=== PATIENT | female | born 1935 | race Caucasian/White ===

== ENCOUNTER 2019-06-20 09:47 | Inpatient (IN) ==
[2019-06-20] MEDS ORDERED: Aspirin 81 MG TAB.CHEW PO ONE (09:56)
[2019-06-20] MEDS ORDERED: Ondansetron 4 MG/2 ML VIAL IVP ONE ×2 (10:04→10:55)
[2019-06-20] MEDS ORDERED: Ondansetron 4 MG/2 ML VIAL ONE (10:05)
[2019-06-20 10:08] LABS: Basophils # 0.1 K/mcL (0.0-0.2); Basophils % 0.7 %; Eosinophils # 0.2 K/mcL (0.0-0.6); Eosinophils % 1.4 %; Hematocrit 47.3 % (35.3-44.9); Hemoglobin 16.2 g/dL (11.5-15.4); Immature Granulocytes % 0.5 % (0-4); Lymphocytes # 1.5 K/mcL (0.6-4.6); Lymphocytes % 10.2 %; Mean Corpuscular HGB Conc 34.2 g/dL (31.6-35.5); Mean Corpuscular Hemoglobin 32.1 pg (28.0-33.3); Mean Corpuscular Volume 93.7 fL (83.0-100.0); Mean Platelet Volume 10.5 fL (9.4-12.4); Monocytes # 1.1 K/mcL (0.0-1.3); Monocytes % 7.5 %; Neutrophils # 11.8 K/mcL (1.6-8.9); Platelet Count 294 K/mcL (140-400); Red Blood Count 5.05 M/mcL (3.82-4.97); Red Cell Distribution Width 12.7 % (11.5-14.5); Segmented Neutrophils % 79.7 %; White Blood Count 14.9 K/mcL (4.3-11.1)
[2019-06-20] MEDS: Nitroglycerin 0.4 MG TAB.SUBL SL PRN ×3 (10:10→11:09)
[2019-06-20 10:31] LABS: BUN/Creatinine Ratio 28 (6-26); Blood Urea Nitrogen 27 mg/dL (8-23); Calcium 10.4 mg/dL (8.6-10.3); Carbon Dioxide 22 mEq/L (23-29); Chloride 102 mEq/L (98-107); Glucose 217 mg/dL (70-105); Osmolality,Calculated 298 (280-300); Potassium 3.8 mEq/L (3.5-5.1); Sodium 138 mEq/L (136-145); eGFR For African Americans > 60 (> 60); eGFR For Non-African Americans 54 (> 60)
[2019-06-20 10:33] LABS: Troponin I < 0.03 ng/mL (< 0.04)
[2019-06-20 10:35] LABS: INR 0.9; Prothrombin Time 10.7 Seconds (9.4-12.1)
[2019-06-20 10:38] LABS: Activated Partial Thrombo Time 27.2 Seconds (26.0-36.0)
[2019-06-20] MEDS ORDERED: Isovue-370 500 ML BOTTLE IVP ONE (10:48)
--- NOTE | 2019-06-20 10:48 | Emergency Department Note ---
Disposition Clinical Impression: Vomiting Qualifiers: Vomiting type: unspecified Vomiting Intractability: non-intractable Nausea presence: with nausea Qualified Code(s): R11.2 - Nausea with vomiting, unspecified Disposition: Admitted As Inpatient Condition: Fair Time of Disposition: 13:34 Abdominal Pain HPI - General Chief Complaint: ED Abdominal Pain Stated Complaint: fall, rib pain Time Seen by Provider: 06/20/19 09:53 Source: patient Mode of arrival: ambulatory Limitations: no limitations Nursing Notes Reviewed: Yes Vital Signs Reviewed: Yes - History of Present Illness HPI Narrative: 83-year-old female brought in by EMS for evaluation of n/v and diaphoresis. Pt reports symptoms started acutely last night. Pt vomited prior to arrival but denied bloody or black emesis. last bm yesterday but none today. ECG showed st elevation in V1, V2 without reciprocal depressions. No chest pain or shortness of breath. Pt denies fever, chills, palpitations, syncope. Pain Scale: 9 - Related Data Home Medications Medication Instructions Recorded Confirmed Aspirin 81 mg PO QPM 08/04/15 06/20/19 Losartan/Hydrochlorothiazide 1 each PO QPM 08/04/15 06/20/19 [Hyzaar 100-12.5 Tablet] Loratadine [Claritin] 10 mg PO DAILY 08/23/18 06/20/19 Tolterodine Tartrate [Detrol] 2 mg PO BID 09/25/18 06/20/19 Cholecalciferol (D-3) [Vitamin D] 2,000 units PO QAM 06/20/19 06/20/19 Metoprolol Succinate [Toprol Xl] 25 mg PO QAM 06/20/19 06/20/19 Multivit-Min/Iron/Folic/Lutein 1 tab PO QPM 06/20/19 06/20/19 [Centrum Silver Women Tablet] Omeprazole 20 mg PO QAM 06/20/19 06/20/19 PARoxetine HCl [Paroxetine HCl] 20 mg PO QAM 06/20/19 06/20/19 Allergies Allergy/AdvReac Type Severity Reaction Status Date / Time Iodinated Contrast Media AdvReac Hives Verified 06/20/19 21:06 Penicillins [PCN] AdvReac Hives Verified 06/20/19 21:06 Znteody-Wci-Rde Reductase AdvReac Muscle Pain Verified 06/20/19 21:06 Inhibitor [Statins] All systems ED: reviewed and negative except as stated. Review of Systems: As Per HPI Abdominal Pain PMH - Past Medical History Medical history: Reports: cancer, CVA, hypertension, renal disease, TIA, other Female Surgical History: Reports: thyroidectomy, other Psychiatric history: Reports: no psych history - Social History Smoking status: Former smoker Alcohol use: Reports: none Drug use: Reports: none Physical Exam - General Limitations: no limitations General appearance: alert - Head Head exam: atraumatic, normocephalic - Chest Chest inspection: Present: normal inspection, symmetric chest wall rise - Respiratory Respiratory exam: Present: normal lung sounds bilaterally. Absent: respiratory distress, wheezes - Cardiovascular Cardiovascular exam: Present: regular rate, normal rhythm - Abdominal Exam Abdominal exam: Present: soft, tenderness (generalized). Absent: distention, guarding, rebound - Expanded Lower Extremity Exam Hip/Pelvis exam: Present: normal inspection Upper leg exam: Present: normal inspection - Back Exam Back exam: Present: normal inspection - Neurological Exam Neurological exam: Present: alert, oriented X3, CN II-XII intact - Psychiatric Psychiatric exam: Present: normal affect, normal mood - Skin Skin exam: Present: warm, diaphoresis (initial but improved during eval) Course Vital Signs Temperature 97.5 F L 06/20/19 09:51 Pulse Rate 75 06/20/19 09:51 Respiratory Rate 22 06/20/19 09:51 Blood Pressure 148/74 06/20/19 09:51 O2 Sat by Pulse Oximetry 92 06/20/19 09:51 Temperature 98.7 F 06/20/19 22:36 Pulse Rate 93 06/20/19 19:45 Respiratory Rate 17 06/20/19 19:45 Blood Pressure 112/74 06/20/19 22:36 O2 Sat by Pulse Oximetry 90 06/20/19 19:45 Oxygen Delivery Oxygen Delivery Room Air Abdominal Pain - MDM Narrative Medical decision making narrative: Unlikely STEMI without reciprocal depressions. CT abd/pelvis showed possible early SBO and general surgery, Dr. Lane, was consulted regarding case and presentation. Symptoms most likely related to findings on CT abd/pelvis. Pt became hypoxic while waiting for CT. hypoxia improved with supplemental O2. Pt was not in respiratory distress at this time. D dimer was elevated and CTA chest ordered for evaluation of PE. contrast listed as allergy but pt reports she has had contrast with scan in recent past. Pt given solumedrol and benadryl prior to CT and had no complications during or immediately after contrast given. CT did not show evidence of PE. Initial trop negative. Cardiology, Dr. Kaufman consulted regarding pt case who agreed not a STEMI. Pt will be admitted to hospitalist for further evaluation with general surgery and cardiology consult. - Medical Records Medical records reviewed: Yes I reviewed the patient's medical records. - Lab Data Lab results reviewed: Yes I reviewed the patient's lab results. Result diagrams: 06/20/19 09:58 06/20/19 15:59 Lab Results 06/20/19 06/20/19 06/20/19 Range/Units 09:58 09:58 09:58 WBC 14.9 H (4.3-11.1) K/mcL RBC 5.05 H (3.82-4.97) M/mcL Hgb 16.2 H (11.5-15.4) g/dL Hct 47.3 H (35.3-44.9) % MCV 93.7 (83.0-100.0) fL MCH 32.1 (28.0-33.3) pg MCHC 34.2 (31.6-35.5) g/dL RDW 12.7 (11.5-14.5) % Plt Count 294 (140-400) K/mcL MPV 10.5 (9.4-12.4) fL Immature Gran % 0.5 (0-4) % Seg Neutrophils % 79.7 % Lymphocytes % 10.2 % Monocytes % 7.5 % Eosinophils % 1.4 % Basophils % 0.7 % Neutrophils # 11.8 H (1.6-8.9) K/mcL Lymphocytes # 1.5 (0.6-4.6) K/mcL Monocytes # 1.1 (0.0-1.3) K/mcL Eosinophils # 0.2 (0.0-0.6) K/mcL Basophils # 0.1 (0.0-0.2) K/mcL PT 10.7 (9.4-12.1) Seconds INR 0.9 APTT 27.2 (26.0-36.0) Seconds D-Dimer 1475 H (0-500) ng/mLFEU Sodium 138 (136-145) mEq/L Potassium 3.8 (3.5-5.1) mEq/L Chloride 102 (98-107) mEq/L Carbon Dioxide 22 L (23-29) mEq/L BUN 27 H (8-23) mg/dL Creatinine 0.98 (0.60-1.20) mg/dL Est GFR ( Amer) > 60 (> 60) Est GFR (Non-Af Amer) 54 L (> 60) BUN/Creatinine Ratio 28 H (6-26) Glucose 217 H (70-105) mg/dL Calculated Osmolality 298 (280-300) Calcium 10.4 H (8.6-10.3) mg/dL Troponin I < 0.03 (< 0.04) ng/mL Specimen Rejected 06/20/19 Range/Units 14:38 WBC (4.3-11.1) K/mcL RBC (3.82-4.97) M/mcL Hgb (11.5-15.4) g/dL Hct (35.3-44.9) % MCV (83.0-100.0) fL MCH (28.0-33.3) pg MCHC (31.6-35.5) g/dL RDW (11.5-14.5) % Plt Count (140-400) K/mcL MPV (9.4-12.4) fL Immature Gran % (0-4) % Seg Neutrophils % % Lymphocytes % % Monocytes % % Eosinophils % % Basophils % % Neutrophils # (1.6-8.9) K/mcL Lymphocytes # (0.6-4.6) K/mcL Monocytes # (0.0-1.3) K/mcL Eosinophils # (0.0-0.6) K/mcL Basophils # (0.0-0.2) K/mcL PT (9.4-12.1) Seconds INR APTT (26.0-36.0) Seconds D-Dimer (0-500) ng/mLFEU Sodium (136-145) mEq/L Potassium (3.5-5.1) mEq/L Chloride (98-107) mEq/L Carbon Dioxide (23-29) mEq/L BUN (8-23) mg/dL Creatinine (0.60-1.20) mg/dL Est GFR ( Amer) (> 60) Est GFR (Non-Af Amer) (> 60) BUN/Creatinine Ratio (6-26) Glucose (70-105) mg/dL Calculated Osmolality (280-300) Calcium (8.6-10.3) mg/dL Troponin I (< 0.04) ng/mL Specimen Rejected Hemolyzed - Radiology Data Radiology results reviewed: Yes I reviewed the patient's radiology results. - EKG Data EKG attestation: Yes I reviewed and interpreted this EKG. EKG results narrative: ECG #1 NSR with rate <100 ST elevation in V1, V2 with LBBB morphology. No reciprocal depressions. ECG #2 NSR with rate of 75 unchanged from previous except for +PVC
[2019-06-20] MEDS ORDERED: methylPREDNISolone 125 MG/2 ML VIAL IVP ONE (10:55)
[2019-06-20] MEDS ORDERED: 0.9 % Sodium Chloride 1,000 ML IVC ONE (13:45)
[2019-06-20] MEDS ORDERED: Naloxone 0.4 MG/ML INJ IVP PRN (15:34)
--- NOTE | 2019-06-20 15:48 | Internal Med History&Physical ---
Date of Encounter: 06/20/19 Time of Encounter: 15:00 Internal Medicine - H&P: HPI Chief complaint: Nausea and vomiting Admitted From: Emergency Dept Plans for Post Hospital Care: Home History of present illness: Ms. Marrero is a 83 year old female with a past medical history significant for hypertension, presented to the emergency department because of acute onset of crampy abdominal pain and nausea and vomiting since last night. Patient describes her abdominal pain is generalized, nonradiating, sharp, aggravated w ith the food, no relieving factors. Associated with nausea and vomiting, started in the morning today, containing food particles, no blood noted. Patient mentioned that throughout the night she was having nausea and burping. Denies any fevers chills or rigors. Denies any complaints like this in the past. Denies any history of ulcerative colitis or Crohn disease. Does mention history of hernia repair in the past. Patient mentioned that her last meal was yesterday evening. She did have a bowel movement yesterday morning, containing solid and liquid components without any blood. She was passing flatus yesterday but she is not sure if she has passed any flatus today. Currently she is f eeling very nauseated. In the emergency department patient was hemodynamically stable. Lab work showed leukocytosis with WBC count of 14.9, hemoglobin of 16.2, elevated d-dimer. Patient EKG was obtained which showed questionable ST elevation in V1, V2, V3. Patient denies any chest pain and shortness of breath. EKG was repeated again which showed the same changes. Troponins are negative. In the context of her findings, it was unlikely that the patient is having any ST elevation myocardial infarction. Patient also had a few PVCs on the court recording monitor. There were also findings of low oxygen saturation and monitor around 88%. D- dimer was elevated. CTA was obtained which was negative for pulmonary embolism. CT also did not show any other evidence of pneumonia or findings explaining her oxygen saturations. In the ED, surgery was consulted. Recommended conservative management. Also recommended CT scan of the abdomen with oral contrast was ordered by the ED physician. Patient is admitted for further management. Past Med Surg Social Fam HX - Past Medical History Medical history: cancer, CVA, hypertension, renal disease, TIA, other Additional medical history: breast cancer Psychiatric history: no psych history - Past Surgical History Surgical History: herniorrhaphy, other Additional surgical history: kidney stone removed L kidney, hernia repair, tubal ligation left lumpectomy, d&c, carpal tunnel, lithotripsy, bilateral breast bx, parthyroidectomy, tyroid nodule and parathyroid, left breast cancer. - Social History Smoking Status: Former smoker Smokeless Tobacco Status: No Alcohol use: none Drug use: none - Family History Father Hx Family Cardiac Disorders: Yes - Additional Family History Additional family history: All brothers ahve CAD. SIster has breast CA and atrial fib Internal Medicine - H&P: Meds Aspirin 81 mg PO DAILY 08/04/15 [History] Cholecalciferol (Vitamin D3) [Vitamin D] 2,000 unit PO DAILY 08/04/15 [History] Losartan/Hydrochlorothiazide [Hyzaar 100-12.5 Tablet] 1 each PO DAILY 08/04/15 [History] Multivitamin [Flintstones] 1 each PO DAILY 08/04/15 [History] Omeprazole [PriLOSEC] 20 mg PO DAILY 08/04/15 [History] Paroxetine [Paxil] 10 mg PO DAILY 08/04/15 [History] Metoprolol [Lopressor] 12.5 mg PO DAILY 08/24/17 [History] Loratadine [Claritin] 10 mg PO DAILY 08/23/18 [History] Tolterodine Tartrate [Detrol] 2 mg PO BID 09/25/18 [History] Guaifenesin [Mucinex] 600 mg PO BID #20 tab.er.12h 01/24/19 [Rx] Allergy/AdvReac Type Severity Reaction Status Date / Time Iodinated Contrast Media AdvReac Hives Verified 01/24/19 10:36 Penicillins [PCN] AdvReac Hives Verified 01/24/19 10:36 Oludthx-Mja-Ywp Reductase AdvReac Muscle Pain Verified 01/24/19 10:36 Inhibitor [Statins] All Systems PM: A 10-system review of systems was performed and is negative for pertinent findings except as documented above in the HPI. Review of systems: General: Negative for fever, chills, rigors. HEENT: Negative for neck swelling, discharge from nose, discharge from ears. EYES: Negative for any discharge from the eyes. Respiratory: Negative for shortness of breath, orthopnea, exertional dyspnea Cardiovascular: Negative for chest pain, shortness of breath, orthopnea, PND. Gastrintestical: See HPI Genitourinary: Hx of urinary urgency and incontinence Hematological: Negative for blood loss, negative for active cancer. Hx of breast cancr, in remisison Neurological: Negative for headache, dizziness, blurry vision, loss os power and sensations. Endocrinology: Negative for constipation, polyuria, polydipsia. Integumentary: Negative for rash, wounds, ulcers. Psychiatric: Negative for anxiety or depression. - Constitutional Vitals: Temp Pulse Resp BP Pulse Ox 97.5 F L 92 20 148/98 100 06/20/19 09:51 06/20/19 13:30 06/20/19 12:00 06/20/19 13:30 06/20/19 13:30 Exam: General: Alert and oriented, mild physical distress, able to follow commands. HEENT: No thyromegaly, no lymphadenopathy, no discharge. Eyes: No discharge. Normal conjuctiva, no icterus Respiratory: Normal vesicular breathing, no added sounds, breathing equal in both sides. CVS: Normal heart sounds, no murmurs, regular rhthm, no edema Extremities: No peripheral edema, peripheral pulses intact. Lymph nodes: No lymphadenopathy Gastrointestinal: Abdomen soft, ditended, mildly tender in all quadrants. Bowel sounds appreciated Genitourinary: No paravertebral tenderness. Skin: No rash, ulcers or wound. Neurological: Alert and oriented. No focal deficits. Cranial nerves II-XII intact. Internal Med - H&P Results - Labs CBC & Chem 7: 06/20/19 09:58 06/20/19 09:58 Labs: Short CBC 06/20/19 Range/Units 09:58 WBC 14.9 H (4.3-11.1) K/mcL Hgb 16.2 H (11.5-15.4) g/dL Hct 47.3 H (35.3-44.9) % Plt Count 294 (140-400) K/mcL Neutrophils # 11.8 H (1.6-8.9) K/mcL BMP 06/20/19 09:58 Sodium 138 Potassium 3.8 Chloride 102 Carbon Dioxide 22 L BUN 27 H Creatinine 0.98 Glucose 217 H Calcium 10.4 H Cardiac Enzymes 06/20/19 Range/Units 09:58 Troponin I < 0.03 (< 0.04) ng/mL - Impressions ITS Impressions Chest X-Ray 06/20/19 09:54 IMPRESSION: No acute abnormality. Moderate-sized hiatal hernia. D/ / Humphrey Morales MD / Humphrey Morales MD Interpreting Provider: Humphrey Morales MD Abdomen/Pelvis CT 06/20/19 09:56 IMPRESSION: 1. Mildly dilated loops of small bowel predominantly within the mid to lower abdomen with collapse of the distal ileum. Although a discrete transition point is not identified, findings are highly suspicious for early/developing high-grade small bowel obstruction given mesenteric edema and trace ascites. 2. Large hiatal hernia. 3. Few 3-4 mm nodules within the right middle lobe and lingula, nonspecific and may be infectious or inflammatory in etiology. These can be followed up per Fleischner Society guidelines. RECOMMENDATIONS: Guidelines for follow-up and management of pulmonary nodules found on abdomen CT: <6 mm - No follow up recommend on the basis of the estimated low risk of malignancy. 6-8-mm - recommend follow-up chest CT after an appropriate interval (3-12 months depending on clinical risk). >8mm - immediate chest CT for further evaluation. Radiology 2017 http://pubs.rsna.org/doi/full/10.1148/[email or web address] D/ / 06/20/2019 11:19:18 [facility] Faye MD / [facility] Inter[facility] Provider: Maty Fyae MD Chest CTA 06/20/19 12:18 IMPRESSION: 1. No CTA evidence for acute pulmonary embolus. Otherwise, stable CT scan chest. D/ / Mirza Roman MD / Mirza Roman MD Interpreting Provider: Mirza Roman MD - Assessment and Plan (1) Small bowel obstruction Current Visit: Yes Status: Acute Assessment and plan: Presented with abdominal pain, nausea and vomiting. CT scan of the abdomen without contrast showed mildly dilated loops of small bowel predominantly within the mid to lower abdomen with collapse of the distal ileum. Discrete transition point is not identified. Findings highly suspicious for early high-grade small bowel obstruction given mesenteric edema and trace ascites. Large hiatal hernia. Also showed 3-4 mm nodules within the right middle lobe and lingula which could be inflammatory or infectious. Has a history of hernia repair. Contributing factor?? Surgery was consulted in the emergency department. Recommended conservative management. Will keep the patient nothing by mouth. Monitor electrolytes. IV fluids. NG tube placement. Repeat labs ordered to recheck the electrolytes Considering the patient had multiple episodes of vomiting since morning. (2) Nausea and vomiting Current Visit: Yes Status: Acute Assessment and plan: Zofran ordered for nausea and vomiting. Qualifiers: Vomiting type: unspecified Vomiting Intractability: intractable Qualified Code(s): R11.2 - Nausea with vomiting, unspecified (3) Hypertension Current Visit: Yes Status: Acute Assessment and plan: Currently blood pressure in the 150s. Hold off oral medications. IV hydralazine as needed for hypertension. Qualifiers: Hypertension type: essential hypertension Qualified Code(s): I10 - Essential (primary) hypertension (4) DVT prophylaxis Current Visit: Yes Status: Acute Assessment and plan: Subcutaneous heparin. (5) Abnormal EKG Current Visit: Yes Status: Acute Assessment and plan: Initial EKG showed ST elevation in V1, V2, V3. Elevationst were very mild. No other reciprocal changes in any other leads. EKG was repeated the same changes. No previous cardiac hx Patient also had a few PVCs on telemetry at that time patient was having nausea and vomiting and she was in distress. First troponin was negative. Repeat the troponin. Telemetry. (6) Hypoxia Current Visit: Yes Status: Acute Assessment and plan: Patient was noted to be hypoxic with saturations in high 80s. D-dimer was collected which was elevated. CT was done which was negative for pulmonary embolism. Hypoxia could be related to distress and abdominal distention. Abdominal decompression with NG tube. - Time Spent With Patient Total time spent is greater than 50% in coordination of care (as documented) at patient's floor/unit and/or counseling patient:
--- NOTE | 2019-06-20 16:42 | AcuteCare Surgery Consult Note ---
Date of Encounter: 06/20/19 Time of Encounter: 16:40 Assessment and Plan (1) Small bowel obstruction Current Visit: Yes Status: Acute 83F with concern for small bowel obstruction; having bowel function so may be resolving; awaiting results from repeat CT NPO iVF if vomits, then NG tube replace electrolytes activity as tolerated judicious use of narcotics; AM KUB serial exams will continue to follow, no acute surgery History of Present Illness Consult date: 06/20/19 Reason for consult: abdominal pain History of present illness: 83F PMh significant for breast cancer, CVA/TIA, HTN, prior ventral and umbilical hernia repair (unknown if mesh used) who presents with a one day history of crampy abdominal pain. The pain is localized to the mid abdomen, non radiating, no alleviating or exacerbating factors and no identifiable preciptating event. The pain rates 8/10, but controllable. The pain is associated with nausea and vomiting, non bloody, but bilious in nature. due to the nature of her symptoms she presented to the ED for further evaluation. A CT scan was obtained which was concerning for a possible small bowel obstruction, no identifiable transition point. Of note the patient has had flatus today, just prior to my evaluation. Past Med Surg Social Fam HX - Past Medical History Medical history: cancer, CVA, hypertension, renal disease, TIA, other Additional medical history: breast cancer Psychiatric history: no psych history - Past Surgical History Surgical History: herniorrhaphy, other Additional surgical history: kidney stone removed L kidney, hernia repair, tubal ligation left lumpectomy, d&c, carpal tunnel, lithotripsy, bilateral breast bx, parthyroidectomy, tyroid nodule and parathyroid, left breast cancer. - Social History Smoking Status: Former smoker Smokeless Tobacco Status: No Alcohol use: none Drug use: none - Family History Father Hx Family Cardiac Disorders: Yes Medications and Allergies Aspirin 81 mg PO DAILY 08/04/15 [History] Cholecalciferol (Vitamin D3) [Vitamin D] 2,000 unit PO DAILY 08/04/15 [History] Losartan/Hydrochlorothiazide [Hyzaar 100-12.5 Tablet] 1 each PO DAILY 08/04/15 [History] Multivitamin [Flintstones] 1 each PO DAILY 08/04/15 [History] Omeprazole [PriLOSEC] 20 mg PO DAILY 08/04/15 [History] Paroxetine [Paxil] 10 mg PO DAILY 08/04/15 [History] Metoprolol [Lopressor] 12.5 mg PO DAILY 08/24/17 [History] Loratadine [Claritin] 10 mg PO DAILY 08/23/18 [History] Tolterodine Tartrate [Detrol] 2 mg PO BID 09/25/18 [History] Guaifenesin [Mucinex] 600 mg PO BID #20 tab.er.12h 01/24/19 [Rx] Allergy/AdvReac Type Severity Reaction Status Date / Time Iodinated Contrast Media AdvReac Hives Verified 01/24/19 10:36 Penicillins [PCN] AdvReac Hives Verified 01/24/19 10:36 Lmkzofd-Ixx-Wst Reductase AdvReac Muscle Pain Verified 01/24/19 10:36 Inhibitor [Statins] Review of Systems All systems PM: 12 point ROS negative besides HPI findings General Surgery Exam Initial Vital Signs Temp Pulse Resp BP Pulse Ox 97.5 F L 75 22 148/74 92 06/20/19 09:51 06/20/19 09:51 06/20/19 09:51 06/20/19 09:51 06/20/19 09:51 - General physical appearance no distress - Eyes PERRL, normal ocular movement - ENT normocephalic - Neck trachea midline, no lymphadectomy - Respiratory normal expansion, normal respiratory effort - Cardiovascular Cardiovascular exam: Present: RRR - Abdomen Abdomen general surgery: Present: soft, distended, tender (non peritoneal, along mid abdomen; ), surgical scars - Integumentary Integumentary general surgery: Present: warm and dry - Neurologic Present: CN 2-12 grossly intact - Musculoskeletal Present: normal gait, normal posture - Psychiatric Psychiatric general surgery: Present: A&Ox3 Exam Initial Vital Signs Temp Pulse Resp BP Pulse Ox 97.5 F L 75 22 148/74 92 06/20/19 09:51 06/20/19 09:51 06/20/19 09:51 06/20/19 09:51 06/20/19 09:51 Results - Labs 06/20/19 09:58 06/20/19 09:58 Abnormal lab results WBC 14.9 K/mcL (4.3-11.1) H 06/20/19 09:58 RBC 5.05 M/mcL (3.82-4.97) H 06/20/19 09:58 Hgb 16.2 g/dL (11.5-15.4) H 06/20/19 09:58 Hct 47.3 % (35.3-44.9) H 06/20/19 09:58 Neutrophils # 11.8 K/mcL (1.6-8.9) H 06/20/19 09:58 D-Dimer 1475 ng/mLFEU (0-500) H 06/20/19 09:58 Carbon Dioxide 22 mEq/L (23-29) L 06/20/19 09:58 BUN 27 mg/dL (8-23) H 06/20/19 09:58 Est GFR (Non-Af Amer) 54 (> 60) L 06/20/19 09:58 BUN/Creatinine Ratio 28 (6-26) H 06/20/19 09:58 Glucose 217 mg/dL (70-105) H 06/20/19 09:58 Calcium 10.4 mg/dL (8.6-10.3) H 06/20/19 09:58 Diabetes panel 06/20/19 Range/Units 09:58 Sodium 138 (136-145) mEq/L Potassium 3.8 (3.5-5.1) mEq/L Chloride 102 (98-107) mEq/L Carbon Dioxide 22 L (23-29) mEq/L BUN 27 H (8-23) mg/dL Creatinine 0.98 (0.60-1.20) mg/dL Glucose 217 H (70-105) mg/dL Calcium 10.4 H (8.6-10.3) mg/dL Calcium panel 06/20/19 Range/Units 09:58 Calcium 10.4 H (8.6-10.3) mg/dL Pituitary panel 06/20/19 Range/Units 09:58 Sodium 138 (136-145) mEq/L Potassium 3.8 (3.5-5.1) mEq/L Chloride 102 (98-107) mEq/L Carbon Dioxide 22 L (23-29) mEq/L BUN 27 H (8-23) mg/dL Creatinine 0.98 (0.60-1.20) mg/dL Glucose 217 H (70-105) mg/dL Calcium 10.4 H (8.6-10.3) mg/dL Adrenal panel 06/20/19 Range/Units 09:58 Sodium 138 (136-145) mEq/L Potassium 3.8 (3.5-5.1) mEq/L Chloride 102 (98-107) mEq/L Carbon Dioxide 22 L (23-29) mEq/L BUN 27 H (8-23) mg/dL Creatinine 0.98 (0.60-1.20) mg/dL Glucose 217 H (70-105) mg/dL Calcium 10.4 H (8.6-10.3) mg/dL All other labs normal. - Imaging CT scan - abdomen: report reviewed, image reviewed CT scan - pelvis: report reviewed, image reviewed Consult Discharge Plan - Plan Referrals: Juan Randall DO [Primary Care Provider] -
[2019-06-20 17:13] LABS: BUN/Creatinine Ratio 27 (6-26); Blood Urea Nitrogen 26 mg/dL (8-23); Calcium 10.8 mg/dL (8.6-10.3); Carbon Dioxide 20 mEq/L (23-29); Chloride 101 mEq/L (98-107); Glucose 168 mg/dL (70-105); Magnesium 1.8 mg/dL (1.6-2.6); Osmolality,Calculated 293 (280-300); Potassium 3.9 mEq/L (3.5-5.1); Sodium 137 mEq/L (136-145); Troponin I < 0.03 ng/mL (< 0.04); eGFR For African Americans > 60 (> 60); eGFR For Non-African Americans 56 (> 60)
[2019-06-20] MEDS: *HR* Heparin 5,000 UNIT/ML VIAL SQ SCH (18:40)
[2019-06-20] MEDS: Pantoprazole 40 MG VIAL IVP SCH (18:40)
[2019-06-20] MEDS: Ondansetron 4 MG/2 ML VIAL IVP PRN (18:51)
[2019-06-21] MEDS: Ringers Solution, Lactated 1,000 ML IVC SCH ×3 (01:37→11:51)
[2019-06-21 05:15] LABS: Basophils % 0.2 %; Hematocrit 46.1 % (35.3-44.9); Hemoglobin 15.3 g/dL (11.5-15.4); Immature Granulocytes % 0.5 % (0-4); Lymphocytes # 0.7 K/mcL (0.6-4.6); Lymphocytes % 4.3 %; Mean Corpuscular HGB Conc 33.2 g/dL (31.6-35.5); Mean Corpuscular Hemoglobin 32.6 pg (28.0-33.3); Mean Corpuscular Volume 98.3 fL (83.0-100.0); Mean Platelet Volume 10.8 fL (9.4-12.4); Monocytes # 1.3 K/mcL (0.0-1.3); Monocytes % 7.6 %; Neutrophils # 14.8 K/mcL (1.6-8.9); Platelet Count 274 K/mcL (140-400); Red Blood Count 4.69 M/mcL (3.82-4.97); Segmented Neutrophils % 87.4 %; White Blood Count 16.9 K/mcL (4.3-11.1)
[2019-06-21 05:34] LABS: BUN/Creatinine Ratio 25 (6-26); Blood Urea Nitrogen 21 mg/dL (8-23); Calcium 9.5 mg/dL (8.6-10.3); Carbon Dioxide 24 mEq/L (23-29); Chloride 104 mEq/L (98-107); Glucose 140 mg/dL (70-105); Magnesium 1.9 mg/dL (1.6-2.6); Osmolality,Calculated 291 (280-300); Phosphorous 3.5 mg/dL (2.7-4.5); Potassium 3.8 mEq/L (3.5-5.1); Sodium 138 mEq/L (136-145); eGFR For African Americans > 60 (> 60); eGFR For Non-African Americans > 60 (> 60)
[2019-06-21] MEDS: *HR* Heparin 5,000 UNIT/ML VIAL SQ SCH ×2 (06:03→17:46)
[2019-06-21] MEDS: Pantoprazole 40 MG VIAL IVP SCH ×2 (06:03→17:46)
[2019-06-21] MEDS: Ondansetron 4 MG/2 ML VIAL IVP PRN (07:05)
--- NOTE | 2019-06-21 10:16 | AcuteCareSurgery Progress Note ---
Date of Encounter: 06/21/19 Time of Encounter: 08:30 - Assessment and Plan (1) Small bowel obstruction Current Visit: Yes Status: Acute Nausea persists. Will plan to place NGT for GI decmpression. NPO/IVF. Start IV abx d/t increasing leukocytosis. SBFT tomorrow. (2) Hypertension Current Visit: Yes Status: Chronic Qualifiers: Hypertension type: essential hypertension Qualified Code(s): I10 - Essential (primary) hypertension Subjective Patient reports: no new complaints, feels better, still having pain, pain is less, no flatus, no bowel movement, nausea Objective Vital Signs - Last 8 Hours Temp Pulse Resp BP Pulse Ox 06/21/19 09:12 93 06/21/19 07:34 98.6 F 89 16 144/81 93 06/21/19 03:42 98.7 F 104 15 129/65 91 Intake and Output 06/20/19 06/21/19 06/21/19 23:59 07:59 15:59 Intake Total 102 / 102 Output Total 0 / 0 250 / 250 Balance 102 / 102 -250 / -250 Intake: IV Fluids 102 / 102 Magnesium Sulfate 1 GM In 0.9 % 102 / 102 Sodium Chloride 100 ML @ 100 mls/hr IVPB ONCE ONE Rx#: [id number] Oral 0 / 0 Output: Urine 0 / 0 250 / 250 Other: # Voids 1 1 Weight 167.7 kg 126.189 kg Blood Glucose* 115 Patient Weight 06/21/19 23:59 Weight 126.189 kg - General physical appearance no distress, moderate pain - Eyes PERRL, normal ocular movement - ENT no congestion, dry mucosa - Neck Neck exam: trachea midline, no venous distension - Respiratory normal respiratory effort, clear to auscultation - Cardiovascular Cardiovascular exam: Present: RRR. Absent: JVD - Abdomen Abdomen: Present: bowel sounds present (hypoactive), soft, distended, tender Abdominal Tenderness: diffusely - Genitourinary normal external genitalia - Integumentary no rash - Neurologic CN 2-12 grossly intact, normal coordination - Musculoskeletal normal posture - Psychiatric oriented to time, oriented to person, oriented to place - Labs 06/21/19 04:47 06/21/19 04:47 Diabetes panel 06/20/19 06/20/19 06/21/19 Range/Units 09:58 15:59 04:47 Sodium 138 137 138 (136-145) mEq/L Potassium 3.8 3.9 3.8 (3.5-5.1) mEq/L Chloride 102 101 104 (98-107) mEq/L Carbon Dioxide 22 L 20 L 24 (23-29) mEq/L BUN 27 H 26 H 21 (8-23) mg/dL Creatinine 0.98 0.96 0.84 (0.60-1.20) mg/dL Glucose 217 H 168 H 140 H (70-105) mg/dL Calcium 10.4 H 10.8 H 9.5 (8.6-10.3) mg/dL Calcium panel 06/20/19 06/20/19 06/21/19 Range/Units 09:58 15:59 04:47 Calcium 10.4 H 10.8 H 9.5 (8.6-10.3) mg/dL Phosphorus 3.5 (2.7-4.5) mg/dL Pituitary panel 06/20/19 06/20/19 06/21/19 Range/Units 09:58 15:59 04:47 Sodium 138 137 138 (136-145) mEq/L Potassium 3.8 3.9 3.8 (3.5-5.1) mEq/L Chloride 102 101 104 (98-107) mEq/L Carbon Dioxide 22 L 20 L 24 (23-29) mEq/L BUN 27 H 26 H 21 (8-23) mg/dL Creatinine 0.98 0.96 0.84 (0.60-1.20) mg/dL Glucose 217 H 168 H 140 H (70-105) mg/dL Calcium 10.4 H 10.8 H 9.5 (8.6-10.3) mg/dL Adrenal panel 06/20/19 06/20/19 06/21/19 Range/Units 09:58 15:59 04:47 Sodium 138 137 138 (136-145) mEq/L Potassium 3.8 3.9 3.8 (3.5-5.1) mEq/L Chloride 102 101 104 (98-107) mEq/L Carbon Dioxide 22 L 20 L 24 (23-29) mEq/L BUN 27 H 26 H 21 (8-23) mg/dL Creatinine 0.98 0.96 0.84 (0.60-1.20) mg/dL Glucose 217 H 168 H 140 H (70-105) mg/dL Calcium 10.4 H 10.8 H 9.5 (8.6-10.3) mg/dL Consult Discharge Plan - Plan Referrals: Juan Randall DO [Primary Care Provider] -
--- NOTE | 2019-06-21 10:28 | Cardiology Consult Note ---
Date of Encounter: 06/21/19 Time of Encounter: 09:00 Assessment and Plan (1) Abnormal EKG Current Visit: Yes Status: Ruled-out EKG reviewed with Dr. Kaufman and compared to EKG in 2015. No ischemic changes noted. Troponins negative x2. Denies chest pain. 12hr tele reviewed: NSR with occasional PVCs. Will check an Echocardiogram, if normal- will sign off. (2) Hypertension Current Visit: Yes Status: Chronic Continue home antihypertensives (Toprol XL, Hyzaar). Management per primary team. Qualifiers: Hypertension type: essential hypertension Qualified Code(s): I10 - Essential (primary) hypertension Discussion w patient/family: The assessment and plan as outlined above was discussed with the patient and/or family members who expressed understanding and agreement. All questions were answered. Thank you for involving us in the care of your patient. Please call with any questions. Will discuss the above assessment and plan with Dr. Kaufman and make changes as necessary. History of Present Illness Consult date: 06/20/19 Consult reason: EKG changes History of present illness: Ms. Marrero is a 83 year old female with a PMH significant for HTN, presented to the ED d/t of acute onset of cramping abdominal pain w/ N/V. Pt describes her abdominal pain as generalized, nonradiating, sharp, aggravated with the food, no relieving factors. Associated with N/V, started in the morning today, containing food particles, no blood noted. Patient mentioned that throughout the night she was having nausea and burping. Patient denies chest pain and history of CAD. Past Med Surg Social Fam HX - Past Medical History Medical history: cancer, CVA, hypertension, renal disease, TIA, other Additional medical history: breast cancer Psychiatric history: no psych history - Past Surgical History Surgical History: herniorrhaphy, other Additional surgical history: kidney stone removed L kidney, hernia repair, tubal ligation left lumpectomy, d&c, carpal tunnel, lithotripsy, bilateral breast bx, parthyroidectomy, tyroid nodule and parathyroid, left breast cancer. - Social History Smoking Status: Former smoker Smokeless Tobacco Status: No Alcohol use: none Drug use: none - Family History Father Hx Family Cardiac Disorders: Yes Medications and Allergies Aspirin 81 mg PO QPM 08/04/15 [History] Losartan/Hydrochlorothiazide [Hyzaar 100-12.5 Tablet] 1 each PO QPM 08/04/15 [History] Loratadine [Claritin] 10 mg PO DAILY 08/23/18 [History] Tolterodine Tartrate [Detrol] 2 mg PO BID 09/25/18 [History] Cholecalciferol (D-3) [Vitamin D] 2,000 units PO QAM 06/20/19 [History] Metoprolol Succinate [Toprol Xl] 25 mg PO QAM 06/20/19 [History] Multivit-Min/Iron/Folic/Lutein [Centrum Silver Women Tablet] 1 tab PO QPM [History] Omeprazole 20 mg PO QAM 06/20/19 [History] PARoxetine HCl [Paroxetine HCl] 20 mg PO QAM 06/20/19 [History] Allergy/AdvReac Type Severity Reaction Status Date / Time Iodinated Contrast Media AdvReac Hives Verified 06/20/19 21:06 Penicillins [PCN] AdvReac Hives Verified 06/20/19 21:06 Givvwix-Jxe-Tqw Reductase AdvReac Muscle Pain Verified 06/20/19 21:06 Inhibitor [Statins] All Systems Review: The remainder of the systems were reviewed and are negative - Cardiovascular Cardiovascular: as per HPI, no chest pain at rest, no chest pain with exertion Physical Examination Vital Signs, Last 4 Hours Temp Pulse Resp BP Pulse Ox 06/21/19 09:12 93 06/21/19 07:34 98.6 F 89 16 144/81 93 General: Conversant, No Apparent Distress HEENT: Atraumatic, Normocephaly, Mucus Membranes Moist Neck: No JVD, Normal carotid pulses Cardiac: Reg Rate and Rhythm, Normal S1 and S2, No Murmur Lungs: Normal Breath Sounds, No Wheeze, Rales, Rhonchi Neuro: Alert and responsive, No focal deficits noted Extremities: No Clubbing, No Cyanosis, No Edema, Normal Pulses Results 06/21/19 04:47 06/21/19 04:47 Lab Results 06/20/19 06/20/19 06/20/19 09:58 09:58 15:59 WBC Hgb Hct Plt Count INR 0.9 APTT 27.2 D-Dimer 1475 H Sodium 138 137 Potassium 3.8 3.9 Chloride 102 101 Carbon Dioxide 22 L 20 L BUN 27 H 26 H Creatinine 0.98 0.96 Glucose 217 H 168 H Calcium 10.4 H 10.8 H Magnesium 1.8 Troponin I < 0.03 < 0.03 06/21/19 06/21/19 04:47 04:47 WBC 16.9 H Hgb 15.3 Hct 46.1 H Plt Count 274 INR APTT D-Dimer Sodium 138 Potassium 3.8 Chloride 104 Carbon Dioxide 24 BUN 21 Creatinine 0.84 Glucose 140 H Calcium 9.5 Magnesium 1.9 Troponin I - Imaging and Cardiology Other Results: 12hr tele reviewed: average HR 100, sinus with occassional PVCs. - EKG Interpretation EKG results cardiology: personally reviewed, normal ECG, sinus rhythm, no diagnostic ischemia Consult Discharge Plan - Plan Referrals: Juan Randall DO [Primary Care Provider] -
--- NOTE | 2019-06-21 11:40 | Electrocardiograph Report ---
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
[2019-06-21] MEDS: levoFLOXacin 750 MG/150 ML 750 MG/150 ML BAG IVPB SCH (11:50)
--- NOTE | 2019-06-21 12:35 | Internal Med Progress Note ---
Hospitalist Progress Note - Encounter Date of Encounter: 06/21/19 Time of Encounter: 08:35 - Subjective Interval History: The patient was seen at bedside. Mentions that she had improvement last night in terms of nausea and vomiting and abdominal pain but since morning she has been feeling worse. Combining of nausea without any vomiting. Complaining of worsening abdominal pain. Denies any fever, chills, rigors. Leukocytosis worsened. Denies any chest pain or shortness of breath. Has not moved her bowels since admission. She was passing the flatus last night, no flatus since morning. Got the x-ray KUB in the morning. - Exam Vitals: Temp Pulse Resp BP Pulse Ox 98.6 F 92 16 159/89 94 06/21/19 11:45 06/21/19 11:45 06/21/19 11:45 06/21/19 11:45 06/21/19 11:45 Exam: General: Alert and oriented, mild physical distress, able to follow commands. Respiratory: Normal vesicular breathing, no added sounds, breathing equal in both sides. CVS: Normal heart sounds, no murmurs, regular rhthm, no edema Extremities: No peripheral edema, peripheral pulses intact. Lymph nodes: No lymphadenopathy Gastrointestinal: Abdomen soft, ditended althought distention looks better than yesterday, mildly tender in all quadrants decreased as compared to yesterday. Bowel sounds very scant. Genitourinary: No paravertebral tenderness. Skin: No rash, ulcers or wound. Neurological: Alert and oriented. No focal deficits. Cranial nerves II-XII intact. - Assessment and Plan (1) Small bowel obstruction Current Visit: Yes Status: Acute Assessment and Plan: Presented with abdominal pain, nausea and vomiting. CT scan of the abdomen without contrast showed mildly dilated loops of small bowel predominantly within the mid to lower abdomen with collapse of the distal ileum. Discrete transition point is not identified. Findings highly suspicious for early high-grade small bowel obstruction given mesenteric edema and trace ascites. Large hiatal hernia. Also showed 3-4 mm nodules within the right middle lobe and lingula which could be inflammatory or infectious. CT scan of the abdomen with oral contrast reported the same findings. Has a history of hernia repair. Contributing factor?? X-ray KUB in the morning showed persistent dilated loops of small bowel in keeping with history of small bowel obstruction Surgery on board, conservative management for now. Will keep the patient nothing by mouth. Monitor electrolytes. IV fluids. NG tube placement as per surgery. Patient has been started on antibiotics because of worsening leukocytosis. (2) Nausea and vomiting Current Visit: Yes Status: Acute Assessment and Plan: Zofran ordered for nausea and vomiting. (3) Hypertension Current Visit: Yes Status: Chronic Assessment and Plan: Currently blood pressure in the 150s. Hold off oral medications. IV hydralazine as needed for hypertension. (4) DVT prophylaxis Current Visit: Yes Status: Acute Assessment and Plan: Subcutaneous heparin. (5) Abnormal EKG Current Visit: Yes Status: Ruled-out Assessment and Plan: Initial EKG showed ST elevation in V1, V2, V3. Elevationst were very mild. No other reciprocal changes in any other leads. EKG was repeated the same changes. No previous cardiac hx Patient also had a few PVCs on telemetry at that time patient was having nausea and vomiting and she was in distress. Troponin repeated twice is negative. Cardiology was consulted. No active intervention at this point. Echo pending. Telemetry. (6) Hypoxia Current Visit: Yes Status: Acute Assessment and Plan: Patient was noted to be hypoxic with saturations in high 80s in the emergency department D-dimer was collected which was elevated. CT was done which was negative for pulmonary embolism. Hypoxia could be related to distress and abdominal distention. Abdominal decompression with NG tube. (7) Leucocytosis Current Visit: Yes Status: Acute Assessment and Plan: Etiology could be related to small bowel obstruction. Possibility of infection cannot be ruled out. Patient had been started on antibiotic by the surgery Continue to monitor. - Time Spent with Patient Total time spent is greater than 50% in coordination of care (as documented) at patient's floor/unit and/or counseling patient: Internal Medicine: Result - Labs CBC & Chem 7: 06/21/19 04:47 06/21/19 04:47 Labs: Short CBC 06/21/19 Range/Units 04:47 WBC 16.9 H (4.3-11.1) K/mcL Hgb 15.3 (11.5-15.4) g/dL Hct 46.1 H (35.3-44.9) % Plt Count 274 (140-400) K/mcL Neutrophils # 14.8 H (1.6-8.9) K/mcL BMP 06/20/19 06/21/19 15:59 04:47 Sodium 137 138 Potassium 3.9 3.8 Chloride 101 104 Carbon Dioxide 20 L 24 BUN 26 H 21 Creatinine 0.96 0.84 Glucose 168 H 140 H Calcium 10.8 H 9.5 Cardiac Enzymes 06/20/19 Range/Units 15:59 Troponin I < 0.03 (< 0.04) ng/mL - ABG Interpretation ABG results: PT/INR, D-dimer PT 10.7 Seconds (9.4-12.1) 06/20/19 09:58 D-Dimer 1475 ng/mLFEU (0-500) H 06/20/19 09:58 - Impressions Impressions Chest CTA 06/20/19 12:18 IMPRESSION: 1. No CTA evidence for acute pulmonary embolus. Otherwise, stable CT scan chest. D/ / Mirza Roman MD / Mirza Roman MD Interpreting Provider: Mirza Roman MD Abdomen/Pelvis CT 06/20/19 15:30 IMPRESSION: 1. Stable findings consistent with a mid to distal small bowel obstruction. Mildly distended fluid filled small bowel loops with transition distally. Mild infiltration of the mesenteric fat. No free air or significant interloop fluid collections. Trace pelvic ascites. 2. Otherwise stable CT of the abdomen and pelvis. D/ / 06/20/2019 16:13:20 Corey Khanna MD / Татьяна Clayton Interpreting Provider: Corey Khanna MD KUB X-Ray 06/21/19 07:00 IMPRESSION: Persistent dilated loops of small bowel in keeping with history of small bowel obstruction. D/ / Maty Faye MD / Maty Faye MD Interpreting Provider: Maty Faye MD Consult Discharge Plan - Plan Referrals: Juan Randall DO [Primary Care Provider] - ____ (2) Nausea and vomiting Qualifiers: Vomiting type: unspecified Vomiting Intractability: intractable Qualified Code(s): R11.2 - Nausea with vomiting, unspecified (3) Hypertension Qualifiers: Hypertension type: essential hypertension Qualified Code(s): I10 - Essential (primary) hypertension (7) Leucocytosis Qualifiers: Leukocytosis type: unspecified Qualified Code(s): D72.829 - Elevated white blood cell count, unspecified
[2019-06-21] MEDS: MetroNIDAZOLE 500 MG/100 ML 500 MG/100 ML BAG IVPB SCH ×3 (13:17→23:56)
[2019-06-21] MEDS: D5% in 0.9% NACL w KCl 20 MEQ/1,000 ML MLS IVC SCH (14:18)
[2019-06-21] MEDS ORDERED: Perflutren Lipid Microsphere 1.3 ML in 0.9 % Sodium Chloride 8.7 ML IVP ONE (16:37)
--- NOTE | 2019-06-21 17:35 | Acute Care Surgery Event Note ---
Date of Encounter: 06/21/19 Time of Encounter: 17:25 Pt complained recurrent CP. A STAT EKG was obtained. She is found to have a STEMI. Prior to cardiac cath, a discussion is had with the hospitalist in regard to pt's partial SBO. She is found to have dilated bowel with hypoactive BS this morning. A decision to place NGT is made d/t persistent nausea. It is understood that her cardiac emergency will most likely require cardiac stents and DAPT. Recommend immediate cardiac care as indicated. ACS will continue current observation and treatment of partial SBO.
[2019-06-21] MEDS ORDERED: Furosemide 40 MG/4 ML VIAL IVP ONE (17:48)
[2019-06-21] MEDS ORDERED: Iopamidol 125 ML INFUS..BTL ONE ×3 (17:54→19:11)
[2019-06-21] MEDS ORDERED: Heparin 1,000 UNITS/500 mL 500 ML ONE (17:54)
[2019-06-21] MEDS ORDERED: Nitroglycerin 1,000 MCG/10 ML VIAL IV ONE (17:54)
[2019-06-21] MEDS ORDERED: 0.9 % Sodium Chloride 1,000 ML ONE ×2 (17:54→18:29)
[2019-06-21] MEDS ORDERED: *HR* Heparin 10,000 UNIT/10 ML VIAL ONE (17:54)
--- NOTE | 2019-06-21 18:08 | Event Note ---
Date of Encounter: 06/21/19 Time of Encounter: 18:00 - Cardiology Event Note 83 YOF with hx of HTN presented to the ER with symptoms of abdominal pain, nausea and vomiting the night prior to presentation. Elevated WBC and a left shift found to have partial SBO on CT of the abdomen. EKG was found to show prominence of right precordials with minimal changes in high lateral leads. Troponins on arrival and 6 hours later negative. Patient was seen by cardiology today complained of periumbilical discomfort but no chest pain. This was partially relevied by NG tube according to documentaion and family. Patient around 3:30 complained of back pain and worsening SOB hence an EKG was obtained and a troponin. EKG shows more prominent ST elevations in V1-V3 and a troponin was found to be 30. Cathlab was activated but patient now continues to deny chest pain and has continued periumbilical pain. Surgery has cleared patient for dual antiplatelet therapy in anticipation of LHC as SBO non surgical. ECHO was obtained reveals apical HK. R/B/A of LHC d/w patient and family and they agree to proceed.
--- NOTE | 2019-06-21 18:26 | Event Note ---
Date of Encounter: 06/21/19 Time of Encounter: 17:00 Alerted by the nurse that the pt devloped back apin and is feeling worse. EKG was obtianed and troponins levels sent. EKG was concerning for ST elevations in V1, V2 ,V3 more pronounced as compared to yesterday. Troponin came out 30.41. Cardiolgoy was consulted stat and d/w Dr. Martin from [facility]. No surgical interventins are planned and it is ok from surgery point of view to proceed woth the cardiac cath. 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 Was given rectal aspirin and oral plavix 300 mg. Dispositin following the cath depends upon the intervetion. 2N vs ICU. D/w Dr. Arambula from ICU.
[2019-06-21] MEDS ORDERED: methylPREDNISolone 125 MG/2 ML VIAL ONE (18:29)
[2019-06-21] MEDS ORDERED: Tirofiban 12.5 MG/250ML 12.5 MG/250 ML BAG ONE (18:47)
--- NOTE | 2019-06-21 19:55 | Invasive Diagnostic Lab Proc ---
Name: Kellee Marrero Date of Study: 06/21/2019 Date: 1935 Ht: 66.9in Medical Record#: [id number] Age: 83 Wt: 277.78lb Gender: Female BSA: 2.32 Order #: [id number] BMI: 43.6 Physicians Procedure Physician: William Kaufman MD Referring MD: Referring MD: Staff Name Position Time In Myla Victor RT (R) Monitor 06:25 PM Nahomy De Santiagofer RT (R) Scrub 06:25 PM Maryuri Reynoso RN Toddler Caregiver 06:25 PM Bladimir Victorian RT (R) Scrub 06:49 PM Indications Indication Non-Stemi Procedures Performed Procedure CORONARY ARTERY ANGIO S&I PRQ CARD SKIP STENT W/ANGIO 1 VSL Pre-Procedure Checklist Informed consent is complete signed and on chart. H&P is on chart. ID band is on and ID verified with patient. Patient NPO for procedure The procedure was described for the patient and questions were answered. Blood Pressure: 168/81 ECG is on chart. Plan of Care Patient will tolerate the procedure without complications. Adequate level of comfort will be maintained. Hemodynamics will remain stable Patient will recover from procedure without complications. Respiratory function will be maintained. Cardiac rhythm will remain stable. Patient temperature will be maintained. Patient and/or family have verbalized understanding of the procedure. Patient Education Chief Complaint/Reason for Test: Cardiac Cath Developmental Category: Geriatric (65+ years) Developmentally Appropriate for Age: Yes Learning Barriers: None Education Needs: Procedure Education Method: Verbal Information Taught: Cardiac Cath Educational Evaluation: Able to repeat information Intravenous Access Time IV Size Location DC'd Fluid/Drip Rate Units RN 06:22 PM 18g 1 1/4" Patent On Arrival Lt Wrist 0.9NaCl Maryuri Reynoso RN 06:25 PM 20g 1 1/4" Patent On Arrival Rt Antecubital Maryuri Reynoso RN Allergies Iodinated Contrast Media - IV Dye Tmzibjy-Abt-Zkk Reductase Inhibitor Iodinated Contrast Media - Oral and Penicillins Levofloxacin Penicillin SULFA (sulfonamide) Contrast Media, Iodine Related PCN Iodinated Contrast- Oral and IV Dye Iodinated Contrast Media Vital Signs Time BP (mmHg) HR (bpm) O2 Sat. RR (bpm) LOC 06:35 PM / % 5 = Fully awake and oriented or at pre-proc level 06:35 PM / % 4 = Oriented but drowsy 06:50 PM / % 4 = Oriented but drowsy 07:05 PM / % 4 = Oriented but drowsy 06:36 PM 195 / 129 100 100 % 18 06:40 PM 186 / 115 96 100 % 15 06:45 PM 186 / 110 98 98 % 15 06:50 PM 185 / 110 102 99 % 16 06:52 PM 180 / 111 101 99 % 15 06:55 PM 183 / 106 94 98 % 15 07:00 PM 184 / 110 91 100 % 16 07:05 PM 186 / 103 92 98 % 18 07:10 PM 187 / 107 90 98 % 16 07:15 PM 187 / 108 89 100 % 16 07:20 PM 192 / 112 83 100 % 16 07:25 PM 193 / 101 91 100 % 16 07:30 PM 166 / 106 90 99 % Procedural Medications Time Medication Dose Units Method Given By 06:35 PM Oxygen 2 L/min Oxy Mask Maryuri Reynoso RN 06:36 PM Benadryl 50 mg Intravenous Maryuri Reynoso RN 06:36 PM Solumedrol 125 mg Intravenous Maryuri Reynoso RN 06:40 PM Lidocaine 2% 15 ml Subcutaneous William Kaufman MD 06:44 PM Heparin 5000 units Intravenous Maryuri Reynoso RN 06:49 PM Aggrastat Bolus: 62 ml Intravenous Maryuri Reynoso RN 06:49 PM Aggrastat 12.5mg/250ml 22.5 ml Intravenous Maryuri Reynoso RN 07:25 PM Nitroglycerin 400 mcg Intraarterial William Kaufman MD ASA Classification: CLASS II- Mild systemic disease (i.e. well-controlled diabetes, hypertension, asthma, cigarette smoking) Kimmie Score Preprocedure Postprocedure Activity 2- Moves 4 extremities sustained head lift Activity 2- Moves 4 extremities sustained head lift Circulation 2- SBP +/= 20 points of pre-anesthetic level Circulation 2- SBP +/= 20 points of pre-anesthetic level Consciousness 2- Awake and alert oriented x 3 Consciousness 2- Awake and alert oriented x 3 O2 Saturation 2- Able to maintain O2 satruation of 92% on room air O2 Saturation 2- Able to maintain O2 satruation of 92% on room air Respiratory 2- Able to deep breathe and cough well Respiratory 2- Able to deep breathe and cough well Total Score 10 Total Score 10 Contrast Agent: Isovue Diagnostic Contrast: 225 ml Total Contrast: 225 ml Fluoro Dose: 130 mGy Activated Clotting Time Time Seconds to Clot 06:43 PM 144 Procedure Log Time Note Enter By 06:25 PM Myla Victor RT (R) Position: Monitor Time in: 18:25 twilson 06:25 PM Candy De Santiago RT (R) Position: Scrub Time in: 18:25 twilson 06:25 PM Maryuri Reynoso RN Position: Toddler Caregiver Time in: 18:25 twilson 06:25 PM Patient charges- Angio tray pack, Navilyst 3mm J, Pulse Oximetry and ACIST tubing and transducer twilson 06:34 PM CathStat 06:34 PM Vitals capture started with the following parameters, Patient=Adult, Interval=5 min, Initial Eenogmfz=349 mmHg, Deflation Rate=3 mmHg, Cuff placed on Right Arm 06:34 PM Recorded ECG: IP=984 Condition=Condition 1 06:34 PM Pt arrived to bobcat driver/labor 2 at 18:34 twilson 06:34 PM Physician arrived 18:34 twilson :34 PM Meet and greet completed twilson :34 PM Sign in performed according to hospital policy. Informed consent was obtained. twilson 06:35 PM Time: 18:35 Oxygen on at 2 L/min per Oxy Mask by Maryuri Reynoso RN twilson 06:35 PM Patient with no chest pain at this time. twilson 06:35 PM Time: 18:35 Patient comfortable and pain free: Yes twilson :35 PM Time: 18:35LOC: 5 = Fully awake and oriented or at pre-proc level twilson :35 PM ASA Class CLASS II- Mild systemic disease (i.e. well-controlled diabetes, hypertension, asthma, cigarette smoking) twilson 06:35 PM Procedure start 18:35 twilson 06:36 PM Hair removed from procedure site in procedure lab using clippers. Bilateral groin prepped with Chloraprep by Candy De Santiago RT (R), then patient was draped. Skin intact. twilson :36 PM KX=568 bpm, XAAI=485/129 mmhg, RtD6=773.0 %, Resp=18 B/min 06:36 PM Time out was performed according to hospital policy. Conscious sedation and anesthesia was achieved (see medication log with in this report above) twilson 06:36 PM Time: 18:36 Benadryl 50 mg Intravenous Given by Maryuri Reynoso RN twilson 06:37 PM Time: 18:36 Solumedrol 125 mg Intravenous Given by Maryuri Reynoso RN twilson 06:37 PM Drawing ACT. twilson 06:38 PM Pressure channel 1 zeroed. 06:39 PM NIBP STAT measurement started. 06:40 PM Time: 18:40 15 ml Lidocaine 2% to right groin Subcutaneous Given by William Kaufman MD twilson 06:40 PM Micro-Introducer Kit utilized for sheath placement twilson 06:40 PM HR=96 bpm, WQFW=157/115 mmhg, XzH2=939.0 %, Resp=15 B/min 06:40 PM Access obtained by percutaneous puncture. 6Fr 10cm Terumo Lacarne sheath placed in right Femoral artery. [id number] twilson 06:40 PM 5Fr FL 4 catheter inserted over the wire DNC twilson 06:41 PM Wire removed twilson 06:41 PM Recorded Pressure: Ao, HR=98, Condition=Condition 1 (Aorta) Ao 169/97/128 06:42 PM ACT running. twilson 06:42 PM LCA angiography performed in multiple views. twilson 06:42 PM Recorded Pressure: Ao, HR=78, Condition=Condition 1 (Aorta) Ao 145/84/110 06:43 PM Wire reinserted. twilson 06:43 PM Catheter removed twilson 06:43 PM 5Fr FR 4 catheter inserted over the wire DNC twilson 06:43 PM At 18:43 the ACT was 144 seconds. twilson 06:44 PM Time: 18:44 Heparin 5000 units Intravenous Given by Maryuri Reynoso RN twilson 06:45 PM Recorded Pressure: Ao, TS=475, Condition=Condition 1 (Aorta) Ao 143/94/117 06:45 PM Wire removed twilson 06:45 PM RCA angiography performed in multiple views. twilson 06:45 PM Recorded Pressure: Ao, HR=98, Condition=Condition 1 (Aorta) Ao 137/90/112 06:45 PM HR=98 bpm, SCIW=633/110 mmhg, SpO2=98.0 %, Resp=15 B/min 06:46 PM Wire reinserted. twilson 06:46 PM Catheter removed twilson 06:47 PM Inflation device was opened. twilson 06:47 PM 6Fr XB LAD 3.5 Cordis guide catheter was used to cannulate the PCI vessel successfully. reused? No twilson 06:48 PM Wire removed twilson 06:48 PM Recorded Pressure: Ao, ZA=699, Condition=Condition 1 (Aorta) Ao 160/92/121 06:48 PM PCI Status Urgent twilson 06:49 PM Cordell Victor RT (R) Position: Scrub Time in: 18:49 to relieve Candy De Santiago RT (R) twilson 06:49 PM Time: 18:49 Aggrastat Bolus: 62 ml Intravenous Given by Maryuri Reynoso RN Deleon pump twilson 06:49 PM Time: 18:49 Aggrastat 12.5mg/250ml 22.5 ml Intravenous Given by Maryuri Reynoso RN Deleon pump twilson 06:50 PM PCI lesion in Proximal LAD. Pre Stenosis: 99 Pre ALISSON Flow: 1: Slow Penetration without Perfusion twilson 06:50 PM Time: 18:35 Patient comfortable and pain free: Yes twilson 06:50 PM Time: 18:35LOC: 4 = Oriented but drowsy twilson 06:50 PM NR=892 bpm, BTYM=770/110 mmhg, SpO2=99.0 %, Resp=16 B/min 06:50 PM Coronary Dominance: right twilson 06:50 PM Proximal Left Anterior Descending Coronary Artery with 99% stenosis. If graft is supplying this territory, 0 % stenosis. twilson 06:51 PM .014 [employer] [place] 190cm guide wire across target lesion- successful. reused? No twilson 06:51 PM NIBP STAT measurement started. 06:52 PM II=693 bpm, VYNB=100/111 mmhg, SpO2=99.0 %, Resp=15 B/min 06:52 PM Bed management called. Patient will go to ICU 5. twilson 06:53 PM Guide wire removed intact. twilson 06:53 PM .014 Player Services Representative 50 190cm guide wire across target lesion- successful. reused? No twilson 06:55 PM HR=94 bpm, QKIU=521/106 mmhg, SpO2=98.0 %, Resp=15 B/min 06:58 PM 2.0 mm x 20 mm Emerge Monorail balloon across target lesion- successful. reused? No twilson 07:00 PM HR=91 bpm, UVOT=384/110 mmhg, IwJ6=343.0 %, Resp=16 B/min 07:01 PM Recorded Pressure: Ao, HR=95, Condition=Condition 1 (Aorta) Ao 148/93/119 07:01 PM Balloon catheter removed intact. twilson 07:02 PM 1.5 mm x 15 mm Emerge Monorail Push balloon across target lesion- successful. reused? No twilson 07:03 PM Balloon catheter removed intact. twilson 07:03 PM 1.2 mm x 12 mm Retail Product Demo Specialist Monorail balloon across target lesion- successful. reused? No twilson 07:05 PM Time: 18:50LOC: 4 = Oriented but drowsy twilson 07:05 PM Time: 18:50 Patient comfortable and pain free: Yes twilson 07:05 PM HR=92 bpm, RTCS=123/103 mmhg, SpO2=98.0 %, Resp=18 B/min 07:06 PM Balloon inflated @ 6 karla for 9 seconds twilson 07:06 PM Recorded Pressure: Ao, HR=90, Condition=Condition 1 (Aorta) Ao 148/91/118 07:06 PM Balloon inflated @ 8 karla for 9 seconds twilson 07:06 PM Balloon inflated @ 6 karla for 11 seconds twilson 07:07 PM Balloon inflated @ 6 karla for 6 seconds twilson 07:07 PM Recorded Pressure: Ao, HR=90, Condition=Condition 1 (Aorta) Ao 154/83/113 07:07 PM Balloon catheter removed intact. twilson 07:07 PM 1.5 mm x 15 mm Emerge Monorail Push balloon across target lesion- successful. reused? yes twilson 07:08 PM Balloon inflated @ 6 karla for 6 seconds twilson 07:09 PM Balloon inflated @ 6 karla for 6 seconds twilson 07:10 PM Balloon catheter removed intact. twilson 07:10 PM HR=90 bpm, MIXH=566/107 mmhg, SpO2=98.0 %, Resp=16 B/min 07:11 PM 2.0 mm x 20 mm Emerge Monorail balloon across target lesion- successful. reused? yes twilson 07:12 PM Balloon inflated @ 6 karla for 15 seconds twilson 07:13 PM Balloon catheter removed intact. twilson 07:14 PM Recorded Pressure: Ao, HR=88, Condition=Condition 1 (Aorta) Ao 159/85/116 07:15 PM 2.25 mm x 20 mm Emerge Monorail balloon across target lesion- successful. reused? No twilson 07:15 PM HR=89 bpm, APCF=740/108 mmhg, RsS9=678.0 %, Resp=16 B/min 07:17 PM Balloon inflated @ 8 karla for 13 seconds twilson 07:17 PM Balloon catheter removed intact. twilson 07:19 PM 2.75mm x 24mm Synergy drug-eluting stent across target lesion- successful Lot #[id number] tw 07:20 PM Time: 19:05 Patient comfortable and pain free: Yes tw:20 PM Time: 19:05LOC: 4 = Oriented but drowsy twilson 07:20 PM Stent deployed @ 9 karla for 12 seconds twilson 07:20 PM HR=83 bpm, EZPO=335/112 mmhg, XqA7=152.0 %, Resp=16 B/min 07:21 PM Stent balloon reinflated @ 13 karla for 10 seconds twilson 07:22 PM Stent delivery system removed intact. twilson 07:22 PM Recorded Pressure: Ao, HR=85, Condition=Condition 1 (Aorta) Ao 169/80/116 07:22 PM Guide wire removed intact. twilson 07:22 PM Wire reinserted. twilson 07:22 PM Guide catheter removed intact. twilson 07:23 PM 5Fr Pigtail catheter inserted over the wire DNC twilson 07:24 PM Unable to cross valve. twilson 07:24 PM Catheter removed twilson 07:24 PM Bolus angiogram of right Femoral complete: 2 ml/sec for a total of 4 mls twilson 07:25 PM HR=91 bpm, DATO=082/101 mmhg, BqJ5=760.0 %, Resp=16 B/min 07:25 PM Time: 19:25 Nitroglycerin 400 mcg Intraarterial Given by William Kaufman MD twilson 07: PM Procedure completed at 19:26 06/21/2019 twilson 07: PM Did you address ALISSON flow and Dominance? YesCoronary Dominance: right twilson : PM Isovue 370 - 125ml,3 Bottle(s) used. twilson 07: PM Recorded ECG: HR=87 Condition=Condition 1 07:27 PM Arterial sheath pulled, Angio-seal closure device used and was Successful S/N. twilson : PM Estimated Blood Loss: less than 20cc twilson 07: PM Post ECG NSR twilson 07: PM Post Blood Pressure 193/101 tw 07: PM 19:27 Post Pulses Bilateral DP & PT 1+ tw: PM 19:27 Post Pulses Bilateral radial 2+ tw: PM Information taught Cardiac Cath and Angioseal tw: PM Education needs Procedure, Plan of Care, and Responsibilities of Patient in Care tw: PM Learning barriers :None : PM Education Methods Verbal : PM Education evaluation Able to repeat information : PM Site status No bleeding/ No Hematoma - Rt Groin as reported by Cordell Victor RT (R) at 19:29 tw:29 PM Opsite applied tw: PM Patient with 1500 cc urine in maguire. tw 07:30 PM Plavix given on 3A before patient arrived. twilson 07:30 PM Family placed in consult room. tw 07:30 PM HR=90 bpm, VYWK=752/106 mmhg, SpO2=99.0 % 07:32 PM Sign out completed: Radiation Dose 1182.02 mGy, 130 Gy/cm2 Fluoro Time: 15.7 Isovue 370 - 200ml contrast 225 ml given by William Kaufman MD. Complications: None. 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 Sedation minutes 56. Cardiac Rehab Consult needed: Yes. Confirmed administered medications: Yes tw 07:35 PM Report given to Yeyo MARCELINO Pt taken to ICU Room #5. 19:33 twilson 07:37 PM Emptied 1800cc urine out of maguire. twilson 07:40 PM Lesion found in Mid RCA. Pre Stenosis: 55 Pre ALISSON Flow: twilson 07:40 PM Lesion found in Mid LAD. Pre Stenosis: 70 Pre LAISSON Flow: twilson 07:40 PM Lesion found in Distal Circumflex. Pre Stenosis: 70 Pre ALISSON Flow: twilson 07:41 PM Lesion found in 1st Marginal. Pre Stenosis: 50 Pre ALISSON Flow: twilson 07:41 PM Lesion found in Right PDA. Pre Stenosis: 65 Pre ALISSON Flow: twilson 07:41 PM Right Coronary, Right Posterior Descending Arteries with Right Posterolateral and Acute Marginal branches with 65 % stenosis. If graft is supplying this area, 0 % stenosis twilson 07:41 PM Circumflex, Obtuse Marginal, Left Posterior Descending, and Left Posterolateral Coronary Arteries with 70 % stenosis. If graft is supplying this area, 0 % stenosis twilson 07:41 PM Mid/Distal Left Anterior Descending Coronary Artery and diagonal branches with 70% stenosis. If graft is supplying this area, 0 % stenosis twilson 07:41 PM Delay to floor No twilson 07:41 PM Patient out of room: 19:41 twilson Complications Complication None Hemodynamics Pressures Site Systolic/A Wave Diastolic/V Wave Mean AO 169 97 128 AO 145 84 110 AO 143 94 117 AO 137 90 112 AO 160 92 121 AO 148 93 119 AO 148 91 118 AO 154 83 113 AO 159 85 116 AO 169 80 116 Post Procedure Information Blood Pressure: 193/101 mmHg Rhythm: NSR Post procedural instructions were given Closure Device Time Device Success/Fail 06/21/2019 7:32:00 PM Mechanical Compression Successful Site Checks Time Location Status Staff Sheath In? Note 07:29 PM Rt Groin No bleeding/ No Hematoma Cordell Victor RT (R) Pulses Time Site Pre-Procedure Post-Procedure Note 06/21/2019 6:22:00 PM Bilateral DP & PT 1+ 06/21/2019 6:23:00 PM Bilateral radial 2+ 7:27:00 PM Bilateral DP & PT 1+ 7:27:00 PM Bilateral radial 2+ Updated by Myla Victor RT (R) on 06/21/2019 7:47:03 PM electronically signed on 06/21/2019 7:47:57 PM with status of Final
[2019-06-21] MEDS ORDERED: Tirofiban 12.5 MG/250ML 12.5 MG/250 ML BAG IVC SCH (20:00)
[2019-06-22 04:03] LABS: Basophils % 0.1 %; Hematocrit 46.6 % (35.3-44.9); Hemoglobin 15.4 g/dL (11.5-15.4); Immature Granulocytes % 0.5 % (0-4); Lymphocytes # 0.5 K/mcL (0.6-4.6); Lymphocytes % 5.1 %; Mean Corpuscular Hemoglobin 32.3 pg (28.0-33.3); Mean Corpuscular Volume 97.7 fL (83.0-100.0); Mean Platelet Volume 10.6 fL (9.4-12.4); Monocytes # 0.5 K/mcL (0.0-1.3); Monocytes % 4.6 %; Neutrophils # 8.8 K/mcL (1.6-8.9); Platelet Count 273 K/mcL (140-400); Red Blood Count 4.77 M/mcL (3.82-4.97); Red Cell Distribution Width 13.1 % (11.5-14.5); Segmented Neutrophils % 89.7 %; White Blood Count 9.8 K/mcL (4.3-11.1)
[2019-06-22 04:26] LABS: BUN/Creatinine Ratio 23 (6-26); Blood Urea Nitrogen 19 mg/dL (8-23); Calcium 8.7 mg/dL (8.6-10.3); Carbon Dioxide 23 mEq/L (23-29); Chloride 104 mEq/L (98-107); Glucose 157 mg/dL (70-105); Magnesium 1.8 mg/dL (1.6-2.6); Osmolality,Calculated 294 (280-300); Potassium 3.5 mEq/L (3.5-5.1); Sodium 139 mEq/L (136-145); eGFR For African Americans > 60 (> 60); eGFR For Non-African Americans > 60 (> 60)
[2019-06-22] MEDS: Pantoprazole 40 MG VIAL IVP SCH (05:39)
[2019-06-22] MEDS: *HR* Heparin 5,000 UNIT/ML VIAL SQ SCH ×2 (05:39→17:32)
[2019-06-22] MEDS: MetroNIDAZOLE 500 MG/100 ML 500 MG/100 ML BAG IVPB SCH (05:39)
[2019-06-22] MEDS: D5% in 0.9% NACL w KCl 20 MEQ/1,000 ML MLS IVC SCH ×2 (06:55→14:16)
--- NOTE | 2019-06-22 07:56 | AcuteCareSurgery Progress Note ---
Date of Encounter: 06/22/19 Time of Encounter: 07:50 - Assessment and Plan (1) Small bowel obstruction Current Visit: Yes Status: Acute Partial small bowel obstruction appears to have clinically resolved. Discontinue nasogastric tube. Start volume restricted clear liquids. Start aspirin and Plavix. Subjective Narrative: The patient is seen and evaluated on morning rounds with the acute care surgery team. Nasogastric tube drainage is minimal. I reviewed the CT scan as well as the abdominal film from yesterday. The patient does not appear to have a high- grade bowel obstruction. Since the nasogastric tube drainage is very low and she has normal bowel sounds I would recommend removing the nasogastric tube. Start volume restricted clear liquids. She may start her aspirin and Plavix Objective Vital Signs - Last 8 Hours Temp Pulse Resp BP Pulse Ox 06/22/19 07:33 99 17 170/96 94 06/22/19 06:00 98 16 142/88 92 06/22/19 05:00 100 18 154/89 97 06/22/19 04:00 100 20 151/86 91 06/22/19 03:00 98.2 F 100 18 150/92 95 06/22/19 02:00 96 20 137/80 93 06/22/19 01:00 97 20 146/84 92 06/22/19 00:00 99.0 F 95 18 141/84 93 Intake and Output 06/21/19 06/21/19 06/22/19 15:59 23:59 07:59 Intake Total 1100 / 1200 100 / 1200 1450 / 1450 Output Total 600 / 1550 950 / 950 Balance 1100 / -350 -500 / -350 500 / 500 Intake: IV Fluids 1100 / 1200 100 / 1200 1450 / 1450 KCl 20mEq in D5-0.9 NaCl 20 meq 1000 / 1000 In 1,000 ml @ 100 mls/hr IVC . Q10H [facility] Rx#:[id number] Lactated Ringers 1,000 ML @ 100 1000 / 1000 mls/hr IVC .Q10H [facility] Rx#: [id number] Aggrastat 12.5 MG/250 ML 12.5 250 / 250 mg In 250 ml @ 0.15 MCG/KG/MIN 22.714 mls/hr IVC .Q11H1M [facility] Rx#:[id number] Flagyl Premix 500 MG/100 ML 500 100 / 200 100 / 200 200 / 200 mg In 100 ml @ 100 mls/hr IVPB Q6HR [facility] Rx#:[id number] Output: Gastric Tube Lavage Amount 0 / 0 Right Nare 0 / 0 Catheter 600 / 1300 950 / 950 Gastric Drainage 0 / 0 Other: Meal npo Percent of Meal Consumed 0% Blood Glucose* 148 124 191 - General physical appearance well developed, well nourished, no pain - Respiratory normal expansion, normal respiratory effort, clear to auscultation - Cardiovascular Cardiovascular exam: Present: RRR, no murmurs/rubs/gallops - Abdomen Abdomen: Present: bowel sounds present, soft, non tender - Neurologic normal coordination, normal sensation - Psychiatric oriented to time, oriented to person, oriented to place, speech is normal, memory intact - Labs 06/22/19 03:37 06/22/19 03:37 Diabetes panel 06/22/19 Range/Units 03:37 Sodium 139 (136-145) mEq/L Potassium 3.5 (3.5-5.1) mEq/L Chloride 104 (98-107) mEq/L Carbon Dioxide 23 (23-29) mEq/L BUN 19 (8-23) mg/dL Creatinine 0.81 (0.60-1.20) mg/dL Glucose 157 H (70-105) mg/dL Calcium 8.7 (8.6-10.3) mg/dL Calcium panel 06/22/19 Range/Units 03:37 Calcium 8.7 (8.6-10.3) mg/dL Pituitary panel 06/22/19 Range/Units 03:37 Sodium 139 (136-145) mEq/L Potassium 3.5 (3.5-5.1) mEq/L Chloride 104 (98-107) mEq/L Carbon Dioxide 23 (23-29) mEq/L BUN 19 (8-23) mg/dL Creatinine 0.81 (0.60-1.20) mg/dL Glucose 157 H (70-105) mg/dL Calcium 8.7 (8.6-10.3) mg/dL Adrenal panel 06/22/19 Range/Units 03:37 Sodium 139 (136-145) mEq/L Potassium 3.5 (3.5-5.1) mEq/L Chloride 104 (98-107) mEq/L Carbon Dioxide 23 (23-29) mEq/L BUN 19 (8-23) mg/dL Creatinine 0.81 (0.60-1.20) mg/dL Glucose 157 H (70-105) mg/dL Calcium 8.7 (8.6-10.3) mg/dL Consult Discharge Plan - Plan Referrals: Juan Randall DO [Primary Care Provider] -
--- NOTE | 2019-06-22 08:44 | Electrocardiograph Report ---
[address] [place] [address] Test Date: 2019-06-22 Pat Name: Kellee Marrero Department: 109 Room: [facility] Gender: F Facilities Management Executive: : 1935 Requested By: William Kaufman Order Number: [id number] Reading MD: Edward Jones Measurements Intervals [place] Rate: 97 P: 55 MD: 155 QRS: -3 QRSD: 88 T: 75 QT: 337 QTc: 392 Interpretive Statements SINUS RHYTHM WITH FREQUENT VENTRICULAR PREMATURE COMPLEXES IN A BIGEMINAL PATTERN LEFT ATRIAL ENLARGEMENT ANTEROSEPTAL MYOCARDIAL INFARCTION, OF INDETERMINATE AGE Electronically Signed On 06-22-2019 8:42:34 EDT by Edward Jones
[2019-06-22] MEDS ORDERED: Aspirin 81 MG TAB.CHEW PO SCH ×2 (09:00→18:00)
[2019-06-22] MEDS ORDERED: Metoprolol XL (24 HR) Succ 25 MG TAB.ER.24H PO SCH (09:00)
[2019-06-22] MEDS: levoFLOXacin 750 MG/150 ML 750 MG/150 ML BAG IVPB SCH (09:02)
--- NOTE | 2019-06-22 09:12 | Internal Med Progress Note ---
Hospitalist Progress Note - Encounter Date of Encounter: 06/22/19 Time of Encounter: 08:00 - Subjective Interval History: Patient came to the ICU last night after left heart catherization for STEMI. She had PCI and stent to her LAD and was transferred to the ICU last night. Since then, she has done well has had no further chest pain or shortness of shaheen ath. Regarding her abdomen, she has no abdominal pain, nausea, or vomiting. She has not passed flatus yet and/or had a bowel movement. Dr. Santos came to the bedside as I was finishing my assessment and exam. We discussed the case together, and he is going to pull the NG tube. He will allow us to give her her cardiac meds by mouth as necessary. Patient will be transitioned out of ICU to telemetry floor for ongoing care and management. - Exam Vitals: Temp Pulse Resp BP Pulse Ox 97.8 F 101 20 132/69 98 06/22/19 07:50 06/22/19 08:22 06/22/19 08:22 06/22/19 08:22 06/22/19 08:22 Exam: General: NAD, CP free HEENT: NG in olace; dry mucosa, neck supple Chest: CTA B, NO WRR. RRR, no MTR. Abdomen: soft, minimally distended, + hypoactive BS Ext: No calf pain; full ROM, equal pulses Neuro: A&Ox3, no focal deficits. Skin: warm and dry - Assessment and Plan (1) STEMI (ST elevation myocardial infarction) Current Visit: Yes Status: Acute Assessment and Plan: 1. S/P PCI/stent last night; patient doing well with no further symptoms. 2. ASA/Plavix and cardiac meds as appropriate. 3. Cardiology following. 4. Transfer out of ICU to cardiac unit. (2) Small bowel obstruction Current Visit: Yes Status: Acute Assessment and Plan: 1. Discussed with Dr. Santos this morning. 2. NG tube to be pulled per Dr. Santos, judicious liquid diet per Dr. Santos. 3. Surgery following. (3) Hypertension Current Visit: Yes Status: Chronic Assessment and Plan: 1. Resume home meds as appropriate. 2. Hydralazine for breakthrough HTN. DVT Prophylaxis: Heparin SQ - Time Spent with Patient Total time spent is greater than 50% in coordination of care (as documented) at patient's floor/unit and/or counseling patient: 25 - 35 minutes Plan of Care Discussed with: other (patient, MDR team, Dr. Santos) Internal Medicine: Result - Labs CBC & Chem 7: 06/22/19 03:37 06/22/19 03:37 Labs: Short CBC 06/22/19 Range/Units 03:37 WBC 9.8 (4.3-11.1) K/mcL Hgb 15.4 (11.5-15.4) g/dL Hct 46.6 H (35.3-44.9) % Plt Count 273 (140-400) K/mcL Neutrophils # 8.8 (1.6-8.9) K/mcL BMP 06/22/19 03:37 Sodium 139 Potassium 3.5 Chloride 104 Carbon Dioxide 23 BUN 19 Creatinine 0.81 Glucose 157 H Calcium 8.7 Cardiac Enzymes 06/21/19 06/21/19 Range/Units 16:00 17:12 Troponin I 30.41 H* 32.90 H* (< 0.04) ng/mL - ABG Interpretation ABG results: PT/INR, D-dimer PT 10.7 Seconds (9.4-12.1) 06/20/19 09:58 D-Dimer 1475 ng/mLFEU (0-500) H 06/20/19 09:58 - Impressions Impressions Abdomen/Pelvis CT 06/20/19 15:30 IMPRESSION: 1. Stable findings consistent with a mid to distal small bowel obstruction. Mildly distended fluid filled small bowel loops with transition distally. Mild infiltration of the mesenteric fat. No free air or significant interloop fluid collections. Trace pelvic ascites. 2. Otherwise stable CT of the abdomen and pelvis. D/ / 06/20/2019 16:13:20 Corey Khanna MD / Татьяна Clayton Interpreting Provider: Corey Khanna MD Consult Discharge Plan - Plan Referrals: Juan Randall DO [Primary Care Provider] - (1) STEMI (ST elevation myocardial infarction) Qualifiers: Involved coronary artery: LAD coronary artery Qualified Code(s): I21.02 - ST elevation (STEMI) myocardial infarction involving left anterior descending coronary artery (3) Hypertension Qualifiers: Hypertension type: essential hypertension Qualified Code(s): I10 - Essential (primary) hypertension
--- NOTE | 2019-06-22 11:22 | Cardiology Progress Note ---
<Annalee Duran - Last Filed: 06/22/19 12:02> Date of Encounter: 06/22/19 Time of Encounter: 09:15 Assessment and Plan (1) NSTEMI (non-ST elevated myocardial infarction) Current Visit: Yes Status: Acute Tropinins negative x2 yesterday without CP or significant EKG changes. Yesterday evening patient reportedly became increasingly SOB, repeat EKG with ST elevations and troponin 30.41. Patient admits today to feelings of left arm/neck/throat discomfort for several years. LHC 06/21/19 preliminary report: successful PCTA/SKIP to prox LAD. Final report pending. Right femoral access site clean, dry and intact- bandage removed. Echo 06/21/19: EF 40-45%, final report pending. Will plan for limited echo tomorrow. Will need 1 year uninterrupted DAPT (ASA & Plavix). Continue BB. Cardiac rehab ordered. Pt states intolerance to statins in the past- will call home pharmacy to obtain more information. (2) Hypertension Current Visit: Yes Status: Chronic Blood pressure above goal today. Restarted home Toprol XL and added Lisinopril 2.5mg. Will titrate as needed for blood pressure. Qualifiers: Hypertension type: essential hypertension Qualified Code(s): I10 - Essential (primary) hypertension Discussion w patient/family: The assessment and plan as outlined above was discussed with the patient and/or family members who expressed understanding and agreement. All questions were answered. Thank you for involving us in the care of your patient. Please call with any questions. Will discuss the above assessment and plan with Dr. Kaufman and make changes as necessary. Subjective Principal diagnosis: NSTEMI Interval history: Doing well this morning, no complaints, denies CP. Objective Vital Signs, Last 4 Hours Temp Pulse Resp BP Pulse Ox 06/22/19 10:36 88 15 105/61 97 06/22/19 09:24 105 20 127/79 95 06/22/19 08:22 101 20 132/69 98 06/22/19 07:50 97.8 F 06/22/19 07:33 99 17 170/96 94 Musculoskeletal: Other (Right femoral access bandage removed, site is clean, dry and intact.) Results 06/22/19 03:37 06/22/19 03:37 Lab Results 06/21/19 06/21/19 06/22/19 16:00 17:12 03:37 WBC 9.8 Hgb 15.4 Hct 46.6 H Plt Count 273 Sodium Potassium Chloride Carbon Dioxide BUN Creatinine Glucose Calcium Magnesium Troponin I 30.41 H* 32.90 H* 06/22/19 03:37 WBC Hgb Hct Plt Count Sodium 139 Potassium 3.5 Chloride 104 Carbon Dioxide 23 BUN 19 Creatinine 0.81 Glucose 157 H Calcium 8.7 Magnesium 1.8 Troponin I Consult Discharge Plan - Plan Referrals: Juan Randall DO [Primary Care Provider] - <William Kaufman - Last Filed: 06/22/19 14:57> Date of Encounter: 06/22/19 Assessment and Plan (1) NSTEMI (non-ST elevated myocardial infarction) Current Visit: Yes Status: Acute Tropinins negative x2 yesterday without CP or significant EKG changes. Yesterday evening patient reportedly became increasingly SOB, repeat EKG with ST elevations and troponin 30.41. Patient admits today to feelings of left arm/neck/throat discomfort for several years. LHC 06/21/19 preliminary report: successful PCTA/SKIP to prox LAD. Final report pending. Right femoral access site clean, dry and intact- bandage removed. Echo 06/21/19: EF 40-45%, final report pending. Will plan for limited echo tomorrow. Will need 1 year uninterrupted DAPT (ASA & Plavix). Continue BB. Cardiac rehab ordered. Pt states intolerance to statins in the past- will call home pharmacy to obtain more information. I have personally performed a face to face evaluation on this patient. I have reviewed and agree with the care plan. History and Exam by me shows: Significant proven symptoms post-PCI of proximal LAD and significant improvement in shortness of breath after diuresing 2 L within first hour after Lasix administration. Continue dual antiplatelet therapy consider limited echocardiogram 48 hours to evaluate ejection fraction. Patient does have severe disease in the circumflex territory and mid LAD however patient continues to be asymptomatic continue medical management. Discussion w patient/family: The assessment and plan as outlined above was discussed with the patient and/or family members who expressed understanding and agreement. All questions were answered. Thank you for involving us in the care of your patient. Please call with any questions. Objective Vital Signs, Last 4 Hours Temp Pulse Resp BP Pulse Ox 06/22/19 11:53 83 16 133/82 95 06/22/19 11:50 98.4 F Results 06/22/19 03:37 06/22/19 03:37 Lab Results 06/21/19 06/21/19 06/22/19 16:00 17:12 03:37 WBC 9.8 Hgb 15.4 Hct 46.6 H Plt Count 273 Sodium Potassium Chloride Carbon Dioxide BUN Creatinine Glucose Calcium Magnesium Troponin I 30.41 H* 32.90 H* 06/22/19 03:37 WBC Hgb Hct Plt Count Sodium 139 Potassium 3.5 Chloride 104 Carbon Dioxide 23 BUN 19 Creatinine 0.81 Glucose 157 H Calcium 8.7 Magnesium 1.8 Troponin I
[2019-06-22] MEDS ORDERED: D5% in 0.9% NACL w KCl 20 MEQ/1,000 ML MLS IVC SCH (11:23)
--- NOTE | 2019-06-22 11:37 | Electrocardiograph Report ---
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
--- NOTE | 2019-06-22 11:38 | Electrocardiograph Report ---
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
--- NOTE | 2019-06-22 11:39 | Electrocardiograph Report ---
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
[2019-06-22] MEDS ORDERED: Nitroglycerin 0.4 MG TAB.SUBL SL PRN (13:42)
[2019-06-22] MEDS ORDERED: Naloxone 0.4 MG/ML INJ IVP PRN (13:42)
[2019-06-22] MEDS ORDERED: Ondansetron 4 MG/2 ML VIAL IVP PRN (13:42)
--- NOTE | 2019-06-22 14:34 | Event Note ---
Date of Encounter: 06/22/19 Time of Encounter: 14:32 - Cardiology Event Note Per patient's home pharmacy, patient has been on Simvastatin & Lovastatin in the past. Will start Pravastatin and see how patient tolerates.
[2019-06-22] MEDS ORDERED: Acetaminophen IV 500 MG/50 ML INFUS..BTL IVPB ONE (22:57)
[2019-06-23] MEDS ORDERED: Ondansetron 4 MG/2 ML VIAL IVP PRN (03:23)
[2019-06-23] MEDS: D5% in 0.9% NACL w KCl 20 MEQ/1,000 ML MLS IVC SCH ×2 (03:34→10:56)
[2019-06-23 04:20] LABS: Basophils % 0.2 %; Hematocrit 47.7 % (35.3-44.9); Hemoglobin 15.3 g/dL (11.5-15.4); Immature Granulocytes % 0.4 % (0-4); Lymphocytes # 0.8 K/mcL (0.6-4.6); Lymphocytes % 6.8 %; Mean Corpuscular HGB Conc 32.1 g/dL (31.6-35.5); Mean Corpuscular Hemoglobin 31.5 pg (28.0-33.3); Mean Corpuscular Volume 98.4 fL (83.0-100.0); Mean Platelet Volume 10.7 fL (9.4-12.4); Monocytes # 1.2 K/mcL (0.0-1.3); Monocytes % 10.6 %; Neutrophils # 9.2 K/mcL (1.6-8.9); Platelet Count 257 K/mcL (140-400); Red Blood Count 4.85 M/mcL (3.82-4.97); Red Cell Distribution Width 13.2 % (11.5-14.5); White Blood Count 11.2 K/mcL (4.3-11.1)
[2019-06-23 04:39] LABS: BUN/Creatinine Ratio 25 (6-26); Blood Urea Nitrogen 20 mg/dL (8-23); Calcium 8.9 mg/dL (8.6-10.3); Carbon Dioxide 23 mEq/L (23-29); Chloride 109 mEq/L (98-107); Glucose 162 mg/dL (70-105); Magnesium 1.9 mg/dL (1.6-2.6); Osmolality,Calculated 298 (280-300); Potassium 3.7 mEq/L (3.5-5.1); Sodium 141 mEq/L (136-145); eGFR For African Americans > 60 (> 60); eGFR For Non-African Americans > 60 (> 60)
[2019-06-23] MEDS: *HR* Heparin 5,000 UNIT/ML VIAL SQ SCH ×2 (05:54→17:27)
[2019-06-23] MEDS: Aspirin 81 MG TAB.CHEW PO SCH (07:37)
--- NOTE | 2019-06-23 08:17 | AcuteCareSurgery Progress Note ---
Date of Encounter: 06/23/19 Time of Encounter: 08:00 - Assessment and Plan (1) Small bowel obstruction Current Visit: Yes Status: Acute Partial small bowel obstruction appears to have clinically resolved. Discontinue nasogastric tube. Start volume restricted clear liquids. Start aspirin and Plavix. 06/23/2019. The patient is seen and evaluated on morning rounds with the acute care surgery team. The nasogastric tube was removed yesterday. She is not reported any flatus or bowel movement, however, she does have nausea and is being treated every 6 hours. She is also developed shortness of breath. I am concerned that this is cardiac in origin based on her recent elevated troponin levels. Certainly with previous findings on KUB a partial small bowel obstructions to be ruled out. We will plan nothing by mouth and Gastrografin small bowel follow-through Subjective Narrative: The patient is seen and evaluated on morning rounds with the acute care surgery team. She was placed on clear liquids yesterday. She states that she has no flatus or bowel movement. She is having nausea that is treated every 6 hours. She is complaining of shortness of breath. Certainly the differential diagnosis includes new onset heart failure or cardiac causes for nausea and shortness of breath. At this point I think that she would benefit from Gastrografin small bowel follow-through. Further treatment will be based on these results. Objective Vital Signs - Last 8 Hours Temp Pulse Resp BP Pulse Ox 06/23/19 07:42 96 06/23/19 07:08 98.3 F 85 20 177/79 95 06/23/19 04:45 98 F 84 17 148/76 93 Intake and Output 06/22/19 06/23/19 06/23/19 23:59 07:59 15:59 Intake Total 2021 1000 / 1000 Output Total 475 / 475 Balance 50 / 622 525 / 525 Intake: IV Fluids 2021 1000 / 1000 KCl 20mEq in D5-0.9 NaCl 20 meq 1000 / 1000 In 1,000 ml @ 75 mls/hr IVC . [id number] [facility] [place] Rx#:[id number] Ofirmev 1,000 mg/100 ml 500 mg 50 / 50 In 50 ml @ 200 mls/hr IVPB ONCE ONE Rx#:[id number] Output: Catheter 475 / 475 Urethral (Celestin) 475 / 475 Other: Weight 129 kg Patient Weight 06/23/19 23:59 Weight 129 kg - General physical appearance moderate pain, chronically ill, obese - Respiratory crackles: bilateral - Cardiovascular Cardiovascular exam: Present: RRR, no murmurs/rubs/gallops - Abdomen Abdomen: Present: bowel sounds present, distended, tender (Very mild central abdominal tenderness with no evidence of guarding or rebound) - Neurologic normal coordination, normal sensation - Psychiatric oriented to time, oriented to person, oriented to place, speech is normal, memory intact - Labs 06/23/19 04:05 06/23/19 04:05 Diabetes panel 06/23/19 Range/Units 04:05 Sodium 141 (136-145) mEq/L Potassium 3.7 (3.5-5.1) mEq/L Chloride 109 H (98-107) mEq/L Carbon Dioxide 23 (23-29) mEq/L BUN 20 (8-23) mg/dL Creatinine 0.79 (0.60-1.20) mg/dL Glucose 162 H (70-105) mg/dL Calcium 8.9 (8.6-10.3) mg/dL Calcium panel 06/23/19 Range/Units 04:05 Calcium 8.9 (8.6-10.3) mg/dL Pituitary panel 06/23/19 Range/Units 04:05 Sodium 141 (136-145) mEq/L Potassium 3.7 (3.5-5.1) mEq/L Chloride 109 H (98-107) mEq/L Carbon Dioxide 23 (23-29) mEq/L BUN 20 (8-23) mg/dL Creatinine 0.79 (0.60-1.20) mg/dL Glucose 162 H (70-105) mg/dL Calcium 8.9 (8.6-10.3) mg/dL Adrenal panel 06/23/19 Range/Units 04:05 Sodium 141 (136-145) mEq/L Potassium 3.7 (3.5-5.1) mEq/L Chloride 109 H (98-107) mEq/L Carbon Dioxide 23 (23-29) mEq/L BUN 20 (8-23) mg/dL Creatinine 0.79 (0.60-1.20) mg/dL Glucose 162 H (70-105) mg/dL Calcium 8.9 (8.6-10.3) mg/dL Consult Discharge Plan - Plan Referrals: Juan Randall DO [Primary Care Provider] -
[2019-06-23] MEDS ORDERED: Metoprolol XL (24 HR) Succ 25 MG TAB.ER.24H PO SCH ×2 (09:00)
[2019-06-23] MEDS ORDERED: Perflutren Lipid Microsphere 1.3 ML in 0.9 % Sodium Chloride 8.7 ML IVP ONE (10:09)
[2019-06-23] MEDS ORDERED: Perflutren Lipid Microsphere 2 ML VIAL ONE (10:13)
[2019-06-23] MEDS ORDERED: Furosemide 20 MG/2 ML VIAL IVP ONE (10:36)
[2019-06-23] MEDS ORDERED: Dexamethasone 4 MG/ML VIAL IVP ONE (10:48)
[2019-06-23] MEDS: Ondansetron 4 MG/2 ML VIAL IVP PRN ×2 (11:38→17:54)
--- NOTE | 2019-06-23 12:56 | Cardiology Progress Note ---
<Cordell Bianchi Bart - Last Filed: 06/23/19 13:15> Date of Encounter: 06/23/19 Time of Encounter: 13:00 Assessment and Plan (1) NSTEMI (non-ST elevated myocardial infarction) Current Visit: Yes Status: Acute Previous reports reviewed: Prior to [facility] tropinins negative x2 without significant EKG changes. Became increasingly SOB, repeat EKG with ST elevations and troponin 30.41. [facility] 06/21/19 preliminary report: successful PCTA/SKIP to prox LAD. Final report pending. Initial echo: Impressions: LVEF 40-45%. Normal LV chamber size. Basal sigmoid septum. Segmental left ventricular systolic dysfunction. Mild left ventricular diastolic dysfunction. There is no LV thrombus. Normal right ventricular structure and function. Moderately calcified aortic valve leaflets. Mild aortic stenosis by Doppler. Mean gradient 9 mmHg. Mild tricuspid regurgitation. Moderate pulmonary hypertension. Estimated RVSP is 54 mmHg. Left Ventricular Wall Motion: Rest Echo Findings The apex, apical inferior, apical septal and mid anterior septal [place] were hypokinetic. All other wall segments showed normal motion. Limited echo ordered today. Impressions: LVEF 40-45%. Normal LV chamber size. Basal sigmoid septum. Segmental left ventricular systolic dysfunction. There is no LV thrombus. Normal right ventricular structure and function. Left Ventricular Wall Motion: a Rest Echo Findings The apex, apical inferior, apical anterior, apical septal and mid anterior septal [place] were hypokinetic. All other wall segments showed normal motion. Currently chest pain free. Euvolemic on exam. Right femoral access site clean, dry and intact- bandage removed. Good distal pulses. Pt. education post procedure given and understands. On ASA, Plavix, BB, ACEI. Pt states intolerance to statins in the past (simvastatin and lovastatin). Recommend script at [facility] for pravastatin. (2) Hypertension Current Visit: Yes Status: Chronic Blood pressure remains above goal at 170s/90s. On BB and ACEI. Will titrate Toprol XL 25mg to 50mg PO daily, Will consider further titration tomorrow of BB and/or ACEI if needed. Qualifiers: Hypertension type: essential hypertension Qualified Code(s): I10 - Essential (primary) hypertension Discussion w patient/family: The assessment and plan as outlined above was discussed with the patient and/or family members who expressed understanding and agreement. All questions were answered. Thank you for involving us in the care of your patient. Please call with any questions. Subjective Principal diagnosis: NSTEMI Objective Vital Signs, Last 4 Hours Temp Pulse Resp BP Pulse Ox 06/23/19 11:53 98.5 F 81 18 175/97 95 Results 06/23/19 04:05 06/23/19 04:05 Lab Results 06/23/19 06/23/19 04:05 04:05 WBC 11.2 H Hgb 15.3 Hct 47.7 H Plt Count 257 Sodium 141 Potassium 3.7 Chloride 109 H Carbon Dioxide 23 BUN 20 Creatinine 0.79 Glucose 162 H Calcium 8.9 Magnesium 1.9 Laboratory Tests 06/20/19 06/20/19 06/21/19 09:58 15:59 16:00 Troponin I < 0.03 < 0.03 30.41 H* 06/21/19 17:12 Troponin I 32.90 H* Impressions Abdomen/Pelvis CT 06/20/19 09:56 IMPRESSION: 1. Mildly dilated loops of small bowel predominantly within the mid to lower abdomen with collapse of the distal ileum. Although a discrete transition point is not identified, findings are highly suspicious for early/developing high-grade small bowel obstruction given mesenteric edema and trace ascites. 2. Large hiatal hernia. 3. Few 3-4 mm nodules within the right middle lobe and lingula, nonspecific and may be infectious or inflammatory in etiology. These can be followed up per Fleischner Society guidelines. RECOMMENDATIONS: Guidelines for follow-up and management of pulmonary nodules found on abdomen CT: <6 mm - No follow up recommend on the basis of the estimated low risk of malignancy. 6-8-mm - recommend follow-up chest CT after an appropriate interval (3-12 months depending on clinical risk). >8mm - immediate chest CT for further evaluation. Radiology 2017 http://pubs.rsna.org/doi/full/10.1148/radiol.5453870383 D/ / 06/20/2019 11:19:18 Maty Faye MD / suleiman Interpreting Provider: Mayt Faye MD Chest X-Ray 06/23/19 08:00 IMPRESSION: 1. No significant change. D/ / Darrin Joseph MD / Darrin Joseph MD Interpreting Provider: Darrin Joseph MD Echocardiogram Limited Views 06/23/19 08:00 Impressions: LVEF 40-45%. Normal LV chamber size. Basal sigmoid septum. Segmental left ventricular systolic dysfunction. There is no LV thrombus. Normal right ventricular structure and function. Left Ventricular Wall Motion: Rest Echo Findings The apex, apical inferior, apical anterior, apical septal and mid anterior septal tijer[place] were hypokinetic. All other wall segments showed normal motion. Active Medications Aspirin (Aspirin) 81 mg PO DAILY [facility] Stop: 12/22/19 09:01 Last Admin: 06/23/19 07:37 Dose: 81 mg Documented by: Clopidogrel Bisulfate (Plavix) 75 mg PO DAILY [facility] Stop: 12/22/19 09:01 Last Admin: 06/23/19 07:38 Dose: 75 mg Documented by: Heparin Sodium (Porcine) (Heparin) 5,000 unit SQ Q12HR [facility] Stop: 12/20/19 18:01 Last Admin: 06/23/19 05:54 Dose: 5,000 unit Documented by: Lisinopril (Zestril) 2.5 mg PO DAILY [facility]; Protocol Stop: 12/22/19 09:01 Last Admin: 06/23/19 07:37 Dose: 2.5 mg Documented by: Metoprolol Succinate (Toprol Xl) 25 mg PO QAM [facility] Stop: 12/23/19 09:01 Last Admin: 06/23/19 07:37 Dose: 25 mg Documented by: Naloxone HCl (Narcan) 0.4 mg IVP Q2MPRN PRN PRN Reason: SEE COMMENTS Stop: 12/20/19 15:35 Nitroglycerin (Nitroglycerin) 0.4 mg SL Q5MPRN PRN PRN Reason: Chest Pain Stop: 12/22/19 13:43 Omeprazole (Prilosec) 20 mg PO DAILY@0630 [facility]; Protocol Stop: 12/23/19 06:31 Last Admin: 06/23/19 05:55 Dose: 20 mg Documented by: Ondansetron HCl (Zofran) 4 mg IVP Q6HR PRN PRN Reason: Nausea And Vomiting Stop: 12/23/19 03:24 Last Admin: 06/23/19 11:38 Dose: 4 mg Documented by: Oxycodone HCl (Oxycodone Oral Conc) 5 mg SL Q4H PRN; Protocol PRN Reason: mild to moderate pain Stop: 12/20/19 15:35 - Imaging and Cardiology Echo: report reviewed Consult Discharge Plan - Plan Referrals: Juan Randall DO [Primary Care Provider] - <William Kaufman - Last Filed: 06/24/19 12:10> Date of Encounter: 06/24/19 Assessment and Plan (1) NSTEMI (non-ST elevated myocardial infarction) Current Visit: Yes Status: Acute I have personally performed a face to face evaluation on this patient. I have reviewed and agree with the care plan. History and Exam by me shows: 83-year-old female status post-PCI to proximal LAD with significant improvement in breathing and status. NG tube was removed post-PCI in patient complained of return of shortness of breath and abdominal discomfort. Surgery notified testing confirms small bowel obstruction. Patient may proceed with exploratory laparoscopy. Do recommend continuing aspirin and Plavix for above procedure due to high risk of stent thrombosis otherwise Discussion w patient/family: The assessment and plan as outlined above was discussed with the patient and/or family members who expressed understanding and agreement. All questions were answered. Thank you for involving us in the care of your patient. Please call with any questions. Results 06/24/19 07:15 06/24/19 07:15 Lab Results 06/23/19 06/24/19 06/24/19 18:11 07:15 07:15 WBC 15.0 H Hgb 15.6 H Hct 48.4 H Plt Count 233 Sodium 143 146 H Potassium 3.9 3.4 L Chloride 111 H 110 H Carbon Dioxide 25 25 BUN 21 23 Creatinine 0.76 0.73 Glucose 174 H 137 H Calcium 9.8 9.5
--- NOTE | 2019-06-23 14:01 | Internal Med Progress Note ---
Hospitalist Progress Note - Encounter Date of Encounter: 06/23/19 Time of Encounter: 07:45 - Subjective Interval History: Patient seen at bedside. She was feeling much better last night but now she is feeling short of breath and nauseated. Denies any fever and chills. Has not thrown up. Try to have food in the morning but then she become nauseated. No other overnight events. - Exam Vitals: Temp Pulse Resp BP Pulse Ox 98.5 F 81 18 175/97 95 06/23/19 11:53 06/23/19 11:53 06/23/19 11:53 06/23/19 11:53 06/23/19 11:53 Exam: General: Alert and oriented, moderate physical distress, able to follow commands. HEENT: No thyromegaly, no lymphadenopathy, no discharge. Eyes: No discharge. Normal conjuctiva, no icterus Respiratory: Normal vesicular breathing, no added sounds, breathing equal in both sides. CVS: Normal heart sounds, no murmurs, regular rhthm, no edema Extremities: No peripheral edema, peripheral pulses intact. Lymph nodes: No lymphadenopathy Gastrointestinal: Soft, mild tenderness, normal abdominal sounds. Distention noted Genitourinary: No paravertebral tenderness. Skin: No rash, ulcers or wound. Neurological: Alert and oriented. No focal deficits. Cranial nerves II-XII intact - Assessment and Plan (1) Small bowel obstruction Current Visit: Yes Status: Acute Assessment and Plan: Presented with abdominal pain, nausea and vomiting. CT scan of the abdomen without contrast showed mildly dilated loops of small bowel predominantly within the mid to lower abdomen with collapse of the distal ileum. Discrete transition point is not identified. Findings highly suspicious for early high-grade small bowel obstruction given mesenteric edema and trace ascites. Large hiatal hernia. Also showed 3-4 mm nodules within the right middle lobe and lingula which could be inflammatory or infectious. Pt had ACS on 06/21. She got better on 06/22 , NG tube was removed and diet was started. As mentioned above, feeling worse now, surgery on board, patient made NPO again and plan fr Gastrografin small bowel follow-through Continue to monitor (2) Nausea and vomiting Current Visit: Yes Status: Acute Assessment and Plan: Zofran ordered for nausea and vomiting. (3) Hypertension Current Visit: Yes Status: Chronic Assessment and Plan: Currently blood pressure in the 170s On metoprolol and lisinopril which will be continued (4) DVT prophylaxis Current Visit: Yes Status: Acute Assessment and Plan: Subcutaneous heparin. 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 THis most recent disress could be in context of SBO. WIll cotninue to monitor - Time Spent with Patient Total time spent is greater than 50% in coordination of care (as documented) at patient's floor/unit and/or counseling patient: Internal Medicine: Result - Labs CBC & Chem 7: 06/23/19 04:05 06/23/19 04:05 Labs: Short CBC 06/23/19 Range/Units 04:05 WBC 11.2 H (4.3-11.1) K/mcL Hgb 15.3 (11.5-15.4) g/dL Hct 47.7 H (35.3-44.9) % Plt Count 257 (140-400) K/mcL Neutrophils # 9.2 H (1.6-8.9) K/mcL BMP 06/23/19 04:05 Sodium 141 Potassium 3.7 Chloride 109 H Carbon Dioxide 23 BUN 20 Creatinine 0.79 Glucose 162 H Calcium 8.9 - ABG Interpretation ABG results: PT/INR, D-dimer PT 10.7 Seconds (9.4-12.1) 06/20/19 09:58 D-Dimer 1475 ng/mLFEU (0-500) H 06/20/19 09:58 - Impressions Impressions Abdomen/Pelvis CT 06/20/19 09:56 IMPRESSION: 1. Mildly dilated loops of small bowel predominantly within the mid to lower abdomen with collapse of the distal ileum. Although a discrete transition point is not identified, findings are highly suspicious for early/developing high-grade small bowel obstruction given mesenteric edema and trace ascites. 2. Large hiatal hernia. 3. Few 3-4 mm nodules within the right middle lobe and lingula, nonspecific and may be infectious or inflammatory in etiology. These can be followed up per Fleischner Society guidelines. RECOMMENDATIONS: Guidelines for follow-up and management of pulmonary nodules found on abdomen CT: <6 mm - No follow up recommend on the basis of the estimated low risk of malignancy. 6-8-mm - recommend follow-up chest CT after an appropriate interval (3-12 months depending on clinical risk). >8mm - immediate chest CT for further evaluation. Radiology 2017 http://pubs.rsna.org/doi/full/[email or web address] D/ / 06/20/2019 11:19:18 Maty Faye MD / [email or web address] Interpreting Provider: Maty Faye MD Chest X-Ray 06/23/19 08:00 IMPRESSION: 1. No significant change. D/ / Darrin Joseph MD / Darrin Joseph MD Interpreting Provider: Darrin Joseph MD Echocardiogram Limited Views 06/23/19 08:00 Impressions: LVEF 40-45%. Normal LV chamber size. Basal sigmoid septum. Segmental left ventricular systolic dysfunction. There is no LV thrombus. Normal right ventricular structure and function. Left Ventricular Wall Motion: Rest Echo Findings The apex, apical inferior, apical anterior, apical septal and mid anterior septal tijerina were hypokinetic. All other wall segments showed normal motion. Findings: Study Quality * Technically adequate exam. ECG Findings * Normal sinus rhythm. Left Ventricle * LVEF 40-45%. * Normal LV chamber size. * Basal sigmoid septum. * Segmental left ventricular systolic dysfunction. * There is no LV thrombus. Right Ventricle * Normal right ventricular structure and function. Aorta * Normally sized aortic root. Pericardium * The pericardium appears normal. IVC * Normal IVC dimensions and inspiratory collapse. Consult Discharge Plan - Plan Referrals: Juan Randall DO [Primary Care Provider] - (2) Nausea and vomiting Qualifiers: Vomiting type: unspecified Vomiting Intractability: intractable Qualified Code(s): R11.2 - Nausea with vomiting, unspecified (3) Hypertension Qualifiers: Hypertension type: essential hypertension Qualified Code(s): I10 - Essential (primary) hypertension
[2019-06-23] MEDS ORDERED: *HR* Promethazine 25 MG/ML VIAL IVP STA (14:37)
[2019-06-23] MEDS ORDERED: *HR* LORazepam 2 MG/ML VIAL IVP PRN (17:29)
[2019-06-23] MEDS ORDERED: *HR* Metoprolol 5 MG/5 ML VIAL IVP ONE ×2 (17:37→21:30)
[2019-06-23] MEDS ORDERED: 0.9 % Sodium Chloride w KCl 20 MEQ/1,000 ML MLS IVC SCH (18:00)
[2019-06-23 18:41] LABS: BUN/Creatinine Ratio 28 (6-26); Blood Urea Nitrogen 21 mg/dL (8-23); Calcium 9.8 mg/dL (8.6-10.3); Carbon Dioxide 25 mEq/L (23-29); Chloride 111 mEq/L (98-107); Glucose 174 mg/dL (70-105); Osmolality,Calculated 303 (280-300); Potassium 3.9 mEq/L (3.5-5.1); Sodium 143 mEq/L (136-145); eGFR For African Americans > 60 (> 60); eGFR For Non-African Americans > 60 (> 60)
[2019-06-24] MEDS: *HR* Heparin 5,000 UNIT/ML VIAL SQ SCH (05:12)
[2019-06-24] MEDS: Ondansetron 4 MG/2 ML VIAL IVP PRN (05:14)
--- NOTE | 2019-06-24 06:41 | Acute Care Surgery Event Note ---
Date of Encounter: 06/24/19 Time of Encounter: 06:20 The patient underwent small bowel follow-through yesterday. The last film that I saw before leaving the hospital demonstrated progress to the mid small bowel with an abrupt termination. Delayed films demonstrated a complete bowel obstruction. I discussed the findings with the radiologist last evening and a nasogastric tube was placed. The nasogastric tube immediately return 1600 mL in the patient's nausea and abdominal pain went away. Today she is not passing flatus and it appears that she has a complete bowel obstruction. The patient is had recent myocardial infarction as well as cardiac catheterization and stent placement. This places her at increased risk for bleeding complications, myocardial ischemia, myocardial infarction extension, and ventilator dependence. Unfortunately, waiting further will only increase her complication rate. I have recommended exploratory laparotomy she understands the risks and benefits and wishes to proceed.
[2019-06-24 07:34] LABS: Basophils % 0.2 %; Hematocrit 48.4 % (35.3-44.9); Hemoglobin 15.6 g/dL (11.5-15.4); Immature Granulocytes % 0.4 % (0-4); Lymphocytes # 0.5 K/mcL (0.6-4.6); Lymphocytes % 3.4 %; Mean Corpuscular HGB Conc 32.2 g/dL (31.6-35.5); Mean Corpuscular Hemoglobin 32.5 pg (28.0-33.3); Mean Corpuscular Volume 100.8 fL (83.0-100.0); Monocytes % 6.5 %; Neutrophils # 13.5 K/mcL (1.6-8.9); Platelet Count 233 K/mcL (140-400); Red Cell Distribution Width 13.2 % (11.5-14.5); Segmented Neutrophils % 89.5 %
[2019-06-24 07:54] LABS: BUN/Creatinine Ratio 32 (6-26); Blood Urea Nitrogen 23 mg/dL (8-23); Calcium 9.5 mg/dL (8.6-10.3); Carbon Dioxide 25 mEq/L (23-29); Chloride 110 mEq/L (98-107); Glucose 137 mg/dL (70-105); Osmolality,Calculated 308 (280-300); Potassium 3.4 mEq/L (3.5-5.1); Sodium 146 mEq/L (136-145); eGFR For African Americans > 60 (> 60); eGFR For Non-African Americans > 60 (> 60)
[2019-06-24] MEDS ORDERED: Metoprolol XL (24 HR) Succ 50 MG TAB.ER.24H PO SCH (09:00)
[2019-06-24] MEDS: Aspirin 81 MG TAB.CHEW PO SCH (09:09)
--- NOTE | 2019-06-24 09:39 | Event Note ---
Date of Encounter: 06/24/19 Time of Encounter: 08:30 - Cardiology Event Note S/P LHC x 2 days; successful PCTA/SKIP to prox LAD Recommended exp. lap for possible complete bowel obstruction per Dr. Santos today. Recommended to Remain on DAPT; ASA, plavix. BP better controlled trending down from 170s/100s to 140s/90s. ; On Toprol XL 50mg daily, continue. Discussed and reviewed with Dr. Kaufman. Cardiology will sign off. re=consult if needed. F/u arranged. Laboratory Tests 06/24/19 06/24/19 07:15 07:15 Hgb 15.6 H Hct 48.4 H BUN 23 Creatinine 0.73 Est GFR (Non-Af Amer) > 60 HAS-BLED Score - Score Elderly: Age>65 years Score: 1
--- NOTE | 2019-06-24 10:32 | Anesthesia Evaluation PreOp ---
Date of Encounter: 06/24/19 Time of Encounter: 16:35 - Past History Planned Operation: Exp. 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: Denies Any Significant HX Other Medical History: Other (Morbid Obesity,) : No Alcohol Use: none Drug use: none Medications and Allergies Aspirin 81 mg PO QPM 08/04/15 [History] Losartan/Hydrochlorothiazide [Hyzaar 100-12.5 Tablet] 1 each PO QPM 08/04/15 [History] Loratadine [Claritin] 10 mg PO DAILY 08/23/18 [History] Tolterodine Tartrate [Detrol] 2 mg PO BID 09/25/18 [History] Cholecalciferol (D-3) [Vitamin D] 2,000 units PO QAM 06/20/19 [History] Metoprolol Succinate [Toprol Xl] 25 mg PO QAM 06/20/19 [History] Multivit-Min/Iron/Folic/Lutein [Centrum Silver Women Tablet] 1 tab PO QPM 06/20/19 [History] Omeprazole 20 mg PO QAM 06/20/19 [History] PARoxetine HCl [Paroxetine HCl] 20 mg PO QAM 06/20/19 [History] Allergy/AdvReac Type Severity Reaction Status Date / Time Iodinated Contrast Media AdvReac Hives Verified 06/20/19 21:06 Penicillins [PCN] AdvReac Hives Verified 06/20/19 21:06 Uynrdup-Baw-Dsn Reductase AdvReac Muscle Pain Verified 06/20/19 21:06 Inhibitor [Statins] - Meds/Allergy Pre-op Review Medications Reviewed: Yes Allergies Reviewed: Yes Beta Blockers on Current Med List: Yes Anesthesia Results - Labs 06/24/19 14:46 06/24/19 14:46 Laboratory Tests 06/21/19 17:12 Troponin I 32.90 H* - Imaging EKG: report reviewed, image reviewed Anesthesia Exam Vital Signs/O2 Sat, Most Current Temp Pulse Resp BP Pulse Ox 98.7 F 108 20 148/98 91 06/24/19 07:58 06/24/19 07:58 06/24/19 07:58 06/24/19 07:58 06/24/19 07:58 - HEENT Pupil (Motor): Pupils equal, EOMI Mallampati: III - AIRCRAFT STRUCTURAL DESIGN ENGINEER LOC: Oriented AIRCRAFT STRUCTURAL DESIGN ENGINEER Motor: Normal RUE, Normal LUE, Normal RLE, Normal LLE, Normal Face AIRCRAFT [employer]URAL DESIGN ENGINEER Sensory: Normal: RUE, LUE, RLE, LLE, Face - Cardiac Rhythm: Regular Murmur: None JVD: No - Pulmonary Breath Sounds: bilateral Clear Respiratory Effort: Symmetrical Anesthesia Assess/Plan ASA Score: 4 Level of consciousness: Cooperative, Oriented Anesthetic Plan: General Monitoring Plan: Standard Monitors Recovery Plan: PACU
[2019-06-24] MEDS ORDERED: 0.9 % Sodium Chloride 1,000 ML ONE (11:30)
[2019-06-24] MEDS ORDERED: 0.9 % Sodium Chloride 1,000 ML IVC ONE ×2 (11:34→12:47)
[2019-06-24] MEDS ORDERED: levoFLOXacin 750 MG/150 ML 750 MG/150 ML BAG IVPB SCH ×2 (11:45→13:00)
[2019-06-24] MEDS ORDERED: MetroNIDAZOLE 500 MG/100 ML 500 MG/100 ML BAG IVPB SCH (12:00)
--- NOTE | 2019-06-24 12:11 | Internal Med Progress Note ---
Hospitalist Progress Note - Encounter Date of Encounter: 06/24/19 Time of Encounter: 11:00 - Subjective Interval History: Pt was seen in the [facility] around 8:00, plan was for the exploratory laprotmy. Alerted by the nurse around 11 that the pt is tachypneic, hypotensie. Went to see the pt, pt was lethargic, and hypotensive. She was given 1L of IV fluid bolus, started on IV antibioitcs, and after talking to the ICU attending, is being transferred to the ICU. Family at the bedside who are notified. - Exam Vitals: Temp Pulse Resp BP Pulse Ox 98.7 F 108 20 148/98 91 06/24/19 07:58 06/24/19 07:58 06/24/19 07:58 06/24/19 07:58 06/24/19 07:58 Exam: General: Somnolent and lethargic, moderate physical distress Respiratory: Normal vesicular breathing, no added sounds, breathing equal in both sides. CVS: Normal heart sounds, no murmurs, regular rhthm, no edema Lymph nodes: No lymphadenopathy Gastrointestinal: Distention noted, generalized tenderness in the belly. Genitourinary: No paravertebral tenderness. Skin: No rash, ulcers or wound. Neurological: Somnolent and lethargic. - Assessment and Plan (1) Small bowel obstruction Current Visit: Yes Status: Acute Assessment and Plan: Presented with abdominal pain, nausea and vomiting. CT scan of the abdomen (06/20) without contrast showed mildly dilated loops of sma ll bowel predominantly within the mid to lower abdomen with collapse of the distal ileum. Discrete transition point is not identified. Findings highly suspicious for early high-grade small bowel obstruction given mesenteric edema and trace ascites. Large hiatal hernia. Also showed 3-4 mm nodules within the right middle lobe and lingula which could be inflammatory or infectious. Pt had ACS on 06/21. She got better on 06/22 , NG tube was removed and diet was started. Started feeling worse (06/23), small bowel follow through compatible with acute bowel obstruction in the ileum. NG was placed again. She is being taken today for the exploratory laprotomy. Currentl seems septic, started on IV fludis, broad spectrum antibiotics, blood cultures have been collected. Being transferred to the ICU, may need intubation. (2) Septic shock Current Visit: Yes Status: Acute Assessment and Plan: Currently in septic shock Started on IV antibiotics. 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 (5) DVT prophylaxis Current Visit: Yes Status: Acute Assessment and Plan: Subcutaneous heparin. - Time Spent with Patient Total time spent is greater than 50% in coordination of care (as documented) at patient's floor/unit and/or counseling patient: Internal Medicine: Result - Labs CBC & Chem 7: 06/24/19 07:15 06/24/19 07:15 Labs: Short CBC 06/24/19 Range/Units 07:15 WBC 15.0 H (4.3-11.1) K/mcL Hgb 15.6 H (11.5-15.4) g/dL Hct 48.4 H (35.3-44.9) % Plt Count 233 (140-400) K/mcL Neutrophils # 13.5 H (1.6-8.9) K/mcL BMP 06/23/19 06/24/19 18:11 07:15 Sodium 143 146 H Potassium 3.9 3.4 L Chloride 111 H 110 H Carbon Dioxide 25 25 BUN 21 23 Creatinine 0.76 0.73 Glucose 174 H 137 H Calcium 9.8 9.5 - ABG Interpretation ABG results: PT/INR, D-dimer PT 10.7 Seconds (9.4-12.1) 06/20/19 09:58 D-Dimer 1475 ng/mLFEU (0-500) H 06/20/19 09:58 - Impressions Impressions Echocardiogram Limited Views 06/23/19 08:00 Impressions: LVEF 40-45%. Normal LV chamber size. Basal sigmoid septum. Segmental left ventricular systolic dysfunction. There is no LV thrombus. Normal right ventricular structure and function. Left Ventricular Wall Motion: Rest Echo Findings The apex, apical inferior, apical anterior, apical septal and mid anterior septal tijerina were hypokinetic. All other wall segments showed normal motion. Findings: Study Quality * Technically adequate exam. ECG Findings * Normal sinus rhythm. Left Ventricle * LVEF 40-45%. * Normal LV chamber size. * Basal sigmoid septum. * Segmental left ventricular systolic dysfunction. * There is no LV thrombus. Right Ventricle * Normal right ventricular structure and function. Aorta * Normally sized aortic root. Pericardium * The pericardium appears normal. IVC * Normal IVC dimensions and inspiratory collapse. Small Bowel X-Ray 06/23/19 08:20 IMPRESSION: 1. Findings compatible with an acute small-bowel obstruction in the mid ileum. 2. Moderate-sized hiatal hernia. Findings were discussed with William Santos MD at 7:00 pm on 06/23/2019. D/ / 06/23/2019 19:33:46 Humphrey Morales MD / [email or web address] Interpreting Provider: Humphrey Morales MD X-Ray 06/24/19 07:00 IMPRESSION: No significant change in findings consistent with small-bowel obstruction. Contrast remains within the small bowel. D/ / Darrin Snyder MD / Darrin Snyder MD Interpreting Provider: Darrin Snyder MD Consult Discharge Plan - Plan Referrals: Juan Randall DO [Primary Care Provider] - (4) Nausea and vomiting Qualifiers: Vomiting type: unspecified Vomiting Intractability: intractable Qualified Code(s): R11.2 - Nausea with vomiting, unspecified
[2019-06-24] MEDS ORDERED: Ondansetron 4 MG/2 ML VIAL IVP PRN (12:20)
[2019-06-24] MEDS ORDERED: Nitroglycerin 0.4 MG TAB.SUBL SL PRN (12:20)
[2019-06-24] MEDS ORDERED: Naloxone 0.4 MG/ML INJ IVP PRN (12:20)
[2019-06-24] MEDS ORDERED: 0.9 % Sodium Chloride w KCl 20 MEQ/1,000 ML MLS IVC SCH (12:20)
[2019-06-24] MEDS ORDERED: *HR* LORazepam 2 MG/ML VIAL IVP PRN (12:20)
[2019-06-24] MEDS ORDERED: Aminoglycoside Consult 1 EACH MC ONE (13:10)
--- NOTE | 2019-06-24 13:10 | Event Note ---
Date of Encounter: 06/24/19 Time of Encounter: 12:06
[2019-06-24] MEDS ORDERED: Metoprolol XL (24 HR) Succ 25 MG TAB.ER.24H PO ONE (13:18)
[2019-06-24] MEDS ORDERED: *HR* Heparin 5,000 UNIT/ML VIAL IVP PRN ×2 (14:04)
[2019-06-24] MEDS ORDERED: *HR* Heparin 5,000 UNIT/ML VIAL IVP ONE (14:04)
[2019-06-24] MEDS ORDERED: Heparin 25,000 UNIT/250 ML D5W 25,000 UNIT/250 ML IV.SOLN IVC SCH (14:15)
[2019-06-24] MEDS: 0.9 % Sodium Chloride 1,000 ML IVC SCH ×4 (14:38→19:40)
[2019-06-24] MEDS ORDERED: Heparin 1,000 UNITS/500 mL 500 ML ONE (14:45)
--- NOTE | 2019-06-24 14:47 | Event Note ---
Date of Encounter: 06/24/19 Time of Encounter: 12:45 Patient was transferred to intensive care unit at the request of Dr. Thomas and for hemodynamic instability secondary to small bowel obstruction. Dr. Santos plans to take her to surgery as soon as possible. She has been fluid responsive, but she is in need of ICU care, hemodynamic support, and possible intubation. Patient was moved to ICU then and has remained on IV fluids. I spoke with patient and family. She requests to be DNR arrest/DNI. However, short term intubation is okay with her and her family for surgery as planned. In the event of cardiac arrest and/or respiratory arrest, she wishes to be kept comfortable and to peacefully. Given her hemodynamic instability, I obtained consent from patient, her daughter, and her son verbally as witnessed by her nurse to place the central venous catheter for hemodynamic support and pressor support. I then proceeded tried to place a left femoral CVC sterilely using Seldinger technique. Her left groin was prepped and draped sterile fashion. A formal timeout was called. Using an Arrows triple lumen catheter kit, I used the provided instruments and material for the procedure. I successfully aspirated her left femoral vein on 2 separate occasions but I was unable to thread the guidewire. On the third attempt, I was unsuccessful and aspirated the femoral artery. I therefore aborted the procedure and held pressure until hemostasis was obtained. At that point, I asked for assistance from anesthesia to place an IJ or subclavian CVC. Dr. Carl placed a right IJ successfully and we will use that for ongoing hemodynamic support. I spoke with Dr. Santos after the above and informed him that patient appears that she might not have been receiving her aspirin and Plavix last 2 days on the floor. He recommended starting on heparin drip and that he can operate on patient even on heparin drip. I called cardiology and informed them of her status and they are aware. Presently, patient denies any chest pain or shortness of breath. She is awaiting surgery. Exam: HR 92; RR: 21; BP: 105/87; T: 98.5 Genreal: MIldly ill appearing, nauseated, alert HEENT: NG tube in place, neck supple Chest: Rhonchi and faint crackles; RRR Abdomen: distended; absent BS; tender Ext: No CCE; equal pulses Neuro: A&Ox3; no focal deficits Skin: wamr and dry Imp/Plan: 1. SBO with hemodynamic instability/shock: CVC placed per anesthesia; failed Femoral attempt by me. IVF and pressor support as necessary. Blood cultures obtained. Antibiotics to cover GI zan. Surgeyr per Dr. Santos. Sepsis orders initiated -- patient received 2000ml; will administer another 1780 ml now to total 30 ml/kg. Trend lactates and blood cultures. 2. Recent STEMI this hospital stay: Discussed with cardiology and Dr. Santos that patient does not appear to have taken her ASA/Plavix the last [address] Santos recommends starting heparin drip per ACS protocol -- ordered. Dr. Kaufman informed of above -- recommends starting ASA/Plavix after surgery as soon as possible. Patient requests to remain DNR-Arrest/DNI after surgeryDv 3. DVT prophylaxis Heparin drip as above. Total of 65 critical care time spent evaluating, caring for, and coordinating care of patient, including failed Left Femoral CVC attempt.
[2019-06-24 15:16] LABS: Hematocrit 41.2 % (35.3-44.9); Mean Corpuscular HGB Conc 31.6 g/dL (31.6-35.5); Mean Corpuscular Hemoglobin 31.9 pg (28.0-33.3); Mean Corpuscular Volume 101.2 fL (83.0-100.0); Mean Platelet Volume 10.9 fL (9.4-12.4); Platelet Count 220 K/mcL (140-400); Red Blood Count 4.07 M/mcL (3.82-4.97); Red Cell Distribution Width 13.4 % (11.5-14.5); White Blood Count 19.3 K/mcL (4.3-11.1)
[2019-06-24 15:20] LABS: Heparin anti-factor XA UFH 0.04 IU/mL (0.30-0.70); INR 1.2; Prothrombin Time 13.8 Seconds (9.4-12.1)
[2019-06-24] MEDS: MetroNIDAZOLE 500 MG/100 ML 500 MG/100 ML BAG IVPB SCH ×2 (15:32→23:42)
[2019-06-24 16:20] LABS: BUN/Creatinine Ratio 30 (6-26); Blood Urea Nitrogen 23 mg/dL (8-23); Calcium 8.7 mg/dL (8.6-10.3); Carbon Dioxide 27 mEq/L (23-29); Chloride 113 mEq/L (98-107); Glucose 155 mg/dL (70-105); Magnesium 1.8 mg/dL (1.6-2.6); Osmolality,Calculated 311 (280-300); Potassium 3.4 mEq/L (3.5-5.1); Sodium 147 mEq/L (136-145); eGFR For African Americans > 60 (> 60); eGFR For Non-African Americans > 60 (> 60)
[2019-06-24] MEDS: 0.9 % Sodium Chloride w KCl 20 MEQ/1,000 ML MLS IVC SCH ×2 (16:55→19:42)
[2019-06-24] MEDS ORDERED: CefOXitin 1,000 MG VIAL ONE (17:10)
[2019-06-24] MEDS ORDERED: *HR* Heparin 5,000 UNIT/ML VIAL SQ SCH (18:00)
[2019-06-24] MEDS ORDERED: *HR* FentaNYL (PF) 100 MCG/2 ML VIAL ONE (18:13)
[2019-06-24] MEDS ORDERED: *HR* Midazolam HCl 2 MG/2 ML VIAL ONE (18:39)
--- NOTE | 2019-06-24 18:58 | Operative Note ---
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 The abdomen was prepped and draped in sterile fashion utilizing ChloraPrep standard draping techniques. I met was taken and the patient was identified. Made a vertical midline incision in the abdomen. Was immediately apparent that the distal small bowel was about one fourth the diameter of the proximal small bowel I followed this down to a short set of adhesive bands encasing the base of a Meckel's diverticulum about 4 cm in length. There were some abnormal tissue at the apex of the Meckel's diverticulum. The Meckel's diverticulum where it intersected the lumen was the point of obstruction. I made an opening in the mesentery prox imal and distal to the Meckel's diverticulum about 3 or 4 cm. The small bowel was divided with SAGAR proximal and distal. Dirty technique anastomosis was used. The mesentery was divided with clamps and hemostatic ligatures of 2-0 silk. Standard functional end-to-end antimesenteric anastomosis with SAGAR was performed. The SAGAR was used to anastomose the antimesenteric borders of proximal and distal small bowel and the resulting enterotomy was closed with a TA 60. The anastomosis was circumferentially reinforced using interrupted 3-0 silk seromuscular stitches. The mesentery was closed with interrupted [id number] 3-0 silk stitches. She tolerated the procedure very well. The abdomen was irrigated with post copious amounts of antibiotic containing solution. There is no evidence of bleeding. Blood loss 20 mL. Midline was closed with looped 0 PDS. Skin was closed with interrupted Vicryl and skin clips. She tolerated the procedure well
[2019-06-24] MEDS: Norepinephrine 4 MG in 0.9 % Sodium Chloride 250 ML IVC SCH (19:32)
[2019-06-24] MEDS: FentaNYL (PF) 1,000 MCG in 0.9 % Sodium Chloride 80 ML IVC SCH (19:44)
[2019-06-24] MEDS ORDERED: Tirofiban 12.5 MG/250ML 12.5 MG/250 ML BAG IVC SCH (20:30)
--- NOTE | 2019-06-24 21:08 | Anesthesia Evaluation Post Op ---
Date of Encounter: 06/24/19 Time of Encounter: 21:05 - Discharge PostOp Status: Transfer Patient to floor Anes Supervising Prov Stmt: Patient's vital signs have been reviewed. Patient is stable postoperatively. Patient has remained sedated and intubated postoperatively and is mechanically ventilated. Patient has a stable heart rate, blood pressure and adequate hydration. Patients temperature is appropriate. Pain is adequately controlled
[2019-06-25] MEDS: FentaNYL (PF) 1,000 MCG in 0.9 % Sodium Chloride 80 ML IVC SCH ×4 (02:02→22:58)
[2019-06-25 03:35] LABS: Alanine Aminotransferase 17 Units/L (7-52); Albumin 2.8 g/dL (3.5-5.7); Albumin/Globulin Ratio 1.1 (1.1-2.2); Alkaline Phosphatase 45 Units/L (34-104); Aspartate Amino Transferase 22 Units/L (13-39); BUN/Creatinine Ratio 25 (6-26); Bilirubin,Total 0.7 mg/dL (0.3-1.0); Blood Urea Nitrogen 25 mg/dL (8-23); Calcium 8.2 mg/dL (8.6-10.3); Carbon Dioxide 24 mEq/L (23-29); Chloride 118 mEq/L (98-107); Globulin 2.5 g/dL (2.4-3.5); Glucose 144 mg/dL (70-105); Magnesium 1.7 mg/dL (1.6-2.6); Osmolality,Calculated 313 (280-300); Potassium 3.8 mEq/L (3.5-5.1); Sodium 148 mEq/L (136-145); Total Protein 5.3 g/dL (6.4-8.9); eGFR For African Americans > 60 (> 60); eGFR For Non-African Americans 53 (> 60)
[2019-06-25 04:06] LABS: Basophils % 0.2 %; Hematocrit 38.4 % (35.3-44.9); Immature Granulocytes % 0.7 % (0-4); Lymphocytes # 0.4 K/mcL (0.6-4.6); Lymphocytes % 2.1 %; Mean Corpuscular HGB Conc 30.7 g/dL (31.6-35.5); Mean Corpuscular Hemoglobin 32.1 pg (28.0-33.3); Mean Corpuscular Volume 104.3 fL (83.0-100.0); Mean Platelet Volume 11.2 fL (9.4-12.4); Monocytes # 0.9 K/mcL (0.0-1.3); Monocytes % 5.1 %; Neutrophils # 16.8 K/mcL (1.6-8.9); Platelet Count 233 K/mcL (140-400); Red Blood Count 3.68 M/mcL (3.82-4.97); Red Cell Distribution Width 13.6 % (11.5-14.5); Segmented Neutrophils % 91.9 %; White Blood Count 18.3 K/mcL (4.3-11.1)
[2019-06-25 04:25] LABS: Hemoglobin 11.8 g/dL (11.5-15.4)
[2019-06-25 04:32] LABS: ABG Base Excess -2 mEq/L (-2 to 3); ABG HCO3 23 mEq/L (21-27); ABG Oxygen Saturation 93 % (95-98); ABG PCO2 39 mmHg (35-45); ABG PH 7.37 pH Units (7.32-7.45); ABG PO2 68 mmHg (85-104); ABG TCO2 24 mEq/L (20-26); Blood Gas Modality ASSIST CONTROL; Blood Gas PEEP 5 cm H2O; Blood Gas VT 600 cc
[2019-06-25 05:07] LABS: Platelet Estimate Normal (Normal)
[2019-06-25] MEDS: 0.9 % Sodium Chloride w KCl 20 MEQ/1,000 ML MLS IVC SCH (05:50)
[2019-06-25] MEDS ORDERED: Nitroglycerin 0.4 MG TAB.SUBL SL PRN (07:26)
[2019-06-25] MEDS ORDERED: 0.9 % Sodium Chloride w KCl 20 MEQ/1,000 ML MLS IVC SCH (07:26)
[2019-06-25] MEDS ORDERED: Naloxone 0.4 MG/ML INJ IVP PRN (07:26)
[2019-06-25] MEDS ORDERED: Ondansetron 4 MG/2 ML VIAL IVP PRN (07:26)
[2019-06-25] MEDS ORDERED: Aspirin 81 MG TAB.CHEW PO SCH ×2 (09:00)
[2019-06-25] MEDS ORDERED: levoFLOXacin 750 MG/150 ML 750 MG/150 ML BAG IVPB SCH (09:00)
--- NOTE | 2019-06-25 09:03 | Pulmonology Consult Note ---
<Corey Colon - Last Filed: 06/25/19 14:49> Date of Encounter: 06/25/19 Time of Encounter: 09:03 Assessment and Plan (1) Acute respiratory failure with hypoxia Current Visit: Yes Status: Acute ARDS versus CHF with fluid overload versus PNA WBC of 18.3 CTA 06/20/19 negative for PE Placed on mechanical ventilation overnight prior to surgery ABG this morning of pH 7.36, PCO2 of 40, PO2 of 66, and HCO3 of 22 with an O2 saturation 92% Cumulative I&Os of +8038.6 -Patient adjusted to title volume of 40, PEEP of 10, and FiO2 of 60%. -Repeat ABG in the morning -Pt currently on NE when pt is weaned from pressors and off for 6 hours will start diuresis -Continue mechanical ventilatory support and attempt to wean pt from ventilator with SBT as pt improves -Sputum culture ordered -On Cefepime day 1 (2) STEMI (ST elevation myocardial infarction) Current Visit: Yes Status: Resolved Patient with PCI to LAD on 06/21/19 Currently on Aggrastat Cardiology consulted -Plan to continue Aggrastat and convert ASA to rectal dosing. -We will transition to Plavix when patient is able to take by mouth medications. Qualifiers: Involved coronary artery: LAD coronary artery Qualified Code(s): I21.02 - ST elevation (STEMI) myocardial infarction involving left anterior descending coronary artery (3) Small bowel obstruction Current Visit: Yes Status: Resolved Patient admitted for small bowel obstruction on 06/20/19 NG tube was inserted patient was put on bowel rest without resolution of SBO Patient taken for bowel resection on 06/24/19 Sepsis protocol initiated and patient received recommended 30 mils per kilogram IV fluid resuscitation. Blood cultures pending Lactic acid of 1.2 -Postop day 1 -NPO -Cefepime and Flagyl abx therapy (4) DVT prophylaxis Current Visit: Yes Status: Acute SCDs in place History of Present Illness Consult date: 06/25/19 History of present illness: 83F with significant PMH of hypertension and hernia repair presented to the ED on 06/20 with acute onset of crampy abdominal pain, nausea, and vomiting for 1 day. In the ED patient was found to have a SBO on CT. Surgery was consulted at that time and conservative management was started with patient getting it in G- tube placement placed nothing by mouth and IV fluids were started. At that time patient was seen to have mild ST elevation in leads V1, V2, and V3 on EKG with an initial negative troponins x2. Patient's third troponin came back as 30.41 with a repeat of 32.9 after this without chest pain. Echo from 06/21 shows hypokinetic tijer[place] in the apex, a pickle inferior, apical septal, and mid anterior septum. Patient was taken to the [facility] and had a stent placed in the proximal LAD on 06/21. Over the next few days of continued monitoring of patient for SBO with conservative measures due to patient being on dual antiplatelet therapy post stenting a new KUB found an acute small bowel obstruction in the mid ileum a small bowel follow-through was performed on 06/23. On 06/24 patient was transferred to the ICU due to hemodynamic instability secondary to his the small bowel obstruction. Patient was given fluid resuscitation that she did respond to. Patient at that time was a DNR arrest/DNI, but family and patient were amicable to short-term intubation with surgery planned by Dr. Santos. Due to patient's hemodynamic instability at that time a right IJ CVC was placed. Patient was then taken to surgery on 06/24 and a short segment small bowel resection was performed. Patient was then brought back to the ICU and is currently on the ventilator. Past Med Surg Social Fam HX - Past Medical History Medical history: cancer, CVA, hypertension, renal disease, TIA, other Additional medical history: breast cancer Psychiatric history: no psych history - Past Surgical History Surgical History: herniorrhaphy, other Additional surgical history: kidney stone removed L kidney, hernia repair, tubal ligation left lumpectomy, d&c, carpal tunnel, lithotripsy, bilateral breast bx, parthyroidectomy, tyroid nodule and parathyroid, left breast cancer. - Social History Smoking Status: Former smoker Smokeless Tobacco Status: No Alcohol use: none Drug use: none - Family History Father Hx Family Cardiac Disorders: Yes Medications and Allergies Aspirin 81 mg PO QPM 08/04/15 [History] Losartan/Hydrochlorothiazide [Hyzaar 100-12.5 Tablet] 1 each PO QPM 08/04/15 [History] Loratadine [Claritin] 10 mg PO DAILY 08/23/18 [History] Tolterodine Tartrate [Detrol] 2 mg PO BID 09/25/18 [History] Cholecalciferol (D-3) [Vitamin D] 2,000 units PO QAM 06/20/19 [History] Metoprolol Succinate [Toprol Xl] 25 mg PO QAM 06/20/19 [History] Multivit-Min/Iron/Folic/Lutein [Centrum Silver Women Tablet] 1 tab PO QPM 06/20/19 [History] Omeprazole 20 mg PO QAM 06/20/19 [History] PARoxetine HCl [Paroxetine HCl] 20 mg PO QAM 06/20/19 [History] Allergy/AdvReac Type Severity Reaction Status Date / Time Iodinated Contrast Media AdvReac Hives Verified 06/20/19 21:06 Penicillins [PCN] AdvReac Hives Verified 06/20/19 21:06 [id number] Reductase AdvReac Muscle Pain Verified 06/20/19 21:06 Inhibitor [Statins] ROS unobtainable: due to endotracheal tube All Systems: The remainder of the systems were reviewed and are negative Physical Examination Vital Signs: Vital Signs, Last 4 Hours Temp Pulse Resp BP Pulse Ox 06/25/19 08:59 12 95/53 92 06/25/19 07:32 98.0 F 06/25/19 07:25 12 92 06/25/19 07:00 112 14 82/54 91 06/25/19 06:00 111 12 82/54 91 06/25/19 05:17 13 81/53 91 General appearance: no acute distress Eyes: nonicteric ENT: other (ET tube in place) Neck: no lymphadenopathy, no JVD ( ) Effort: normal Inspection: normal Auscultation: bilateral: clear Cardiovascular: other (Sinus Tachycardia at ~110) Gastrointestinal: soft, non-distended Integumentary: normal Extremities: no cyanosis, pulses normal, other (Restraints in place over the BUE and SCDs in Place over BLE. No evidence of LE edema) Musculoskeletal: no deformities unable to assess due to mental status Ventilator Settings Ventilator Settings: Ventilator Settings, Last 8 Hours Ventilator Tidal Volume 600 Setting Ventilator Tidal Volume 600 Setting Ventilator Tidal Volume 600 Setting Ventilator Tidal Volume 600 Setting Ventilator Tidal Volume 600 Setting Ventilator Tidal Volume 600 Setting Ventilator Tidal Volume 600 Setting Ventilator Tidal Volume 600 Setting Ventilator Tidal Volume 600 Setting Ventilator Tidal Volume 600 Setting Ventilator Tidal Volume 600 Setting Ventilator Tidal Volume 600 Setting Ventilator Respiratory Rate 12 Setting Ventilator Respiratory Rate 12 Setting Ventilator Respiratory Rate 12 Setting Ventilator Respiratory Rate 12 Setting Ventilator Respiratory Rate 12 Setting Ventilator Respiratory Rate 12 Setting Ventilator Respiratory Rate 12 Setting Ventilator Respiratory Rate 12 Setting Ventilator Respiratory Rate 12 Setting Ventilator Respiratory Rate 12 Setting Ventilator Respiratory Rate 12 Setting Ventilator Respiratory Rate 12 Setting Actual Respiratory Rate 12 Actual Respiratory Rate 12 Actual Respiratory Rate 12 Actual Respiratory Rate 13 Actual Respiratory Rate 13 Actual Respiratory Rate 15 Actual Respiratory Rate 13 Actual Respiratory Rate 14 Actual Respiratory Rate 14 Actual Respiratory Rate 12 Positive End Expiratory 5 Pressure Positive End Expiratory 5 Pressure Positive End Expiratory 5 Pressure Positive End Expiratory 5 Pressure Positive End Expiratory 5 Pressure Positive End Expiratory 5 Pressure Positive End Expiratory 5 Pressure Positive End Expiratory 5 Pressure Positive End Expiratory 5 Pressure Positive End Expiratory 5 Pressure Positive End Expiratory 5 Pressure Positive End Expiratory 5 Pressure Peak Inspiratory Airway 21 Pressure Peak Inspiratory Airway 20 Pressure Peak Inspiratory Airway 19 Pressure Peak Inspiratory Airway 19 Pressure Peak Inspiratory Airway 19 Pressure Peak Inspiratory Airway 21 Pressure Peak Inspiratory Airway 20 Pressure Peak Inspiratory Airway 20 Pressure Peak Inspiratory Airway 22 Pressure Peak Inspiratory Airway 22 Pressure Peak Inspiratory Airway 22 Pressure Results - Laboratory Findings CBC and BMP: 06/25/19 03:01 06/25/19 03:01 ABG ABG pH 7.37 pH Units (7.32-7.45) 06/25/19 04:29 ABG pCO2 39 mmHg (35-45) 06/25/19 04:29 ABG pO2 68 mmHg (85-104) L 06/25/19 04:29 ABG O2 Saturation 93 % (95-98) L 06/25/19 04:29 PT/INR, D-dimer PT 13.8 Seconds (9.4-12.1) H 06/24/19 14:04 D-Dimer 1475 ng/mLFEU (0-500) H 06/20/19 09:58 Abnormal lab findings: Abnormal lab results WBC 18.3 K/mcL (4.3-11.1) H 06/25/19 03:01 RBC 3.68 M/mcL (3.82-4.97) L 06/25/19 03:01 Hgb 15.6 g/dL (11.5-15.4) H 06/24/19 07:15 Hct 48.4 % (35.3-44.9) H 06/24/19 07:15 MCV 104.3 fL (83.0-100.0) H 06/25/19 03:01 MCHC 30.7 g/dL (31.6-35.5) L 06/25/19 03:01 Neutrophils # 16.8 K/mcL (1.6-8.9) H 06/25/19 03:01 Lymphocytes # 0.4 K/mcL (0.6-4.6) L 06/25/19 03:01 PT 13.8 Seconds (9.4-12.1) H 06/24/19 14:04 D-Dimer 1475 ng/mLFEU (0-500) H 06/20/19 09:58 Heparin Anti-Xa, Unfract 0.04 IU/mL (0.30-0.70) L 06/24/19 14:04 ABG pO2 68 mmHg (85-104) L 06/25/19 04:29 ABG O2 Saturation 93 % (95-98) L 06/25/19 04:29 Sodium 148 mEq/L (136-145) H 06/25/19 03:01 Potassium 3.4 mEq/L (3.5-5.1) L 06/24/19 14:46 Chloride 118 mEq/L (98-107) H 06/25/19 03:01 Carbon Dioxide 20 mEq/L (23-29) L 06/20/19 15:59 BUN 25 mg/dL (8-23) H 06/25/19 03:01 Est GFR (Non-Af Amer) 53 (> 60) L 06/25/19 03:01 BUN/Creatinine Ratio 30 (6-26) H 06/24/19 14:46 Glucose 144 mg/dL (70-105) H 06/25/19 03:01 POC Glucose 129 mg/dL (70-99) H 06/24/19 23:42 Calculated Osmolality 313 (280-300) H 06/25/19 03:01 Lactic Acid 3.5 mmol/L (0.5-2.2) H 06/20/19 17:10 Calcium 8.2 mg/dL (8.6-10.3) L 06/25/19 03:01 Troponin I 32.90 ng/mL (< 0.04) H* 06/21/19 17:12 Serum Total Protein 5.3 g/dL (6.4-8.9) L 06/25/19 03:01 Albumin 2.8 g/dL (3.5-5.7) L 06/25/19 03:01 - Microbiology Findings Microbiology Findings: Microbiology, Last 48 Hours 06/24/19 14:29 Blood Culture - Preliminary Peripheral Venipuncture Culture is incubating and being continuously monitored for growth. Final report to follow. 06/24/19 12:24 Blood Culture - Preliminary Peripheral Venipuncture Culture is incubating and being continuously monitored for growth. Final report to follow. - Clinical Findings Intake & Output: Intake & Output 06/24/19 06/25/19 06/25/19 23:59 07:59 15:59 Intake Total 1928.1 / 6578.1 1658.3 / 1658.3 Output Total 420 / 3180 182 / 182 Balance 1508.1 / 3398.1 1476.3 / 1476.3 Weight 127.2 kg Consult Discharge Plan - Plan Referrals: Juan Randall DO [Primary Care Provider] - <Dani Adams - Last Filed: 06/25/19 23:17> Date of Encounter: 06/25/19 All Systems: The remainder of the systems were reviewed and are negative Physical Examination Vital Signs: Vital Signs, Last 4 Hours Temp Pulse Resp BP Pulse Ox 06/25/19 23:00 126 19 107/69 95 06/25/19 22:00 111 20 108/62 95 06/25/19 21:52 19 106/59 95 06/25/19 21:00 109 20 96/61 95 06/25/19 20:00 124 21 105/64 94 06/25/19 19:56 22 101/66 95 06/25/19 19:17 99.9 F H 06/25/19 19:15 127 Ventilator Settings Ventilator Settings: Ventilator Settings, Last 8 Hours Ventilator Tidal Volume 400 Setting Ventilator Tidal Volume 400 Setting Ventilator Tidal Volume 400 Setting Ventilator Tidal Volume 400 Setting Ventilator Tidal Volume 400 Setting Ventilator Tidal Volume 400 Setting Ventilator Tidal Volume 400 Setting Ventilator Tidal Volume 400 Setting Ventilator Tidal Volume 400 Setting Ventilator Tidal Volume 400 Setting Ventilator Tidal Volume 400 Setting Ventilator Respiratory Rate 18 Setting Ventilator Respiratory Rate 18 Setting Ventilator Respiratory Rate 18 Setting Ventilator Respiratory Rate 18 Setting Ventilator Respiratory Rate 18 Setting Ventilator Respiratory Rate 18 Setting Ventilator Respiratory Rate 18 Setting Ventilator Respiratory Rate 18 Setting Ventilator Respiratory Rate 18 Setting Ventilator Respiratory Rate 18 Setting Ventilator Respiratory Rate 18 Setting Actual Respiratory Rate 19 Actual Respiratory Rate 20 Actual Respiratory Rate 21 Actual Respiratory Rate 20 Actual Respiratory Rate 21 Actual Respiratory Rate 19 Actual Respiratory Rate 20 Actual Respiratory Rate 18 Positive End Expiratory 10 Pressure Positive End Expiratory 10 Pressure Positive End Expiratory 10 Pressure Positive End Expiratory 10 Pressure Positive End Expiratory 10 Pressure Positive End Expiratory 10 Pressure Positive End Expiratory 10 Pressure Positive End Expiratory 8 Pressure Positive End Expiratory 10 Pressure Positive End Expiratory 8 Pressure Positive End Expiratory 8 Pressure Peak Inspiratory Airway 18 Pressure Peak Inspiratory Airway 21 Pressure Peak Inspiratory Airway 21 Pressure Peak Inspiratory Airway 23 Pressure Peak Inspiratory Airway 21 Pressure Peak Inspiratory Airway 18 Pressure Peak Inspiratory Airway 23 Pressure Peak Inspiratory Airway 20 Pressure Peak Inspiratory Airway 20 Pressure Peak Inspiratory Airway 21 Pressure Results - Laboratory Findings CBC and BMP: 06/25/19 16:00 06/25/19 03:01 ABG ABG pH 7.36 pH Units (7.32-7.45) 06/25/19 13:11 ABG pCO2 40 mmHg (35-45) 06/25/19 13:11 ABG pO2 66 mmHg (85-104) L 06/25/19 13:11 ABG O2 Saturation 92 % (95-98) L 06/25/19 13:11 PT/INR, D-dimer PT 13.8 Seconds (9.4-12.1) H 06/24/19 14:04 D-Dimer 1475 ng/mLFEU (0-500) H 06/20/19 09:58 Abnormal lab findings: Abnormal lab results WBC 23.4 K/mcL (4.3-11.1) H 06/25/19 16:00 RBC 3.37 M/mcL (3.82-4.97) L 06/25/19 16:00 Hgb 10.9 g/dL (11.5-15.4) L 06/25/19 16:00 Hct 48.4 % (35.3-44.9) H 06/24/19 07:15 MCV 105.9 fL (83.0-100.0) H 06/25/19 16:00 MCHC 30.5 g/dL (31.6-35.5) L 06/25/19 16:00 Neutrophils # 16.8 K/mcL (1.6-8.9) H 06/25/19 03:01 Lymphocytes # 0.4 K/mcL (0.6-4.6) L 06/25/19 03:01 PT 13.8 Seconds (9.4-12.1) H 06/24/19 14:04 D-Dimer 1475 ng/mLFEU (0-500) H 06/20/19 09:58 Heparin Anti-Xa, Unfract 0.04 IU/mL (0.30-0.70) L 06/24/19 14:04 ABG pO2 66 mmHg (85-104) L 06/25/19 13:11 ABG O2 Saturation 92 % (95-98) L 06/25/19 13:11 ABG Base Excess -3 mEq/L (-2 to 3) L 06/25/19 13:11 Sodium 148 mEq/L (136-145) H 06/25/19 03:01 Potassium 3.4 mEq/L (3.5-5.1) L 06/24/19 14:46 Chloride 118 mEq/L (98-107) H 06/25/19 03:01 Carbon Dioxide 20 mEq/L (23-29) L 06/20/19 15:59 BUN 25 mg/dL (8-23) H 06/25/19 03:01 Est GFR (Non-Af Amer) 53 (> 60) L 06/25/19 03:01 BUN/Creatinine Ratio 30 (6-26) H 06/24/19 14:46 Glucose 144 mg/dL (70-105) H 06/25/19 03:01 POC Glucose 129 mg/dL (70-99) H 06/24/19 23:42 Calculated Osmolality 313 (280-300) H 06/25/19 03:01 Lactic Acid 3.5 mmol/L (0.5-2.2) H 06/20/19 17:10 Calcium 8.2 mg/dL (8.6-10.3) L 06/25/19 03:01 Troponin I 32.90 ng/mL (< 0.04) H* 06/21/19 17:12 Serum Total Protein 5.3 g/dL (6.4-8.9) L 06/25/19 03:01 Albumin 2.8 g/dL (3.5-5.7) L 06/25/19 03:01 - Microbiology Findings Microbiology Findings: Microbiology, Last 48 Hours 06/25/19 11:51 Sputum Culture - Preliminary Aspirate 06/24/19 14:29 Blood Culture - Preliminary Peripheral Venipuncture Culture is incubating and being continuously monitored for growth. Final report to follow. 06/24/19 12:24 Blood Culture - Preliminary Peripheral Venipuncture Culture is incubating and being continuously monitored for growth. Final report to follow. - Clinical Findings Intake & Output: Intake & Output 06/25/19 06/25/19 06/25/19 07:59 15:59 23:59 Intake Total 1658.3 / 4195.0 883.4 / 4195.0 1653.3 / 4195.0 Output Total 182 / 297 0 / 297 115 / 297 Balance 1476.3 / 3898.0 883.4 / 3898.0 1538.3 / 3898.0 Weight 127.2 kg - Attending Attestation I saw and evaluated this patient and my medical decision-making was reviewed with the Resident Physician. I agree with the documented findings, disposition and treatment plan as described except to the extent set forth below. We independently had [id number] contact with the patient I spent 50 minutes of Critical Care time with this patient. It involved decision making of high complexity to assess, manipulate, and support vital organ system failure and/or to prevent further life threatening deterioration of the patient's condition. The time involved in the performance of separately reportable procedures was not counted toward critical care time. Patient seen and examined at bedside Labs, radiology, chart personally reviewed. Management was reviewed during multidisciplinary critical care rounds. 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 Pulm: Patient has requiring high FiO2 chest x-ray shows bilateral interstitial pulmonary edema slightly diastolic heart failure will increase the PEEP to 10 cm of water and decrease FiO2. Once V/Q mismatch is stable will come down on the PEEP to 8 the background diuresis hopefully she will be extubated in one or 2 days. Cards: Patient needing minimal dose of vasopressor therapy patient had STEMI with stent to the LAD to continue Aggrenox and rectal aspirin one she is taking by mouth we will change to aspirin and Plavix at that point to continue the current regimen and according to cardiology team. FEN-GI: Patient is nothing by mouth because of the small bowel obstruction nutrition according to surgery. Renal: Labs and output reviewed patient has hypernatremia and hypercholremia we will change the fluids to lactated Ringer ID: To cover with broad-spectrum antibiotics for intra-abdominal surgery Heme/Onc: Labs reviewed Endo: Glucose Monitored Integ/MSK: Skin Care per routine ICU Nursing Protocol to prevent ulcers. Lines: All lines examined without evidence of infection : Dispo: critically ill CODE: DNR CCA with intubation
[2019-06-25] MEDS: MetroNIDAZOLE 500 MG/100 ML 500 MG/100 ML BAG IVPB SCH ×3 (09:11→23:58)
[2019-06-25] MEDS: Ringers Solution, Lactated 1,000 ML IVC SCH ×2 (09:12→19:30)
[2019-06-25] MEDS: Norepinephrine 4 MG in 0.9 % Sodium Chloride 250 ML IVC SCH ×3 (09:13→20:24)
--- NOTE | 2019-06-25 10:06 | Electrocardiograph Report ---
[address] [place] [address] Test Date: 2019-06-20 Pat Name: Kellee Marrero Department: EXAM23 Room: 06 Gender: F Fresco Artist: : [id number] Requested By: Rodrick Muller Order Number: [id number] Reading MD: Brandon Cortes Measurements Intervals [place] Rate: 71 P: 71 LA: 159 QRS: 30 QRSD: 91 T: 68 QT: 407 QTc: 443 Interpretive Statements Sinus rhythm Multiple ventricular premature complexes Septal infarct, age undetermined Electronically Signed On 06-25-2019 10:05:34 EDT by Brandon Cortes
[2019-06-25] MEDS ORDERED: Dextrose Gel 15 GM/37.5 ML TUBE PO PRN ×2 (10:39)
[2019-06-25] MEDS ORDERED: *HR* Dextrose 50 % in Water (Syg) 50 ML SYRINGE IVP PRN (10:39)
[2019-06-25] MEDS ORDERED: D5% in Water 1,000 ML IVC PRN (10:39)
[2019-06-25] MEDS ORDERED: Artificial Tears SOLN 15 ML BOTTLE BOTH EYES PRN (10:42)
--- NOTE | 2019-06-25 11:09 | Cardiology Progress Note ---
Date of Encounter: 06/25/19 Time of Encounter: 11:30 Assessment and Plan (1) Small bowel obstruction Current Visit: Yes Status: Acute 1. S/P small bowel resection. Remains NPO with NG tube in place and mechanically ventilated. Management per primary service. (2) NSTEMI (non-ST elevated myocardial infarction) Current Visit: Yes Status: Acute 1. [facility] 06/21/19 successful PCTA/SKIP to prox LAD. No further ischemic changes noted. Recommended continue ASA and Plavix due to high risk of stent thrombosis. 2. Per Dr. 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 Dr. Harpal salazar started Aggrastat. Discussed with Pharmacy, Cangrelor not on formulary. Discussed with Dr. Cortes, will continue Aggrastat and will convert ASA rectal dose for now. Will need to monitor closely for instent re-thrombosis. 4. BB, ACEI off at moment-- recs to resume when able. Statin intolerant will need pravastatin (RX at DC). (3) Hypertension Current Visit: Yes Status: Chronic 1. Pt. transfered to ICU, mechanically ventilated and sedated. 2. Currently hypotensive SBP 80s-90s. BB and ACEI stopped per primary team. 2. Remains NPO pending surgery recs. Qualifiers: Hypertension type: essential hypertension Qualified Code(s): I10 - Essential (primary) hypertension Discussion w patient/family: The assessment and plan as outlined above was discussed with the patient and/or family members who expressed understanding and agreement. All questions were answered. Thank you for involving us in the care of your patient. Please call with any questions. Subjective Principal diagnosis: NSTEMI Interval history: Currently intubated and sedate. Objective Vital Signs, Last 4 Hours Temp Pulse Resp BP Pulse Ox 06/25/19 10:00 109 19 100/62 92 06/25/19 09:00 115 20 82/57 90 06/25/19 08:59 12 95/53 92 06/25/19 08:00 111 12 92/54 93 06/25/19 07:32 98.0 F 06/25/19 07:25 12 92 General: Conversant, No Apparent Distress HEENT: Atraumatic, Normocephaly, Mucus Membranes Moist Neck: No JVD, Normal carotid pulses Cardiac: Reg Rate and Rhythm, Normal S1 and S2, Other (mumur ) Lungs: Normal Breath Sounds, No Wheeze, Rales, Rhonchi Neuro: Alert and responsive, No focal deficits noted Abdomen: Soft, Non-Tender Skin: No rashes noted on visualized skin Musculoskeletal: No Chest Wall Tenderness Extremities: No Clubbing, No Cyanosis, No Edema, Normal Pulses Results 06/25/19 03:01 06/25/19 03:01 Lab Results Laboratory Tests 06/25/19 06/25/19 03:01 03:01 Hgb 11.8 Hct 38.4 Plt Count 233 BUN 25 H Creatinine 1.01 Est GFR (Non-Af Amer) 53 L Calculated Osmolality 313 H Selected Entries 06/25/19 10:00 Pulse Rate 109 Respiratory Rate 19 Blood Pressure 100/62 O2 Sat by Pulse Oximetry 92 Fraction of Inspired Oxygen % 60 Oxygen Delivery Method Mechanical Ventilation Selected Entries 06/25/19 05:00 06/25/19 05:17 06/25/19 06:00 Blood Pressure 81/53 81/53 82/54 06/25/19 07:00 06/25/19 08:00 06/25/19 08:59 Blood Pressure 82/54 92/54 95/53 06/25/19 09:00 06/25/19 10:00 Blood Pressure 82/57 100/62 Impressions Echocardiogram 06/21/19 12:02 Impressions: LVEF 40-45%. Normal LV chamber size. Basal sigmoid septum. Segmental left ventricular systolic dysfunction. Mild left ventricular diastolic dysfunction. There is no LV thrombus. Normal right ventricular structure and function. Moderately calcified aortic valve leaflets. Mild aortic stenosis by Doppler. Mean gradient 9 mmHg. Mild tricuspid regurgitation. Moderate pulmonary hypertension. Estimated RVSP is 54 mmHg. Left Ventricular Wall Motion: Rest Echo Findings The apex, apical inferior, apical septal and mid anterior septal [place] were hypokinetic. All other wall segments showed normal motion. Echocardiogram Limited Views 06/23/19 08:00 Impressions: LVEF 40-45%. Normal LV chamber size. Basal sigmoid septum. Segmental left ventricular systolic dysfunction. There is no LV thrombus. Normal right ventricular structure and function. Left Ventricular Wall Motion: Rest Echo Findings The apex, apical inferior, apical anterior, apical septal and mid anterior septal [place] were hypokinetic. All other wall segments showed normal motion. Active Medications Artificial Tears (Akwa Tears) 1 drop BOTH EYES Q2HR PRN; Protocol PRN Reason: Dry Eyes Stop: 12/25/19 10:43 Artificial Tears (Akwa Tears) 1 drop BOTH EYES Q4HR [facility]; Protocol Stop: 12/25/19 12:01 Aspirin (Aspirin) 81 mg PO DAILY [facility] Stop: 12/22/19 09:01 Last Admin: 06/25/19 09:11 Dose: Not Given Documented by: Chlorhexidine Gluconate (Chlorhexidine Rinse) 15 ml MM BID [facility] Stop: 12/25/19 21:01 Dextrose/Water (Dextrose 50% (Syg)) 25 ml IVP AD PRN PRN Reason: Hypoglycemia Stop: 12/25/19 10:40 Glucagon (Glucagen) 1 mg IM ONCE PRN PRN Reason: Hypoglycemia Stop: 12/25/19 10:40 Glucose (Gluctose) 15 gm PO ONCE PRN PRN Reason: Hypoglycemia Stop: 12/25/19 10:40 Glucose (Gluctose) 30 gm PO ONCE PRN PRN Reason: Hypoglycemia Stop: 12/25/19 10:40 Metronidazole (Flagyl Premix 500 Mg/100 Ml) 500 mg in 100 mls @ 100 mls/hr IVPB Q8HR [facility] Stop: 12/24/19 12:01 Last Infusion: 06/25/19 10:11 Dose: Infused Documented by: Tirofiban/Sodium Chloride (Aggrastat 12.5 Mg/250 Ml) 12.5 mg in 250 mls @ 11.394 mls/hr IVC .[id number] [facility] Stop: 12/24/19 20:31 Fentanyl Citrate 1,000 mcg/ (Sodium Chloride) 100 mls @ 2.5 mls/hr IVC CONT [facility]; Protocol Stop: 12/24/19 19:16 Midazolam HCl 50 mg/ Sodium (Chloride) 100 mls @ 4 mls/hr IVC CONT [facility]; Protocol Stop: 12/24/19 19:16 Last Titration: 06/25/19 10:54 Dose: 2 mg/hr, 4 mls/hr Documented by: Norepinephrine Bitartrate 4 mg (/ Sodium Chloride) 254 mls @ 19.05 mls/hr IVC CONT [facility]; Protocol Stop: 12/24/19 13:01 Lactated Ringer's (Lactated Ringers) 1,000 mls @ 100 mls/hr IVC .Q10H [facility] Stop: 12/25/19 08:01 Last Admin: 06/25/19 09:12 Dose: 100 mls/hr Documented by: Cefepime HCl 1,000 mg/ Sterile (Water) 10 mls @ 300 mls/hr IVP Q8HR [facility] Stop: 12/25/19 16:01 Dextrose (Dextrose 5%) 1,000 mls @ 100 mls/hr IVC .Q10H PRN PRN Reason: HYPOGLYCEMIA Stop: 12/25/19 10:40 Insulin Human Lispro (Humalog) 0 units SQ Q6HR [facility]; Protocol Stop: 12/25/19 12:01 Naloxone HCl (Narcan) 0.4 mg IVP Q2MPRN PRN PRN Reason: SEE COMMENTS Stop: 12/20/19 15:35 Nitroglycerin (Nitroglycerin) 0.4 mg SL Q5MPRN PRN PRN Reason: Chest Pain Stop: 12/22/19 13:43 Ondansetron HCl (Zofran) 4 mg IVP Q6HR PRN PRN Reason: Nausea And Vomiting Stop: 12/23/19 03:24 Oxycodone HCl (Oxycodone Oral Conc) 5 mg SL Q4H PRN; Protocol PRN Reason: mild to moderate pain Stop: 12/20/19 15:35 Oxycodone HCl (Oxycodone Oral Conc) 10 mg SL Q4H PRN; Protocol PRN Reason: Severe Pain Stop: 12/23/19 17:44 Pantoprazole Sodium (Protonix) 40 mg IVP Q12HR [facility] Stop: 12/25/19 18:01 Small Bowel X-Ray 06/23/19 08:20 IMPRESSION: 1. Findings compatible with an acute small-bowel obstruction in the mid ileum. 2. Moderate-sized hiatal hernia. Findings were discussed with William Santos MD at 7:00 pm on 06/23/2019. D/ / 06/23/2019 19:33:46 Humphrey Morales MD / [email or web address] Interpreting Provider: Humphrey Morales MD X-Ray 06/24/19 07:00 IMPRESSION: No significant change in findings consistent with small-bowel obstruction. Contrast remains within the small bowel. D/ / Darrin Snyder MD / Darrin Snyder MD Interpreting Provider: Darrin Snyder MD - Imaging and Cardiology Echo: report reviewed Cardiac cath: report reviewed - EKG Interpretation EKG results cardiology: sinus rhythm (frequent PVCS) Consult Discharge Plan - Plan Referrals: Juan Randall DO [Primary Care Provider] - HAS-BLED Score - Score Elderly: Age>65 years Medication usage predisposing to bleeding: Antiplatelet agents, NSAIDs, Anticoagulants Score: 2
[2019-06-25] MEDS: Artificial Tears SOLN 15 ML BOTTLE BOTH EYES SCH ×4 (11:49→23:59)
[2019-06-25] MEDS: Insulin LISPRO 300 UNITS/3 ML VIAL SQ SCH ×3 (11:50→23:59)
[2019-06-25] MEDS: Pantoprazole 40 MG VIAL IVP SCH ×2 (11:50→23:59)
[2019-06-25] MEDS: Cefepime HCl 1,000 MG in Water for inj. (sterile) 10 ML IVP SCH ×2 (11:52→20:19)
[2019-06-25 13:14] LABS: ABG Base Excess -3 mEq/L (-2 to 3); ABG HCO3 22 mEq/L (21-27); ABG Oxygen Saturation 92 % (95-98); ABG PCO2 40 mmHg (35-45); ABG PH 7.36 pH Units (7.32-7.45); ABG PO2 66 mmHg (85-104); ABG TCO2 24 mEq/L (20-26); Blood Gas PEEP 10 cm H2O; Blood Gas VT 400 cc
[2019-06-25] MEDS: Tirofiban 12.5 MG/250ML 12.5 MG/250 ML BAG IVC SCH ×2 (14:17→17:19)
--- NOTE | 2019-06-25 16:06 | Electrocardiograph Report ---
[address] [place] [address] Test Date: 2019-06-25 Pat Name: Kellee Marrero Department: 109 Room: [facility] Gender: F [employer] Consultant: : [id number] Requested By: Maranda See Order Number: [id number] Reading MD: Brandon Cortes Measurements Intervals [place] Rate: 107 P: 39 [place]: 133 QRS: -8 QRSD: 92 T: 59 QT: 334 QTc: 397 Interpretive Statements SINUS TACHYCARDIA POSSIBLE LEFT ATRIAL ENLARGEMENT ANTEROSEPTAL MYOCARDIAL INFARCTION, OF INDETERMINATE AGE Electronically Signed On 06-25-2019 16:04:48 EDT by Brandon Cortes
[2019-06-25 16:22] LABS: Hematocrit 35.7 % (35.3-44.9); Hemoglobin 10.9 g/dL (11.5-15.4); Mean Corpuscular HGB Conc 30.5 g/dL (31.6-35.5); Mean Corpuscular Hemoglobin 32.3 pg (28.0-33.3); Mean Corpuscular Volume 105.9 fL (83.0-100.0); Mean Platelet Volume 10.3 fL (9.4-12.4); Platelet Count 244 K/mcL (140-400); Red Blood Count 3.37 M/mcL (3.82-4.97); Red Cell Distribution Width 13.9 % (11.5-14.5); White Blood Count 23.4 K/mcL (4.3-11.1)
--- NOTE | 2019-06-25 16:55 | AcuteCareSurgery Progress Note ---
Date of Encounter: 06/25/19 Time of Encounter: 07:30 - Assessment and Plan (1) Small bowel obstruction Current Visit: Yes Status: Resolved POD#1 ex lap for SBR d/t Meckel's causing SBO. Continue ventilator management per critical care/pulmonology. Change abdominal incisional pressure dressing. Continue IV abx. PICC/TPN. (2) Hypertension Current Visit: Yes Status: Chronic Qualifiers: Hypertension type: essential hypertension Qualified Code(s): I10 - Essential (primary) hypertension (3) NSTEMI (non-ST elevated myocardial infarction) Current Visit: Yes Status: Acute s/p cath with stent. Pt is on Aggrastat. 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 Pt sedated on vent. Objective Vital Signs - Last 8 Hours Temp Pulse Resp BP Pulse Ox 06/25/19 16:00 99.7 F H 109 20 115/79 93 06/25/19 15:00 109 21 95/54 94 06/25/19 14:00 116 20 81/54 92 06/25/19 13:00 109 20 90/60 91 06/25/19 12:00 111 20 94/58 90 06/25/19 11:12 99.4 F 06/25/19 11:06 20 94/58 90 06/25/19 11:00 107 20 92/65 91 06/25/19 10:00 109 19 100/62 92 06/25/19 09:00 115 20 82/57 90 06/25/19 08:59 12 95/53 92 Intake and Output 06/25/19 06/25/19 06/25/19 07:59 15:59 23:59 Intake Total 1658.3 / 2541.7 883.4 / 2541.7 Output Total 182 / 297 0 / 297 115 / 297 Balance 1476.3 / 2244.7 883.4 / 2244.7 -115 / 2244.7 Intake: IV Fluids 1658.3 / 2541.7 883.4 / 2541.7 KCl 20 mEq in 0.9% Sodium 1000 / 1371 371 / 1371 Chloride 20 meq In 1,000 ml @ 100 mls/hr IVC .Q10H [facility] Rx#: [id number] FentaNYL (PF) 1,000 MCG In 0.9 138.0 / 200.0 62 / 200.0 % Sodium Chloride 80 ML @ 25 MCG/HR 2.5 mls/hr IVC CONT [facility] Rx#:[id number] Versed 50 MG In 0.9 % Sodium 81.8 / 145.2 63.4 / 145.2 Chloride 90 ML @ 2 MG/HR 4 mls/ hr IVC CONT [facility] Rx#:[id number] Levophed 4 MG In 0.9 % Sodium 127 / 127 Chloride 250 ML @ 5 MCG/MIN 19. 05 mls/hr IVC CONT [facility] Rx#: [id number] Aggrastat 12.5 MG/250 ML 12.5 88.5 / 88.5 mg In 250 ml @ 0.075 MCG/KG/MIN 11.394 mls/hr IVC .[id number] [facility] Rx#:[id number] Maxipime 1,000 MG In Water for inj. (sterile) 10 ML @ 300 mls/ hr IVP Q8H [facility] Rx#:[id number] Flagyl Premix 500 MG/100 ML 500 100 / 200 100 / 200 mg In 100 ml @ 100 mls/hr IVPB Q8HR [facility] Rx#:[id number] Vancocin 1,500 MG In 0.9 % 250 / 250 Sodium Chloride 250 ML @ 166.67 mls/hr IVPB Q12H [facility] Rx#: [id number] Levaquin Premix 750mg/150 mL 150 / 150 750 mg In 150 ml @ 100 mls/hr IVPB DAILY [facility] Rx#:[id number] Output: Catheter 82 / 97 0 / 97 15 / 97 Gastric Drainage 100 / 200 100 / 200 Other: Weight 127.2 kg Blood Glucose* 129 133 Patient Weight 06/25/19 23:59 Weight 127.2 kg - General physical appearance other (sedated on vent. SBP 80's) - Eyes pale - ENT no congestion, dry mucosa - Neck Neck exam: trachea midline - Respiratory normal respiratory effort, clear to auscultation - Cardiovascular Cardiovascular exam: Present: RRR. Absent: JVD - Abdomen Abdomen: Absent: bowel sounds present - Incision Incision: Present: intact (minimal bloody oozing) - Genitourinary normal external genitalia, other (maguire in place) - Neurologic other (sedated) - Labs 06/25/19 16:00 06/25/19 03:01 Diabetes panel 06/25/19 Range/Units 03:01 Sodium 148 H (136-145) mEq/L Potassium 3.8 (3.5-5.1) mEq/L Chloride 118 H (98-107) mEq/L Carbon Dioxide 24 (23-29) mEq/L BUN 25 H (8-23) mg/dL Creatinine 1.01 (0.60-1.20) mg/dL Glucose 144 H (70-105) mg/dL Calcium 8.2 L (8.6-10.3) mg/dL AST 22 (13-39) Units/L ALT 17 (7-52) Units/L Alkaline Phosphatase 45 (34-104) Units/L Albumin 2.8 L (3.5-5.7) g/dL Calcium panel 06/25/19 Range/Units 03:01 Calcium 8.2 L (8.6-10.3) mg/dL Albumin 2.8 L (3.5-5.7) g/dL Pituitary panel 06/25/19 Range/Units 03:01 Sodium 148 H (136-145) mEq/L Potassium 3.8 (3.5-5.1) mEq/L Chloride 118 H (98-107) mEq/L Carbon Dioxide 24 (23-29) mEq/L BUN 25 H (8-23) mg/dL Creatinine 1.01 (0.60-1.20) mg/dL Glucose 144 H (70-105) mg/dL Calcium 8.2 L (8.6-10.3) mg/dL Adrenal panel 06/25/19 Range/Units 03:01 Sodium 148 H (136-145) mEq/L Potassium 3.8 (3.5-5.1) mEq/L Chloride 118 H (98-107) mEq/L Carbon Dioxide 24 (23-29) mEq/L BUN 25 H (8-23) mg/dL Creatinine 1.01 (0.60-1.20) mg/dL Glucose 144 H (70-105) mg/dL Calcium 8.2 L (8.6-10.3) mg/dL Total Bilirubin 0.7 (0.3-1.0) mg/dL AST 22 (13-39) Units/L ALT 17 (7-52) Units/L Alkaline Phosphatase 45 (34-104) Units/L Albumin 2.8 L (3.5-5.7) g/dL Consult Discharge Plan - Plan Referrals: Juan Randall DO [Primary Care Provider] -
[2019-06-25] MEDS: Chlorhexidine Rinse 15 ML MOUTHWASH MM SCH (20:18)
[2019-06-26] MEDS: Artificial Tears SOLN 15 ML BOTTLE BOTH EYES SCH ×6 (04:25→23:34)
[2019-06-26] MEDS: Cefepime HCl 1,000 MG in Water for inj. (sterile) 10 ML IVP SCH (04:35)
[2019-06-26] MEDS: Ringers Solution, Lactated 1,000 ML IVC SCH (04:36)
[2019-06-26 04:44] LABS: Hematocrit 34.1 % (35.3-44.9); Hemoglobin 10.2 g/dL (11.5-15.4); Mean Corpuscular HGB Conc 29.9 g/dL (31.6-35.5); Mean Corpuscular Volume 106.9 fL (83.0-100.0); Mean Platelet Volume 10.5 fL (9.4-12.4); Platelet Count 233 K/mcL (140-400); Red Blood Count 3.19 M/mcL (3.82-4.97); Red Cell Distribution Width 14.2 % (11.5-14.5); White Blood Count 22.7 K/mcL (4.3-11.1)
[2019-06-26 05:01] LABS: Albumin 2.7 g/dL (3.5-5.7); Bilirubin,Total 0.6 mg/dL (0.3-1.0); Calcium 8.2 mg/dL (8.6-10.3); Globulin 2.7 g/dL (2.4-3.5); Potassium 3.8 mEq/L (3.5-5.1); Total Protein 5.4 g/dL (6.4-8.9)
[2019-06-26] MEDS: *HR* Metoprolol 5 MG/5 ML VIAL IVP PRN (05:11)
[2019-06-26] MEDS: FentaNYL (PF) 1,000 MCG in 0.9 % Sodium Chloride 80 ML IVC SCH ×3 (05:33→19:45)
[2019-06-26 05:52] LABS: ABG Base Excess -5 mEq/L (-2 to 3); ABG HCO3 22 mEq/L (21-27); ABG Oxygen Saturation 95 % (95-98); ABG PCO2 45 mmHg (35-45); ABG PH 7.29 pH Units (7.32-7.45); ABG PO2 82 mmHg (85-104); ABG TCO2 23 mEq/L (20-26); Blood Gas Modality ASSIST CONTROL; Blood Gas PEEP 10 cm H2O; Blood Gas VT 400 cc
[2019-06-26] MEDS: Insulin LISPRO 300 UNITS/3 ML VIAL SQ SCH ×4 (06:16→23:34)
--- NOTE | 2019-06-26 06:58 | Pulmonology Progress Note ---
<Corey Colon - Last Filed: 06/26/19 07:38> Date of Encounter: 06/26/19 Time of Encounter: 07:01 Assessment and Plan (1) Acute respiratory failure with hypoxia Current Visit: Yes Status: Acute ARDS versus CHF with fluid overload versus PNA WBC of 18.3 CTA 06/20/19 negative for PE Placed on mechanical ventilation overnight prior to surgery ABG this morning of pH 7.36, PCO2 of 40, PO2 of 66, and HCO3 of 22 with an O2 saturation 92% Cumulative I&Os of +10180.1 Repeat ABG with worsening metabolic acidosis -Patient adjusted to title volume of 40, PEEP of 10, and FiO2 of 40%. -Pt currently on NE when pt is weaned from pressors and off for 6 hours will start diuresis -Continue mechanical ventilatory support and attempt to wean pt from ventilator with SBT as pt improves -Sputum culture negative -On Cefepime day 2 (2) Oligouria Current Visit: Yes Status: Acute Pt with only 337 ml of output over the past 24 hours Original Celestin was taken out and had clotting at tip. Second Celestin placed which is allowing output. Retroperitoneal ultrasound performed with unremarkable kidneys and urinary bladder. No signs of distended bladder or hydronephrosis -UA ordered -Urine electrolytes ordered -We will monitor for results and consider nephrology consult if without improv ement. (3) STEMI (ST elevation myocardial infarction) Current Visit: Yes Status: Resolved Patient with PCI to LAD on 06/21/19 Currently on Aggrastat Cardiology consulted -Plan to continue Aggrastat and convert ASA to rectal dosing. -We will transition to Plavix when patient is able to take by mouth medications. Qualifiers: Involved coronary artery: LAD coronary artery Qualified Code(s): I21.02 - ST elevation (STEMI) myocardial infarction involving left anterior descending coronary artery (4) Small bowel obstruction Current Visit: Yes Status: Resolved Patient admitted for small bowel obstruction on 06/20/19 NG tube was inserted patient was put on bowel rest without resolution of SBO Patient taken for bowel resection on 06/24/19 Sepsis protocol initiated and patient received recommended 30 mils per kilogram IV fluid resuscitation. Blood cultures pending Lactic acid of 1.2 -Postop day 2 -NPO -Cefepime and Flagyl abx therapy (5) DVT prophylaxis Current Visit: Yes Status: Acute SCDs in place Subjective Principal diagnosis: NSTEMI Interval history: The patient currently intubated. Objective PUL Vital signs: Last Vital Signs Temp 99.5 F 06/26/19 04:39 Pulse 89 06/26/19 06:00 Resp 18 06/26/19 06:00 BP 105/62 06/26/19 06:00 Pulse Ox 95 06/26/19 06:00 Ventilator Settings Ventilator Settings: Ventilator Settings, Last 8 Hours Ventilator Tidal Volume 400 Setting Ventilator Tidal Volume 400 Setting Ventilator Tidal Volume 400 Setting Ventilator Tidal Volume 400 Setting Ventilator Tidal Volume 400 Setting Ventilator Tidal Volume 400 Setting Ventilator Tidal Volume 400 Setting Ventilator Tidal Volume 400 Setting Ventilator Tidal Volume 400 Setting Ventilator Tidal Volume 400 Setting Ventilator Tidal Volume 400 Setting Ventilator Tidal Volume 400 Setting Ventilator Tidal Volume 400 Setting Ventilator Respiratory Rate 18 Setting Ventilator Respiratory Rate 18 Setting Ventilator Respiratory Rate 18 Setting Ventilator Respiratory Rate 18 Setting Ventilator Respiratory Rate 18 Setting Ventilator Respiratory Rate 18 Setting Ventilator Respiratory Rate 18 Setting Ventilator Respiratory Rate 18 Setting Ventilator Respiratory Rate 18 Setting Ventilator Respiratory Rate 18 Setting Ventilator Respiratory Rate 18 Setting Ventilator Respiratory Rate 18 Setting Ventilator Respiratory Rate 18 Setting Actual Respiratory Rate 18 Actual Respiratory Rate 18 Actual Respiratory Rate 20 Actual Respiratory Rate 20 Actual Respiratory Rate 20 Actual Respiratory Rate 20 Actual Respiratory Rate 20 Actual Respiratory Rate 18 Actual Respiratory Rate 19 Actual Respiratory Rate 19 Actual Respiratory Rate 21 Actual Respiratory Rate 19 Positive End Expiratory 10 Pressure Positive End Expiratory 10 Pressure Positive End Expiratory 10 Pressure Positive End Expiratory 10 Pressure Positive End Expiratory 10 Pressure Positive End Expiratory 10 Pressure Positive End Expiratory 10 Pressure Positive End Expiratory 10 Pressure Positive End Expiratory 10 Pressure Positive End Expiratory 10 Pressure Positive End Expiratory 10 Pressure Positive End Expiratory 10 Pressure Positive End Expiratory 10 Pressure Peak Inspiratory Airway 20 Pressure Peak Inspiratory Airway 21 Pressure Peak Inspiratory Airway 21 Pressure Peak Inspiratory Airway 22 Pressure Peak Inspiratory Airway 22 Pressure Peak Inspiratory Airway 22 Pressure Peak Inspiratory Airway 22 Pressure Peak Inspiratory Airway 21 Pressure Peak Inspiratory Airway 21 Pressure Peak Inspiratory Airway 21 Pressure Peak Inspiratory Airway 22 Pressure Peak Inspiratory Airway 18 Pressure Results - Laboratory Findings CBC and BMP: 06/26/19 04:19 06/26/19 04:19 ABG ABG pH 7.29 pH Units (7.32-7.45) L 06/26/19 05:49 ABG pCO2 45 mmHg (35-45) 06/26/19 05:49 ABG pO2 82 mmHg (85-104) L 06/26/19 05:49 ABG O2 Saturation 95 % (95-98) 06/26/19 05:49 PT/INR, D-dimer PT 13.8 Seconds (9.4-12.1) H 06/24/19 14:04 D-Dimer 1475 ng/mLFEU (0-500) H 06/20/19 09:58 Abnormal lab findings: Abnormal lab results WBC 22.7 K/mcL (4.3-11.1) H 06/26/19 04:19 RBC 3.19 M/mcL (3.82-4.97) L 06/26/19 04:19 Hgb 10.2 g/dL (11.5-15.4) L 06/26/19 04:19 Hct 34.1 % (35.3-44.9) L 06/26/19 04:19 MCV 106.9 fL (83.0-100.0) H 06/26/19 04:19 MCHC 29.9 g/dL (31.6-35.5) L 06/26/19 04:19 Neutrophils # 16.8 K/mcL (1.6-8.9) H 06/25/19 03:01 Lymphocytes # 0.4 K/mcL (0.6-4.6) L 06/25/19 03:01 PT 13.8 Seconds (9.4-12.1) H 06/24/19 14:04 D-Dimer 1475 ng/mLFEU (0-500) H 06/20/19 09:58 Heparin Anti-Xa, Unfract 0.04 IU/mL (0.30-0.70) L 06/24/19 14:04 ABG pH 7.29 pH Units (7.32-7.45) L 06/26/19 05:49 ABG pO2 82 mmHg (85-104) L 06/26/19 05:49 ABG O2 Saturation 92 % (95-98) L 06/25/19 13:11 ABG Base Excess -5 mEq/L (-2 to 3) L 06/26/19 05:49 Sodium 148 mEq/L (136-145) H 06/26/19 04:19 Potassium 3.4 mEq/L (3.5-5.1) L 06/24/19 14:46 Chloride 119 mEq/L (98-107) H 06/26/19 04:19 Carbon Dioxide 19 mEq/L (23-29) L 06/26/19 04:19 BUN 41 mg/dL (8-23) H 06/26/19 04:19 Creatinine 2.43 mg/dL (0.60-1.20) H 06/26/19 04:19 Est GFR ( Amer) 23 (> 60) L 06/26/19 04:19 Est GFR (Non-Af Amer) 19 (> 60) L 06/26/19 04:19 BUN/Creatinine Ratio 30 (6-26) H 06/24/19 14:46 Glucose 116 mg/dL (70-105) H 06/26/19 04:19 POC Glucose 121 mg/dL (70-99) H 06/25/19 23:33 Calculated Osmolality 317 (280-300) H 06/26/19 04:19 Lactic Acid 3.5 mmol/L (0.5-2.2) H 06/20/19 17:10 Calcium 8.2 mg/dL (8.6-10.3) L 06/26/19 04:19 Troponin I 32.90 ng/mL (< 0.04) H* 06/21/19 17:12 Serum Total Protein 5.4 g/dL (6.4-8.9) L 06/26/19 04:19 Albumin 2.7 g/dL (3.5-5.7) L 06/26/19 04:19 Albumin/Globulin Ratio 1.0 (1.1-2.2) L 06/26/19 04:19 - Microbiology Findings Microbiology Findings: Microbiology, Last 48 Hours 06/25/19 11:51 Sputum Culture - Preliminary Aspirate 06/24/19 14:29 Blood Culture - Preliminary Peripheral Venipuncture Culture is incubating and being continuously monitored for growth. Final report to follow. 06/24/19 12:24 Blood Culture - Preliminary Peripheral Venipuncture Culture is incubating and being continuously monitored for growth. Final report to follow. - Clinical Findings Intake & Output: Intake & Output 06/25/19 06/25/19 06/26/19 15:59 23:59 07:59 Intake Total 883.4 / 4195.0 1653.3 / 4195.0 1310 / 1310 Output Total 0 / 302 120 / 302 Balance 883.4 / 3893.0 1533.3 / 3893.0 1300 / 1300 Weight 136.7 kg Consult Discharge Plan - Plan Referrals: Juan Randall DO [Primary Care Provider] - <Dani Adams - Last Filed: 06/26/19 20:52> Date of Encounter: 06/26/19 Objective PUL Vital signs: Last Vital Signs Temp 99.3 F 06/26/19 20:00 Pulse 87 06/26/19 20:00 Resp 18 06/26/19 20:11 BP 120/60 06/26/19 20:00 Pulse Ox 89 06/26/19 20:11 Ventilator Settings Ventilator Settings: Ventilator Settings, Last 8 Hours Ventilator Tidal Volume 400 Setting Ventilator Tidal Volume 400 Setting Ventilator Tidal Volume 400 Setting Ventilator Tidal Volume 400 Setting Ventilator Tidal Volume 400 Setting Ventilator Tidal Volume 400 Setting Ventilator Tidal Volume 400 Setting Ventilator Tidal Volume 400 Setting Ventilator Tidal Volume 400 Setting Ventilator Tidal Volume 400 Setting Ventilator Tidal Volume 400 Setting Ventilator Tidal Volume 400 Setting Ventilator Respiratory Rate 18 Setting Ventilator Respiratory Rate 18 Setting Ventilator Respiratory Rate 18 Setting Ventilator Respiratory Rate 18 Setting Ventilator Respiratory Rate 18 Setting Ventilator Respiratory Rate 18 Setting Ventilator Respiratory Rate 18 Setting Ventilator Respiratory Rate 18 Setting Ventilator Respiratory Rate 18 Setting Ventilator Respiratory Rate 18 Setting Ventilator Respiratory Rate 18 Setting Ventilator Respiratory Rate 18 Setting Actual Respiratory Rate 18 Actual Respiratory Rate 18 Actual Respiratory Rate 20 Actual Respiratory Rate 18 Actual Respiratory Rate 18 Actual Respiratory Rate 18 Actual Respiratory Rate 18 Actual Respiratory Rate 18 Actual Respiratory Rate 18 Actual Respiratory Rate 18 Actual Respiratory Rate 18 Actual Respiratory Rate 18 Positive End Expiratory 10 Pressure Positive End Expiratory 10 Pressure Positive End Expiratory 10 Pressure Positive End Expiratory 10 Pressure Positive End Expiratory 10 Pressure Positive End Expiratory 10 Pressure Positive End Expiratory 10 Pressure Positive End Expiratory 10 Pressure Positive End Expiratory 10 Pressure Positive End Expiratory 10 Pressure Positive End Expiratory 10 Pressure Positive End Expiratory 10 Pressure Peak Inspiratory Airway 24 Pressure Peak Inspiratory Airway 24 Pressure Peak Inspiratory Airway 24 Pressure Peak Inspiratory Airway 22 Pressure Peak Inspiratory Airway 22 Pressure Peak Inspiratory Airway 23 Pressure Peak Inspiratory Airway 22 Pressure Peak Inspiratory Airway 23 Pressure Peak Inspiratory Airway 25 Pressure Peak Inspiratory Airway 25 Pressure Peak Inspiratory Airway 22 Pressure Peak Inspiratory Airway 21 Pressure Results - Laboratory Findings CBC and BMP: 06/26/19 04:19 06/26/19 17:20 ABG ABG pH 7.29 pH Units (7.32-7.45) L 06/26/19 05:49 ABG pCO2 45 mmHg (35-45) 06/26/19 05:49 ABG pO2 82 mmHg (85-104) L 06/26/19 05:49 ABG O2 Saturation 95 % (95-98) 06/26/19 05:49 PT/INR, D-dimer PT 13.8 Seconds (9.4-12.1) H 06/24/19 14:04 D-Dimer 1475 ng/mLFEU (0-500) H 06/20/19 09:58 Abnormal lab findings: Abnormal lab results WBC 22.7 K/mcL (4.3-11.1) H 06/26/19 04:19 RBC 3.19 M/mcL (3.82-4.97) L 06/26/19 04:19 Hgb 10.2 g/dL (11.5-15.4) L 06/26/19 04:19 Hct 34.1 % (35.3-44.9) L 06/26/19 04:19 MCV 106.9 fL (83.0-100.0) H 06/26/19 04:19 MCHC 29.9 g/dL (31.6-35.5) L 06/26/19 04:19 Neutrophils # 16.8 K/mcL (1.6-8.9) H 06/25/19 03:01 Lymphocytes # 0.4 K/mcL (0.6-4.6) L 06/25/19 03:01 PT 13.8 Seconds (9.4-12.1) H 06/24/19 14:04 D-Dimer 1475 ng/mLFEU (0-500) H 06/20/19 09:58 Heparin Anti-Xa, Unfract 0.04 IU/mL (0.30-0.70) L 06/24/19 14:04 ABG pH 7.29 pH Units (7.32-7.45) L 06/26/19 05:49 ABG pO2 82 mmHg (85-104) L 06/26/19 05:49 ABG O2 Saturation 92 % (95-98) L 06/25/19 13:11 ABG Base Excess -5 mEq/L (-2 to 3) L 06/26/19 05:49 Sodium 149 mEq/L (136-145) H 06/26/19 17:20 Potassium 3.4 mEq/L (3.5-5.1) L 06/24/19 14:46 Chloride 117 mEq/L (98-107) H 06/26/19 17:20 Carbon Dioxide 19 mEq/L (23-29) L 06/26/19 04:19 BUN 47 mg/dL (8-23) H 06/26/19 17:20 Creatinine 2.92 mg/dL (0.60-1.20) H 06/26/19 17:20 Est GFR ( Amer) 19 (> 60) L 06/26/19 17:20 Est GFR (Non-Af Amer) 15 (> 60) L 06/26/19 17:20 BUN/Creatinine Ratio 30 (6-26) H 06/24/19 14:46 Glucose 143 mg/dL (70-105) H 06/26/19 17:20 POC Glucose 121 mg/dL (70-99) H 06/25/19 23:33 Calculated Osmolality 323 (280-300) H 06/26/19 17:20 Lactic Acid 3.5 mmol/L (0.5-2.2) H 06/20/19 17:10 Uric Acid 8.8 mg/dL (2.3-7.6) H 06/26/19 17:20 Calcium 8.2 mg/dL (8.6-10.3) L 06/26/19 04:19 Creatine Kinase 239 Units/L (30-223) H 06/26/19 17:20 Troponin I 32.90 ng/mL (< 0.04) H* 06/21/19 17:12 Serum Total Protein 5.4 g/dL (6.4-8.9) L 06/26/19 04:19 Albumin 2.7 g/dL (3.5-5.7) L 06/26/19 04:19 Albumin/Globulin Ratio 1.0 (1.1-2.2) L 06/26/19 04:19 Hep Bs Antibody 3.39 mIU/mL (10.00-) L 06/26/19 17:20 - Microbiology Findings Microbiology Findings: Microbiology, Last 48 Hours 06/25/19 11:51 Sputum Culture - Preliminary Aspirate - Clinical Findings Intake & Output: Intake & Output 06/26/19 06/26/19 06/26/19 07:59 15:59 23:59 Intake Total 1564 / 3979 805 / 3979 1610 / 3979 Output Total 35 / 35 0 / 35 Balance 1529 / 3944 805 / 3944 1610 / 3944 - Attending Attestation - Attending Attestation I saw and evaluated this patient and my medical decision-making was reviewed with the Resident Physician. I agree with the documented findings, disposition and treatment plan as described except to the extent set forth below. We independently had [id number] contact with the patient I spent 45 minutes of Critical Care time with this patient. It involved decision making of high complexity to assess, manipulate, and support vital organ system failure and/or to prevent further life threatening deterioration of the patient's condition. The time involved in the performance of separately reportable procedures was not counted toward critical care time. Patient seen and examined at bedside Labs, radiology, chart personally reviewed. Management was reviewed during multidisciplinary critical care rounds. PAYROLL COORDINATOR: Patient is sedated ventilated and not following commands we will give sedation free holidays . Patient has a background of encephalopathy. Pulm: Patient has requiring high FiO2 chest x-ray shows bilateral interstitial pulmonary edema slightly diastolic heart failure will increase the PEEP to 10 cm of water and decrease FiO2. Once V/Q mismatch is stable will come down on the PEEP to 8 the background diuresis hopefully she will be extubated in one or 2 days. 9/10 patient has acceptable oxygenation and ventilation will do low tidal volume strategy with permissive hypercapnia. Patient still requiring high oxygen requirement will decrease PEEP and reduce the FiO2 patient has fluid overload with interstitial pulmonary edema with acute kidney injury with oliguria patient might need ultrafiltration with dialysis due to weekend liberated from mechanical ventilation. Cards: Patient needing minimal dose of vasopressor therapy patient had STEMI with stent to the LAD to continue Aggrenox and rectal aspirin once she is taking by mouth we will change to aspirin and Plavix at that point to continue the current regimen and according to cardiology team. FEN-GI: Patient is nothing by mouth because of the small bowel obstruction nutrition according to surgery. Start on TPN. Renal: Labs and output reviewed patient has hypernatremia and hypercholremia to continue hypotonic sodium bicarbonate. ID: To cover with broad-spectrum antibiotics for intra-abdominal surgery. Ambar ent shock is persistent will consider adding antifungals. Heme/Onc: Labs reviewed Endo: Glucose Monitored Integ/MSK: Skin Care per routine ICU Nursing Protocol to prevent ulcers. Lines: All lines examined without evidence of infection : Dispo: critically ill CODE: DNR CCA with intubation
[2019-06-26] MEDS: Norepinephrine 4 MG in 0.9 % Sodium Chloride 250 ML IVC SCH (07:20)
[2019-06-26] MEDS ORDERED: Sodium Bicarbonate 150 MEQ in D5% in Water 1,000 ML IVC SCH (08:00)
[2019-06-26] MEDS: Chlorhexidine Rinse 15 ML MOUTHWASH MM SCH ×2 (08:19→19:52)
[2019-06-26] MEDS: MetroNIDAZOLE 500 MG/100 ML 500 MG/100 ML BAG IVPB SCH ×3 (08:19→23:41)
[2019-06-26 09:12] LABS: Magnesium 1.6 mg/dL (1.6-2.6); Phosphorous 2.9 mg/dL (2.7-4.5)
--- NOTE | 2019-06-26 09:22 | Cardiology Progress Note ---
<Cordell Bianchi - Last Filed: 06/26/19 09:44> Date of Encounter: 06/26/19 Time of Encounter: 09:48 Assessment and Plan (1) Small bowel obstruction Current Visit: Yes Status: Resolved 1. S/P small bowel resection. Remains NPO with NG tube in place and mechanically ventilated. On vasopressor support. Management per primary service. (2) NSTEMI (non-ST elevated myocardial infarction) Current Visit: Yes Status: Acute Previous note reviewed: 1. [facility] 06/21/19 successful PCTA/SKIP to prox LAD without ischemic changes. Previously recommended continue ASA and Plavix due to high risk of stent thrombosis. 2. Per Dr. 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 Dr. Kaufman started Aggrastat. Discussed with Pharmacy, Cangrelor not on formulary. Previoously discussed with Dr. Cortes as well and remained on Aggrastat and placed on rectal ASA. 4. BB, ACEI off at moment-- now on vasopressor support; recs to resume when able. Statin intolerant will need pravastatin (RX at DC). 5. Today Pt. remains NPO per surgery related to Small bowel resection POD -1. Discussed with Dr. Jones this a.m. and pharmacy; will continue renal dose Aggrastat gtt and ASA rectal dose for now. Will need to monitor closely for instent re-thrombosis. 6. Recommend ASA and Plavix PO when able. Will continue to follow. (3) Hypertension Current Visit: Yes Status: Chronic 1. Pt. transfered to ICU, mechanically ventilated and sedated. 2. Currently on vasopressor support. BB and ACEI stopped per primary team. 2. Remains NPO pending surgery recs. Qualifiers: Hypertension type: essential hypertension Qualified Code(s): I10 - Essential (primary) hypertension Discussion w patient/family: The assessment and plan as outlined above was discussed with the patient and/or family members who expressed understanding and agreement. All questions were answered. Thank you for involving us in the care of your patient. Please call with any questions. Subjective Principal diagnosis: NSTEMI Interval history: Currently intubated and sedate. On vasopressor support. Objective Vital Signs, Last 4 Hours Temp Pulse Resp BP Pulse Ox 06/26/19 08:00 92 18 109/60 93 06/26/19 07:34 99.5 F 06/26/19 07:15 93 18 106/68 93 06/26/19 06:00 89 18 105/62 95 06/26/19 05:43 18 98/57 94 General: Other (intubated and sedated) HEENT: Atraumatic, Normocephaly, Mucus Membranes Moist Neck: No JVD, Normal carotid pulses Cardiac: Reg Rate and Rhythm, Normal S1 and S2, Other (Systolic murmur) Lungs: Other (on ventilator support with peep 10) Neuro: Other (sedated) Abdomen: Soft, Non-Tender, Other Skin: No rashes noted on visualized skin Musculoskeletal: No Chest Wall Tenderness Extremities: No Clubbing, No Cyanosis, Normal Pulses, Other (2+ pitting edema bilat lower legs) Results 06/26/19 04:19 06/26/19 04:19 Lab Results Selected Entries 06/26/19 08:00 Pulse Rate 94 Respiratory Rate 18 Blood Pressure 109/60 O2 Sat by Pulse Oximetry 93 Fraction of Inspired Oxygen % 40 Cardiac Enzymes 06/26/19 Range/Units 04:19 AST 19 (13-39) Units/L CBC 06/25/19 06/26/19 Range/Units 16:00 04:19 WBC 23.4 H 22.7 H (4.3-11.1) K/mcL RBC 3.37 L 3.19 L (3.82-4.97) M/mcL Hgb 10.9 L 10.2 L (11.5-15.4) g/dL Hct 35.7 34.1 L (35.3-44.9) % Plt Count 244 233 (140-400) K/mcL Comprehensive Metabolic Panel 06/26/19 Range/Units 04:19 Sodium 148 H (136-145) mEq/L Potassium 3.8 (3.5-5.1) mEq/L Chloride 119 H (98-107) mEq/L Carbon Dioxide 19 L (23-29) mEq/L BUN 41 H (8-23) mg/dL Creatinine 2.43 H (0.60-1.20) mg/dL Glucose 116 H (70-105) mg/dL Calcium 8.2 L (8.6-10.3) mg/dL AST 19 (13-39) Units/L ALT 16 (7-52) Units/L Alkaline Phosphatase 54 (34-104) Units/L Albumin 2.7 L (3.5-5.7) g/dL Laboratory Tests 06/20/19 06/20/19 06/21/19 09:58 15:59 16:00 Troponin I < 0.03 < 0.03 30.41 H* 06/21/19 17:12 Troponin I 32.90 H* Echocardiogram 06/21/19 12:02 Impressions: LVEF 40-45%. Normal LV chamber size. Basal sigmoid septum. Segmental left ventricular systolic dysfunction. Mild left ventricular diastolic dysfunction. There is no LV thrombus. Normal right ventricular structure and function. Moderately calcified aortic valve leaflets. Mild aortic stenosis by Doppler. Mean gradient 9 mmHg. Mild tricuspid regurgitation. Moderate pulmonary hypertension. Estimated RVSP is 54 mmHg. Left Ventricular Wall Motion: Rest Echo Findings The apex, apical inferior, apical septal and mid anterior septal tijerina were hypokinetic. All other wall segments showed normal motion. Echocardiogram Limited Views 06/23/19 08:00 Impressions: LVEF 40-45%. Normal LV chamber size. Basal sigmoid septum. Segmental left ventricular systolic dysfunction. There is no LV thrombus. Normal right ventricular structure and function. Left Ventricular Wall Motion: Rest Echo Findings The apex, apical inferior, apical anterior, apical septal and mid anterior septal tiejrina were hypokinetic. All other wall segments showed normal motion. Retroperitoneum Ultrasound 06/25/19 13:36 IMPRESSION: Unremarkable ultrasound of the kidneys and urinary bladder. D/ / Zuly Nixon Cha, MD / Zuly Nixon Cha, MD Interpreting Provider: Zuly Nixon Cha, MD Active Medications Artificial Tears (Akwa Tears) 1 drop BOTH EYES Q2HR PRN; Protocol PRN Reason: Dry Eyes Stop: 12/25/19 10:43 Artificial Tears (Akwa Tears) 1 drop BOTH EYES Q4HR [facility]OY; Protocol Stop: 12/25/19 12:01 Last Admin: 06/26/19 08:21 Dose: 1 drop Documented by: Aspirin (Aspirin) 300 mg RC DAILY [facility]OY Stop: 12/25/19 11:49 Last Admin: 06/26/19 08:19 Dose: 300 mg Documented by: Chlorhexidine Gluconate (Chlorhexidine Rinse) 15 ml MM BID FROY Stop: 12/25/19 21:01 Last Admin: 06/26/19 08:19 Dose: 15 ml Documented by: Dextrose/Water (Dextrose 50% (Syg)) 25 ml IVP AD PRN PRN Reason: Hypoglycemia Stop: 12/25/19 10:40 Glucagon (Glucagen) 1 mg IM ONCE PRN PRN Reason: Hypoglycemia Stop: 12/25/19 10:40 Glucose (Gluctose) 15 gm PO ONCE PRN PRN Reason: Hypoglycemia Stop: 12/25/19 10:40 Glucose (Gluctose) 30 gm PO ONCE PRN PRN Reason: Hypoglycemia Stop: 12/25/19 10:40 Metronidazole (Flagyl Premix 500 Mg/100 Ml) 500 mg in 100 mls @ 100 mls/hr IVPB Q8HR [facility] Stop: 12/24/19 12:01 Last Admin: 06/26/19 08:19 Dose: 100 mls/hr Documented by: Tirofiban/Sodium Chloride (Aggrastat 12.5 Mg/250 Ml) 12.5 mg in 250 mls @ 11.394 mls/hr IVC .[id number] [facility] Stop: 12/24/19 20:31 Last Admin: 06/25/19 17:19 Dose: 0.075 mcg/kg/min, 11.4 mls/hr Documented by: Fentanyl Citrate 1,000 mcg/ (Sodium Chloride) 100 mls @ 2.5 mls/hr IVC CONT FROY; Protocol Stop: 12/24/19 19:16 Last Admin: 06/26/19 05:33 Dose: 150 mcg/hr, 15 mls/hr Documented by: Midazolam HCl 50 mg/ Sodium (Chloride) 100 mls @ 4 mls/hr IVC CONT FROY; Protocol Stop: 12/24/19 19:16 Last Admin: 06/26/19 05:32 Dose: 5 mg/hr, 10 mls/hr Documented by: Norepinephrine Bitartrate 4 mg (/ Sodium Chloride) 254 mls @ 19.05 mls/hr IVC CONT FROY; Protocol Stop: 12/24/19 13:01 Last Admin: 06/26/19 07:20 Dose: 6 mcg/min, 22.9 mls/hr Documented by: Dextrose (Dextrose 5%) 1,000 mls @ 100 mls/hr IVC .Q10H PRN PRN Reason: HYPOGLYCEMIA Stop: 12/25/19 10:40 Sodium Bicarbonate 150 meq/ (Dextrose) 1,150 mls @ 100 mls/hr IVC .[id number] [facility] Stop: 06/26/19 19:29 Last Admin: 06/26/19 08:41 Dose: 100 mls/hr Documented by: Cefepime HCl 1,000 mg/ Sterile (Water) 10 mls @ 300 mls/hr IVP Q12H [facility] Stop: 12/25/19 12:01 Insulin Human Lispro (Humalog) 0 units SQ Q6HR [facility]OY; Protocol Stop: 12/25/19 12:01 Last Admin: 06/26/19 06:16 Dose: Not Given Documented by: Metoprolol Tartrate (Lopressor) 5 mg IVP Q6HR PRN PRN Reason: tachycardia Stop: 12/26/19 05:02 Last Admin: 06/26/19 05:11 Dose: 5 mg Documented by: Naloxone HCl (Narcan) 0.4 mg IVP Q2MPRN PRN PRN Reason: SEE COMMENTS Stop: 12/20/19 15:35 Nitroglycerin (Nitroglycerin) 0.4 mg SL Q5MPRN PRN PRN Reason: Chest Pain Stop: 12/22/19 13:43 Ondansetron HCl (Zofran) 4 mg IVP Q6HR PRN PRN Reason: Nausea And Vomiting Stop: 12/23/19 03:24 Oxycodone HCl (Oxycodone Oral Conc) 5 mg SL Q4H PRN; Protocol PRN Reason: mild to moderate pain Stop: 12/20/19 15:35 Oxycodone HCl (Oxycodone Oral Conc) 10 mg SL Q4H PRN; Protocol PRN Reason: Severe Pain Stop: 12/23/19 17:44 Pantoprazole Sodium (Protonix) 40 mg IVP Q12H [facility] Stop: 12/25/19 12:01 Last Admin: 06/25/19 23:59 Dose: 40 mg Documented by: - Imaging and Cardiology Chest Xray: report reviewed Echo: report reviewed Cardiac cath: report reviewed - EKG Interpretation EKG results cardiology: sinus rhythm Consult Discharge Plan - Plan Referrals: Juan Randall DO [Primary Care Provider] - <Edward Jones - Last Filed: 06/26/19 12:01> Date of Encounter: 06/26/19 Assessment and Plan (1) NSTEMI (non-ST elevated myocardial infarction) Current Visit: Yes Status: Acute Previous note reviewed: 1. [facility] 06/21/19 successful PCTA/SKIP to prox LAD without ischemic changes. Previously recommended continue ASA and Plavix due to high risk of stent thrombosis. 2. Per Dr. 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 Dr. Bong wiseman started Aggrastat. Discussed with Pharmacy, Cangrelor not on formulary. Previoously discussed with Dr. Cortes as well and remained on Aggrastat and placed on rectal ASA. 4. BB, ACEI off at moment-- now on vasopressor support; recs to resume when able. Statin intolerant will need pravastatin (RX at DC). 5. Today Pt. remains NPO per surgery related to Small bowel resection POD -1. Discussed with Dr. Jones this a.m. and pharmacy; will continue renal dose Aggrastat gtt and ASA rectal dose for now. Will need to monitor closely for instent re-thrombosis. 6. Recommend ASA and Plavix PO when able. Will continue to follow. Staff note difficult clinical situation with fresh coronary stent and now no oral intake due to small bowel obstruction and surgery. She is receiving aspirin via [place] Route. The short-term use of IIb IIIa inhibitor is reasonable for now but should be transitioned quickly to an oral agent. Discussion w patient/family: The assessment and plan as outlined above was discussed with the patient and/or family members who expressed understanding and agreement. All questions were answered. Thank you for involving us in the care of your patient. Please call with any questions. Objective Vital Signs, Last 4 Hours Temp Pulse Resp BP Pulse Ox 06/26/19 11:59 99.4 F 06/26/19 11:38 18 90 06/26/19 09:46 18 91 06/26/19 09:00 90 18 107/60 92 Results 06/26/19 04:19 06/26/19 04:19 Lab Results 06/25/19 06/26/19 06/26/19 16:00 04:19 04:19 WBC 23.4 H 22.7 H Hgb 10.9 L 10.2 L Hct 35.7 34.1 L Plt Count 244 233 Sodium 148 H Potassium 3.8 Chloride 119 H Carbon Dioxide 19 L BUN 41 H Creatinine 2.43 H Glucose 116 H Calcium 8.2 L Magnesium 1.6 Total Bilirubin 0.6 AST 19 ALT 16 Alkaline Phosphatase 54
[2019-06-26] MEDS ORDERED: D10% in Water 500 ML IVC PRN (10:47)
--- NOTE | 2019-06-26 11:13 | AcuteCareSurgery Progress Note ---
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 She remains intubated and sedated. NG is with expected output; no bowel sounds noted as expected. She is on pressor support. Plan: Continue supportive care and discomfort management while awaiting full return of bowel function Continue G.I. and DVT prophylaxis Cares per primary team Continue AC per cardiology Will continue to follow Subjective Narrative: Unable to obtain secondary to intubated and sedated Objective Vital Signs - Last 8 Hours Temp Pulse Resp BP Pulse Ox 06/26/19 09:46 18 91 06/26/19 09:00 90 18 107/60 92 06/26/19 08:00 94 18 109/60 93 06/26/19 07:34 99.5 F 06/26/19 07:33 18 92 06/26/19 07:15 93 18 106/68 93 06/26/19 06:00 89 18 105/62 95 06/26/19 05:43 18 98/57 94 06/26/19 05:00 124 20 99/65 93 06/26/19 04:39 99.5 F 06/26/19 04:12 19 94/61 93 06/26/19 04:00 123 20 94/61 92 Intake and Output 06/25/19 06/26/19 06/26/19 23:59 07:59 15:59 Intake Total 1653.3 / 4195.0 1564 / 1564 Output Total 120 / 302 35 / 35 Balance 1533.3 / 3893.0 1529 / 1529 Intake: IV Fluids 1653.3 / 4195.0 1564 / 1564 FentaNYL (PF) 1,000 MCG In 0.9 200 / 200 100 / 100 % Sodium Chloride 80 ML @ 25 MCG/HR 2.5 mls/hr IVC CONT [facility]OY Rx#:[id number] Versed 50 MG In 0.9 % Sodium 54.8 / 100.0 100 / 100 Chloride 90 ML @ 2 MG/HR 4 mls/ hr IVC CONT [facility]OY Rx#:[id number] Levophed 4 MG In 0.9 % Sodium 127 / 254 254 / 254 Chloride 250 ML @ 5 MCG/MIN 19. 05 mls/hr IVC CONT [facility]OY Rx#: [id number] Lactated Ringers 1,000 ML @ 100 1000 / 1000 1000 / 1000 mls/hr IVC .Q10H [facility] Rx#: [id number] Aggrastat 12.5 MG/250 ML 12.5 161.5 / 250.0 mg In 250 ml @ 0.075 MCG/KG/MIN 11.394 mls/hr IVC .[id number] [facility] Rx#:[id number] Maxipime 1,000 MG In Water for inj. (sterile) 10 ML @ 300 mls/ hr IVP Q8H [facility] Rx#:[id number] Flagyl Premix 500 MG/100 ML 500 100 / 200 100 / 100 mg In 100 ml @ 100 mls/hr IVPB Q8HR [facility] Rx#:[id number] Output: Catheter 35 / 35 Gastric Drainage 100 / 200 Other: Weight 136.7 kg Blood Glucose* 121 108 - General physical appearance no distress - ENT Other (OG secured) - Respiratory other (Mechanical breath sounds) - Cardiovascular Cardiovascular exam: Present: RRR - Abdomen Abdomen: Present: soft. Absent: bowel sounds present - Incision Incision: Present: clean and dry, intact - Integumentary no rash - Neurologic other (Intubated and sedated) - Labs 06/26/19 04:19 06/26/19 04:19 Diabetes panel 06/26/19 Range/Units 04:19 Sodium 148 H (136-145) mEq/L Potassium 3.8 (3.5-5.1) mEq/L Chloride 119 H (98-107) mEq/L Carbon Dioxide 19 L (23-29) mEq/L BUN 41 H (8-23) mg/dL Creatinine 2.43 H (0.60-1.20) mg/dL Glucose 116 H (70-105) mg/dL Calcium 8.2 L (8.6-10.3) mg/dL AST 19 (13-39) Units/L ALT 16 (7-52) Units/L Alkaline Phosphatase 54 (34-104) Units/L Albumin 2.7 L (3.5-5.7) g/dL Calcium panel 06/26/19 Range/Units 04:19 Calcium 8.2 L (8.6-10.3) mg/dL Phosphorus 2.9 (2.7-4.5) mg/dL Albumin 2.7 L (3.5-5.7) g/dL Pituitary panel 06/26/19 Range/Units 04:19 Sodium 148 H (136-145) mEq/L Potassium 3.8 (3.5-5.1) mEq/L Chloride 119 H (98-107) mEq/L Carbon Dioxide 19 L (23-29) mEq/L BUN 41 H (8-23) mg/dL Creatinine 2.43 H (0.60-1.20) mg/dL Glucose 116 H (70-105) mg/dL Calcium 8.2 L (8.6-10.3) mg/dL Adrenal panel 06/26/19 Range/Units 04:19 Sodium 148 H (136-145) mEq/L Potassium 3.8 (3.5-5.1) mEq/L Chloride 119 H (98-107) mEq/L Carbon Dioxide 19 L (23-29) mEq/L BUN 41 H (8-23) mg/dL Creatinine 2.43 H (0.60-1.20) mg/dL Glucose 116 H (70-105) mg/dL Calcium 8.2 L (8.6-10.3) mg/dL Total Bilirubin 0.6 (0.3-1.0) mg/dL AST 19 (13-39) Units/L ALT 16 (7-52) Units/L Alkaline Phosphatase 54 (34-104) Units/L Albumin 2.7 L (3.5-5.7) g/dL Consult Discharge Plan - Plan Referrals: Juan Randall DO [Primary Care Provider] - <William Santos - Last Filed: 06/26/19 15:14> Date of Encounter: 06/26/19 - Assessment and Plan (1) Small bowel obstruction Current Visit: Yes Status: Acute Objective Vital Signs - Last 8 Hours Temp Pulse Resp BP Pulse Ox 06/26/19 13:00 88 18 93/53 90 06/26/19 12:00 85 18 93/53 90 06/26/19 11:59 99.4 F 06/26/19 11:38 18 90 06/26/19 11:00 87 18 102/59 90 06/26/19 10:00 87 18 102/58 91 06/26/19 09:46 18 91 06/26/19 09:00 90 18 107/60 92 06/26/19 08:00 94 18 109/60 93 06/26/19 07:34 99.5 F 06/26/19 07:33 18 92 06/26/19 07:15 93 18 106/68 93 Intake and Output 06/25/19 06/26/19 06/26/19 23:59 07:59 15:59 Intake Total 1653.3 / 4195.0 1564 / 1664 100 / 1664 Output Total 120 / 302 35 / 35 Balance 1533.3 / 3893.0 1529 / 1629 100 / 1629 Intake: IV Fluids 1653.3 / 4195.0 1564 / 1664 100 / 1664 FentaNYL (PF) 1,000 MCG In 0.9 200 / 200 100 / 200 100 / 200 % Sodium Chloride 80 ML @ 25 MCG/HR 2.5 mls/hr IVC CONT [facility] Rx#:[id number] Versed 50 MG In 0.9 % Sodium 54.8 / 100.0 100 / 100 Chloride 90 ML @ 2 MG/HR 4 mls/ hr IVC CONT [facility] Rx#:[id number] Levophed 4 MG In 0.9 % Sodium 127 / 254 254 / 254 Chloride 250 ML @ 5 MCG/MIN 19. 05 mls/hr IVC CONT [facility] Rx#: [id number] Lactated Ringers 1,000 ML @ 100 1000 / 1000 1000 / 1000 mls/hr IVC .Q10H [facility] Rx#: [id number] Aggrastat 12.5 MG/250 ML 12.5 161.5 / 250.0 mg In 250 ml @ 0.075 MCG/KG/MIN 11.394 mls/hr IVC .[id number] [facility] Rx#:[id number] Maxipime 1,000 MG In Water for inj. (sterile) 10 ML @ 300 mls/ hr IVP Q8H [facility] Rx#:[id number] Flagyl Premix 500 MG/100 ML 500 100 / 200 100 / 100 mg In 100 ml @ 100 mls/hr IVPB Q8HR [facility] Rx#:[id number] Output: Catheter 35 / 35 Gastric Drainage 100 / 200 Other: Weight 136.7 kg Blood Glucose* 121 108 118 - Labs 06/26/19 04:19 06/26/19 04:19 Diabetes panel 06/26/19 Range/Units 04:19 Sodium 148 H (136-145) mEq/L Potassium 3.8 (3.5-5.1) mEq/L Chloride 119 H (98-107) mEq/L Carbon Dioxide 19 L (23-29) mEq/L BUN 41 H (8-23) mg/dL Creatinine 2.43 H (0.60-1.20) mg/dL Glucose 116 H (70-105) mg/dL Calcium 8.2 L (8.6-10.3) mg/dL AST 19 (13-39) Units/L ALT 16 (7-52) Units/L Alkaline Phosphatase 54 (34-104) Units/L Albumin 2.7 L (3.5-5.7) g/dL Calcium panel 06/26/19 Range/Units 04:19 Calcium 8.2 L (8.6-10.3) mg/dL Phosphorus 2.9 (2.7-4.5) mg/dL Albumin 2.7 L (3.5-5.7) g/dL Pituitary panel 06/26/19 Range/Units 04:19 Sodium 148 H (136-145) mEq/L Potassium 3.8 (3.5-5.1) mEq/L Chloride 119 H (98-107) mEq/L Carbon Dioxide 19 L (23-29) mEq/L BUN 41 H (8-23) mg/dL Creatinine 2.43 H (0.60-1.20) mg/dL Glucose 116 H (70-105) mg/dL Calcium 8.2 L (8.6-10.3) mg/dL Adrenal panel 06/26/19 Range/Units 04:19 Sodium 148 H (136-145) mEq/L Potassium 3.8 (3.5-5.1) mEq/L Chloride 119 H (98-107) mEq/L Carbon Dioxide 19 L (23-29) mEq/L BUN 41 H (8-23) mg/dL Creatinine 2.43 H (0.60-1.20) mg/dL Glucose 116 H (70-105) mg/dL Calcium 8.2 L (8.6-10.3) mg/dL Total Bilirubin 0.6 (0.3-1.0) mg/dL AST 19 (13-39) Units/L ALT 16 (7-52) Units/L Alkaline Phosphatase 54 (34-104) Units/L Albumin 2.7 L (3.5-5.7) g/dL - Attending Attestation I have personally performed a face to face evaluation on this patient. I have reviewed and agree with the care plan. History and Exam by me shows: The patient is seen and evaluated on morning rounds with the acute care surgery team. She is still intubated and sedated. The abdomen is soft with no bowel sounds. No bowel activity yet. Await return of bowel activity to begin feedings. Continue ventilatory wean William Santos MD FACS
[2019-06-26] MEDS: Pantoprazole 40 MG VIAL IVP SCH ×2 (12:17→23:41)
--- NOTE | 2019-06-26 13:39 | Nephrology Consult Note ---
Date of Encounter: 06/26/19 Time of Encounter: 11:30 (Time estimated) Assessment and Plan (1) Acute kidney injury Current Visit: Yes Status: Acute (2) Hypernatremia Current Visit: Yes Status: Acute (3) Acidosis Current Visit: Yes Status: Acute (4) Acute respiratory failure with hypoxia Current Visit: Yes Status: Acute (5) Small bowel obstruction Current Visit: Yes Status: Acute (6) STEMI (ST elevation myocardial infarction) Current Visit: Yes Status: Resolved Qualifiers: Involved coronary artery: LAD coronary artery Qualified Code(s): I21.02 - ST elevation (STEMI) myocardial infarction involving left anterior descending coronary artery (7) Hyperparathyroidism Current Visit: No Status: Chronic History of Present Illness - History of Present Illness Chart review Ms. Kellee Marrero is an 83-year-old female who presented to the ED via EMS on 06/20 for nausea and vomiting. PMH: Breast Cancer, hyperparathyroidism, CVA, hypertension, thyroidectomy Initial vitals significant for heart rate of 93 Early labs significant for: WBC 14.9. D-dimer 1475. Blood bicarbonate decreased at 20. Calcium elevated at 10.8. CT abdomen/pelvis on 06/20 2 suggested small bowel obstruction. She was admitted to the floor for small bowel obstruction. An NG tube was placed. Surgery was consulted and recommended conservative management. Patient was given IV fluid. The next day on 06/21 the patient's troponins were 30.41> 32.90. She was taken to the Respiratory Coordinator where they performed percutaneous transluminal coronary angioplasty and drug-eluting stent placement in the proximal LAD. On 06/24 the patient was intubated at noon and underwent small bowel resection/Meckel's diverticulectomy after which she was transferred to the ICU. On 06/25 retroperitoneal ultrasound was read as unremarkable. Per interview with family and nursing staff: She was transferred after the catheterization to the ICU. She was transferred to the floor where she became hypotensive and required transfer back to the ICU. She has not been extubated since intubation on 06/24. History of present illness: Sister gives most of history. Patient lives alone and called EMS herself after becoming short of breath. PMH: mentions frequent UTIs that the patient used to get and also that the patient has seen Dr. Chris for kidney stones. 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 Today: Nursing staff reports that they have almost been successful in discontinuing the norepinephrine. Reports that sodium bicarbonate drip was started this morning. She has not been able to gather urine for studies. She has irrigated the catheter and it is patent. *Some past medical history, allergies, medications are auto populated into this note Past Med Surg Social Fam HX - Past Medical History Medical history: cancer, CVA, hypertension, renal disease, TIA, other Additional medical history: breast cancer Psychiatric history: no psych history - Past Surgical History Surgical History: herniorrhaphy, other Additional surgical history: kidney stone removed L kidney, hernia repair, tubal ligation left lumpectomy, d&c, carpal tunnel, lithotripsy, bilateral breast bx, parthyroidectomy, tyroid nodule and parathyroid, left breast cancer. - Social History Smoking Status: Former smoker Smokeless Tobacco Status: No Alcohol use: none Drug use: none - Family History Father Hx Family Cardiac Disorders: Yes Medications and Allergies Aspirin 81 mg PO QPM 08/04/15 [History] Losartan/Hydrochlorothiazide [Hyzaar 100-12.5 Tablet] 1 each PO QPM 08/04/15 [History] Loratadine [Claritin] 10 mg PO DAILY 08/23/18 [History] Tolterodine Tartrate [Detrol] 2 mg PO BID 09/25/18 [History] Cholecalciferol (D-3) [Vitamin D] 2,000 units PO QAM 06/20/19 [History] Metoprolol Succinate [Toprol Xl] 25 mg PO QAM 06/20/19 [History] Multivit-Min/Iron/Folic/Lutein [Centrum Silver Women Tablet] 1 tab PO QPM 06/20/19 [History] Omeprazole 20 mg PO QAM 06/20/19 [History] PARoxetine HCl [Paroxetine HCl] 20 mg PO QAM 06/20/19 [History] Allergy/AdvReac Type Severity Reaction Status Date / Time Iodinated Contrast Media AdvReac Hives Verified 06/20/19 21:06 Penicillins [PCN] AdvReac Hives Verified 06/20/19 21:06 Maxosaj-Ada-Bpt Reductase AdvReac Muscle Pain Verified 06/20/19 21:06 Inhibitor [Statins] Exam - Vital Signs Vital signs: Initial Vital Signs Temp Pulse Resp BP Pulse Ox 97.5 F L 75 22 148/74 92 06/20/19 09:51 06/20/19 09:51 06/20/19 09:51 06/20/19 09:51 06/20/19 09:51 Vital Signs - Last 8 Hours Temp Pulse Resp BP Pulse Ox 06/26/19 13:00 88 18 93/53 90 06/26/19 12:00 85 18 93/53 90 06/26/19 11:59 99.4 F 06/26/19 11:38 18 90 06/26/19 11:00 87 18 102/59 90 06/26/19 10:00 87 18 102/58 91 06/26/19 09:46 18 91 06/26/19 09:00 90 18 107/60 92 06/26/19 08:00 94 18 109/60 93 06/26/19 07:34 99.5 F 06/26/19 07:33 18 92 06/26/19 07:15 93 18 106/68 93 06/26/19 06:00 89 18 105/62 95 06/26/19 05:43 18 98/57 94 Intake and Output 06/25/19 06/26/19 06/26/19 23:59 07:59 15:59 Intake Total 1653.3 / 4195.0 1564 / 1664 100 / 1664 Output Total 120 / 302 35 / 35 Balance 1533.3 / 3893.0 1529 / 1629 100 / 1629 Intake: IV Fluids 1653.3 / 4195.0 1564 / 1664 100 / 1664 FentaNYL (PF) 1,000 MCG In 0.9 200 / 200 100 / 200 100 / 200 % Sodium Chloride 80 ML @ 25 MCG/HR 2.5 mls/hr IVC CONT [facility] Rx#:[id number] Versed 50 MG In 0.9 % Sodium 54.8 / 100.0 100 / 100 Chloride 90 ML @ 2 MG/HR 4 mls/ hr IVC CONT [facility] Rx#:[id number] Levophed 4 MG In 0.9 % Sodium 127 / 254 254 / 254 Chloride 250 ML @ 5 MCG/MIN 19. 05 mls/hr IVC [facility] Rx#: [id number] Lactated Ringers 1,000 ML @ 100 1000 / 1000 1000 / 1000 mls/hr IVC .Q10H [facility] Rx#: [id number] Aggrastat 12.5 MG/250 ML 12.5 161.5 / 250.0 mg In 250 ml @ 0.075 MCG/KG/MIN 11.394 mls/hr IVC .[id number] [facility] Rx#:[id number] Maxipime 1,000 MG In Water for inj. (sterile) 10 ML @ 300 mls/ hr IVP Q8H [facility] Rx#:[id number] Flagyl Premix 500 MG/100 ML 500 100 / 200 100 / 100 mg In 100 ml @ 100 mls/hr IVPB Q8HR [facility] Rx#:[id number] Output: Catheter 35 / 35 Gastric Drainage 100 / 200 Other: Weight 136.7 kg Blood Glucose* 121 108 118 Additional exam: Gen.: Elderly female. Intubated and sedated Skin: Good turgor Eyes: Moist. Anicteric Cardiac: S1, S2 heard over tricuspid post. No obvious murmurs gallops or rubs heard Respiratory: Coarse rhonchi on upper anterior right lung field as well as mild crackles on left upper anterior lung field. Right base showed no audible breath sounds likely secondary to body habitus and difficulty secondary to patient positioning Extremities: Capillary refill less than 2 seconds bilateral upper extremities. Nonpitting bilateral lower extremity edema of at least the ankles. Neuro: Jignesh 5 A/P #ERNST with anuria Consider vancomycin given 06/24. operation on 06/24 causing relative hypovolemia. Hypotension the cause of re-ICU admission. Cannot rule out intrinsic renal disease. Catheterization 06/[address] abdomen and pelvis 06/20 contrast exposures. Receiving cefepime and cannot rule out AIN. Retroperitoneal ultrasound on 06/25 unremarkable. KDIGO: Creatinine elevation from 1.01>2.43 No urine output from at least 8 AM to 5 PM on 06/26 -Gen. urinalysis pending -Urine sodium pending -Urine potassium pending -Urine phosphorus pending -Urine chloride pending -Urine calcium pending -urine creatinine pending -Urine eosinophils pending -Serum uric acid, creatinine kinase pending -Hepatitis B surface antibody and antigen pending -Will likely need Hai and will assess in the morning #Hypernatremia Consider some amount of 0.9% sodium chloride given on 06/20, 3.78 L on 06/24, 1.371 L on 06/25. Free water deficit: 3.5 L First insult was level of 146 on 06/24 -urine osmolality pending -continue hypotonic NaHCO3 drip. #Non-anion gap acidosis Difficult to tell at this point whether respiratory or metabolic. Consider hypo-ventilation versus secondary to GI loss of bicarbonate versus renal tubular acidosis. -06/26: PH 7.29. ABG shows CO2 at 45 and bicarbonate at 22. Serum bicarbonate 19. -will likely need hai -optimize vent settings per ICU team #Acute respiratory failure with hypoxia -per ICU #STEMI -per ICU #SBO -per ICU #Hyperparathyroidism -Status post thyroid and parathyroidectomy Results - Lab Results 06/26/19 04:19 06/26/19 04:19 Most recent lab results 06/26/19 06/26/19 04:19 05:49 ABG pH 7.29 L ABG pCO2 45 ABG pO2 82 L ABG HCO3 22 ABG O2 Saturation 95 Calcium 8.2 L Phosphorus 2.9 Magnesium 1.6 Consult Discharge Plan - Plan Referrals: Juan Randall DO [Primary Care Provider] -
[2019-06-26] MEDS ORDERED: Cefepime HCl 1,000 MG in Water for inj. (sterile) 10 ML IVP SCH (16:00)
[2019-06-26] MEDS: Tirofiban 12.5 MG/250ML 12.5 MG/250 ML BAG IVC SCH (16:03)
[2019-06-26] MEDS: *HR* Heparin 5,000 UNIT/ML VIAL SQ SCH ×2 (16:48→21:57)
[2019-06-26] MEDS ORDERED: Clinimix E 5%-15% SOLUTION 2,000 ML with MVI, adult with vitamin K 10 ML IVC ONE (17:00)
[2019-06-26 17:55] LABS: Calcium 8.8 mg/dL (8.6-10.3); Magnesium 2.1 mg/dL (1.6-2.6); Potassium 3.7 mEq/L (3.5-5.1)
[2019-06-26 18:09] LABS: Hepatitis B Surface Antibody 3.39 mIU/mL
[2019-06-26 18:20] LABS: Hepatitis B Surface Antigen Nonreactive (Nonreactive)
[2019-06-26 18:32] LABS: Uric Acid 8.8 mg/dL (2.3-7.6)
[2019-06-26 21:42] LABS: Calcium 8.3 mg/dL (8.6-10.3); Potassium 3.7 mEq/L (3.5-5.1)
[2019-06-27] MEDS: FentaNYL (PF) 1,000 MCG in 0.9 % Sodium Chloride 80 ML IVC SCH ×4 (01:25→20:31)
[2019-06-27] MEDS: Insulin LISPRO 300 UNITS/3 ML VIAL SQ SCH ×6 (04:33→23:33)
[2019-06-27] MEDS: Artificial Tears SOLN 15 ML BOTTLE BOTH EYES SCH ×6 (04:33→23:04)
[2019-06-27 05:18] LABS: Hemoglobin 9.4 g/dL (11.5-15.4); Mean Corpuscular HGB Conc 30.3 g/dL (31.6-35.5); Mean Corpuscular Hemoglobin 32.2 pg (28.0-33.3); Mean Corpuscular Volume 106.2 fL (83.0-100.0); Mean Platelet Volume 11.2 fL (9.4-12.4); Nucleated Red Blood Cells 0.1 /100 WBC (0); Platelet Count 168 K/mcL (140-400); Red Blood Count 2.92 M/mcL (3.82-4.97); Red Cell Distribution Width 14.3 % (11.5-14.5); White Blood Count 18.4 K/mcL (4.3-11.1)
[2019-06-27 05:26] LABS: ABG Base Excess -1 mEq/L (-2 to 3); ABG HCO3 25 mEq/L (21-27); ABG Oxygen Saturation 93 % (95-98); ABG PCO2 48 mmHg (35-45); ABG PH 7.32 pH Units (7.32-7.45); ABG PO2 72 mmHg (85-104); ABG TCO2 26 mEq/L (20-26)
[2019-06-27 05:33] LABS: Albumin 2.5 g/dL (3.5-5.7); Bilirubin,Total 0.4 mg/dL (0.3-1.0); Calcium 8.8 mg/dL (8.6-10.3); Globulin 2.6 g/dL (2.4-3.5); Phosphorous 2.6 mg/dL (2.7-4.5); Potassium 3.6 mEq/L (3.5-5.1); Total Protein 5.1 g/dL (6.4-8.9)
[2019-06-27] MEDS: *HR* Heparin 5,000 UNIT/ML VIAL SQ SCH ×3 (05:38→21:06)
--- NOTE | 2019-06-27 05:47 | Nephrology Progress Note ---
Date of Encounter: 06/27/19 Time of Encounter: 06:20 (Time Estimated) - Assessment and Plan (1) Acute kidney injury Current Visit: Yes Status: Acute (2) Hypernatremia Current Visit: Yes Status: Acute (3) Acidosis Current Visit: Yes Status: Acute (4) Acute respiratory failure with hypoxia Current Visit: Yes Status: Acute (5) Small bowel obstruction Current Visit: Yes Status: Acute (6) STEMI (ST elevation myocardial infarction) Current Visit: Yes Status: Resolved Qualifiers: Involved coronary artery: LAD coronary artery Qualified Code(s): I21.02 - ST elevation (STEMI) myocardial infarction involving left anterior descending coronary artery (7) Hyperparathyroidism Current Visit: No Status: Chronic Subjective Interval history: Subjective Patient seen and examined at bedside. Objective PE Gen.: Elderly female. Intubated and sedated Skin: Turgor around 2 seconds return Eyes: Moist. Anicteric Cardiac: S1, S2. At least 3/6 systolic murmur best heard over aortic valve Respiratory: Right basilar crackles. Left base not able to be heard reliably secondary to positioning and body habitus. Left anterior low rhonchi on expiration. Abdomen: Bandaged Extremities: Capillary refill less than 2 seconds bilateral upper extremities. Likely pitting edema to mid tibia on the left and proximal tibia on the right. Ankle edema bilaterally. Neuro: [place] 4-6. Would move her legs when touched during the exam. She would not respond to voice. A/P #ERNST with anuria Suspect ATN Consider vancomycin given 06/24. operation on 06/24 causing relative hypovolemia. Hypotension the cause of re-ICU admission. Cannot rule out intrinsic renal dise ase. Catheterization 06/[address] abdomen and pelvis 06/20 contrast exposures. Received cefepime and cannot rule out AIN. Retroperitoneal ultrasound on 06/25 unremarkable. KDIGO: Creatinine elevation from 1.01>2.43 No urine output from at least 8 AM to 5 PM on 06/26 Uric acid elevated at 8.8 CK elevated at 239 Hepatitis B surface antigen nonreactive and surface antibody low at 3.39 -Gen. urinalysis pending -Urine sodium pending -Urine potassium pending -Urine phosphorus pending -Urine chloride pending -Urine calcium pending -urine creatinine pending -Urine eosinophils pending -Plan for continuous renal replacement therapy today #Hypernatremia Consider some amount of 0.9% sodium chloride given on 06/20, 3.78 L on 06/24, 1.371 L on 06/25. Free water deficit: 3.5 L First insult was level of 146 on 06/24 -urine osmolality pending #Non-anion gap acidosis 06/27: ABG indicates slight respiratory acidosis with metabolic compensation -optimize vent settings per ICU team #Acute respiratory failure with hypoxia -per ICU #STEMI -per ICU #SBO -per ICU #Hyperparathyroidism -Status post thyroid and parathyroidectomy Objective - Vital Signs Vital signs: Vital Signs Temp Pulse Resp BP Pulse Ox 06/27/19 05:25 18 93 06/27/19 05:00 80 18 104/54 94 06/27/19 04:00 99.2 F 80 18 102/56 93 06/27/19 03:39 18 91 06/27/19 03:00 80 18 100/54 91 06/27/19 02:00 78 18 99/56 90 06/27/19 01:00 80 18 100/54 92 06/27/19 00:51 18 92 06/27/19 00:00 81 18 92/47 92 06/26/19 23:30 81 06/26/19 23:00 99.0 F 85 18 91/51 93 06/26/19 22:15 18 88 06/26/19 22:00 84 18 113/60 92 06/26/19 21:00 83 18 104/59 91 06/26/19 20:11 18 89 06/26/19 20:00 99.3 F 87 18 120/60 89 06/26/19 19:30 85 06/26/19 19:00 86 18 111/55 91 06/26/19 18:18 18 91 06/26/19 18:00 90 18 117/53 90 06/26/19 17:00 93 18 115/56 91 06/26/19 16:31 99.1 F 06/26/19 16:15 18 92 06/26/19 16:00 85 18 112/56 91 06/26/19 15:00 85 18 100/55 91 06/26/19 14:00 86 18 103/55 91 06/26/19 13:16 18 90 06/26/19 13:00 88 18 93/53 90 06/26/19 12:00 85 18 93/53 90 06/26/19 11:59 99.4 F 06/26/19 11:38 18 90 06/26/19 11:00 87 18 102/59 90 06/26/19 10:00 87 18 102/58 91 06/26/19 09:46 18 91 06/26/19 09:00 90 18 107/60 92 06/26/19 08:00 94 18 109/60 93 06/26/19 07:34 99.5 F 06/26/19 07:33 18 92 06/26/19 07:15 93 18 106/68 93 06/26/19 06:00 89 18 105/62 95 Intake and Output 06/26/19 06/26/19 06/27/19 15:59 23:59 07:59 Intake Total 805 / 3979 1610 / 3979 300 / 300 Output Total 0 / 35 0 / 35 0 / 0 Balance 805 / 3944 1610 / 3944 300 / 300 Intake: IV Fluids 805 / 3979 1610 / 3979 300 / 300 FentaNYL (PF) 1,000 MCG In 0.9 100 / 300 100 / 300 100 / 100 % Sodium Chloride 80 ML @ 25 MCG/HR 2.5 mls/hr IVC [facility] Rx#:[id number] Versed 50 MG In 0.9 % Sodium 100 / 200 100 / 100 Chloride 90 ML @ 2 MG/HR 4 mls/ hr IVC CONT [facility] Rx#:[id number] Levophed 4 MG In 0.9 % Sodium 30 / 284 Chloride 250 ML @ 5 MCG/MIN 19. 05 mls/hr IVC CONT [facility] Rx#: [id number] Lactated Ringers 1,000 ML @ 100 425 / 1425 mls/hr IVC .Q10H [facility] Rx#: [id number] Sodium Bicarbonate 150 MEQ In 1150 / 1150 Dextrose 5% 1,000 ML @ 100 mls/ hr IVC .[id number] [facility] Rx#: [id number] Aggrastat 12.5 MG/250 ML 12.5 250 / 250 mg In 250 ml @ 0.075 MCG/KG/MIN 11.394 mls/hr IVC .[id number] [facility] Rx#:[id number] Maxipime 1,000 MG In Water for inj. (sterile) 10 ML @ 300 mls/ hr IVP Q12H [facility] Rx#:[id number] Magnesium Sulfate Premix 2gm/ 50 / 50 50mL 2 gm In 50 ml @ 48.077 mls /hr IVPB ONCE ONE Rx#: [id number] Flagyl Premix 500 MG/100 ML 500 100 / 300 100 / 300 100 / 100 mg In 100 ml @ 100 mls/hr IVPB Q8HR [facility] Rx#:[id number] Output: Catheter 0 / 35 0 / 35 0 / 0 Gastric Drainage 0 / 0 0 / 0 Other: Weight 139 kg Blood Glucose* 118 125 127 - Lab 06/27/19 04:45 06/27/19 04:45 Most recent lab results 06/26/19 06/26/19 06/27/19 17:20 21:13 04:45 ABG pH ABG pCO2 ABG pO2 ABG HCO3 ABG O2 Saturation Calcium 8.8 8.3 L 8.8 Phosphorus 2.6 L Magnesium 2.1 2.0 06/27/19 05:22 ABG pH 7.32 ABG pCO2 48 H ABG pO2 72 L ABG HCO3 25 ABG O2 Saturation 93 L Calcium Phosphorus Magnesium Consult Discharge Plan - Plan Referrals: Juan Randall DO [Primary Care Provider] -
[2019-06-27 06:02] LABS: Large Platelets Present (Not Present); Lymphocytes # 0.7 K/mcL (0.6-4.6); Monocytes # 0.4 K/mcL (0.0-1.3); Neutrophils # 17.3 K/mcL (1.6-8.9); Platelet Estimate Normal (Normal)
--- NOTE | 2019-06-27 07:10 | Pulmonology Progress Note ---
<Corey Colon - Last Filed: 06/27/19 13:26> Date of Encounter: 06/27/19 Time of Encounter: 07:10 Assessment and Plan (1) Acute respiratory failure with hypoxia Current Visit: Yes Status: Acute ARDS versus CHF with fluid overload versus PNA WBC of 18.3 CTA 06/20/19 negative for PE Placed on mechanical ventilation overnight prior to surgery ABG this morning of pH 7.32, PCO2 of 48, PO2 of 72, and HCO3 of 25 with an O2 saturation 93% Cumulative I&Os of +44644.1 Patient adjusted to tidal volume of 400, PEEP of 10, and FiO2 of 40%. -Pt currently on minimal dose NE when pt is weaned from pressors and off for 6 hours will start diuresis -Continue mechanical ventilatory support and attempt to wean pt from ventilator with SBT as pt improves -Sputum culture negative -On Cefepime day 3 (2) Oligouria Current Visit: Yes Status: Acute Pt with only 337 ml of output over the past 24 hours Original Celestin was taken out and had clotting at tip. Second Celestin placed which is allowing output. Retroperitoneal ultrasound performed with unremarkable kidneys and urinary bladder. No signs of distended bladder or hydronephrosis -UA and Urine electrolytes ordered, but pt has not been able to make urine -Nephrology consulted plan for hai starting today (3) STEMI (ST elevation myocardial infarction) Current Visit: Yes Status: Resolved Patient with PCI to LAD on 06/21/19 Currently on Aggrastat Cardiology consulted -Plan to continue Aggrastat and convert ASA to rectal dosing. -We will transition to Plavix when patient is able to take by mouth medications. Qualifiers: Involved coronary artery: LAD coronary artery Qualified Code(s): I21.02 - ST elevation (STEMI) myocardial infarction involving left anterior descending coronary artery (4) Small bowel obstruction Current Visit: Yes Status: Acute Patient admitted for small bowel obstruction on 06/20/19 NG tube was inserted patient was put on bowel rest without resolution of SBO Patient taken for bowel resection on 06/24/19 Sepsis protocol initiated and patient received recommended 30 mils per kilogram IV fluid resuscitation. Blood cultures pending Lactic acid of 1.2 -Postop day 3 -NPO -Started on TPN -Cefepime and Flagyl abx therapy (5) DVT prophylaxis Current Visit: Yes Status: Acute SCDs in place Subjective Principal diagnosis: NSTEMI Interval history: The patient currently intubated. Objective PUL Vital signs: Last Vital Signs Temp 99.2 F 06/27/19 04:00 Pulse 80 06/27/19 06:00 Resp 18 06/27/19 06:00 BP 101/53 06/27/19 06:00 Pulse Ox 94 06/27/19 06:00 General appearance: no acute distress Eyes: nonicteric ENT: other (ET tube in place) Neck: no lymphadenopathy, no JVD Effort: normal Auscultation: bilateral: clear Cardiovascular: regular rate and rhythm Gastrointestinal: hypoactive bowel sounds, soft, non-distended Integumentary: normal Extremities: no cyanosis, edema Musculoskeletal: no deformities unable to assess due to mental status Ventilator Settings Ventilator Settings: Ventilator Settings, Last 8 Hours Ventilator Tidal Volume 400 Setting Ventilator Tidal Volume 400 Setting Ventilator Tidal Volume 400 Setting Ventilator Tidal Volume 400 Setting Ventilator Tidal Volume 400 Setting Ventilator Tidal Volume 400 Setting Ventilator Tidal Volume 400 Setting Ventilator Tidal Volume 400 Setting Ventilator Tidal Volume 400 Setting Ventilator Tidal Volume 400 Setting Ventilator Tidal Volume 400 Setting Ventilator Respiratory Rate 18 Setting Ventilator Respiratory Rate 18 Setting Ventilator Respiratory Rate 18 Setting Ventilator Respiratory Rate 18 Setting Ventilator Respiratory Rate 18 Setting Ventilator Respiratory Rate 18 Setting Ventilator Respiratory Rate 18 Setting Ventilator Respiratory Rate 18 Setting Ventilator Respiratory Rate 18 Setting Ventilator Respiratory Rate 18 Setting Ventilator Respiratory Rate 18 Setting Actual Respiratory Rate 18 Actual Respiratory Rate 18 Actual Respiratory Rate 18 Actual Respiratory Rate 18 Actual Respiratory Rate 19 Actual Respiratory Rate 18 Actual Respiratory Rate 18 Actual Respiratory Rate 18 Actual Respiratory Rate 18 Actual Respiratory Rate 18 Positive End Expiratory 10 Pressure Positive End Expiratory 10 Pressure Positive End Expiratory 10 Pressure Positive End Expiratory 10 Pressure Positive End Expiratory 10 Pressure Positive End Expiratory 10 Pressure Positive End Expiratory 10 Pressure Positive End Expiratory 10 Pressure Positive End Expiratory 10 Pressure Positive End Expiratory 10 Pressure Positive End Expiratory 10 Pressure Peak Inspiratory Airway 22 Pressure Peak Inspiratory Airway 23 Pressure Peak Inspiratory Airway 22 Pressure Peak Inspiratory Airway 22 Pressure Peak Inspiratory Airway 23 Pressure Peak Inspiratory Airway 26 Pressure Peak Inspiratory Airway 26 Pressure Peak Inspiratory Airway 23 Pressure Peak Inspiratory Airway 25 Pressure Peak Inspiratory Airway 24 Pressure Results - Laboratory Findings CBC and BMP: 06/27/19 04:45 06/27/19 04:45 ABG ABG pH 7.32 pH Units (7.32-7.45) 06/27/19 05:22 ABG pCO2 48 mmHg (35-45) H 06/27/19 05:22 ABG pO2 72 mmHg (85-104) L 06/27/19 05:22 ABG O2 Saturation 93 % (95-98) L 06/27/19 05:22 PT/INR, D-dimer PT 13.8 Seconds (9.4-12.1) H 06/24/19 14:04 D-Dimer 1475 ng/mLFEU (0-500) H 06/20/19 09:58 Abnormal lab findings: Abnormal lab results WBC 18.4 K/mcL (4.3-11.1) H 06/27/19 04:45 RBC 2.92 M/mcL (3.82-4.97) L 06/27/19 04:45 Hgb 9.4 g/dL (11.5-15.4) L 06/27/19 04:45 Hct 31.0 % (35.3-44.9) L 06/27/19 04:45 MCV 106.2 fL (83.0-100.0) H 06/27/19 04:45 MCHC 30.3 g/dL (31.6-35.5) L 06/27/19 04:45 Band Neutrophils % 8.0 % (0-4) H 06/27/19 04:45 Neutrophils # 17.3 K/mcL (1.6-8.9) H 06/27/19 04:45 Lymphocytes # 0.4 K/mcL (0.6-4.6) L 06/25/19 03:01 Nucleated RBCs/100 WBC 0.1 /100 WBC (0) H 06/27/19 04:45 Large Platelets Present (Not Present) A 06/27/19 04:45 PT 13.8 Seconds (9.4-12.1) H 06/24/19 14:04 D-Dimer 1475 ng/mLFEU (0-500) H 06/20/19 09:58 Heparin Anti-Xa, Unfract 0.04 IU/mL (0.30-0.70) L 06/24/19 14:04 ABG pH 7.29 pH Units (7.32-7.45) L 06/26/19 05:49 ABG pCO2 48 mmHg (35-45) H 06/27/19 05:22 ABG pO2 72 mmHg (85-104) L 06/27/19 05:22 ABG O2 Saturation 93 % (95-98) L 06/27/19 05:22 ABG Base Excess -5 mEq/L (-2 to 3) L 06/26/19 05:49 Sodium 150 mEq/L (136-145) H 06/27/19 04:45 Potassium 3.4 mEq/L (3.5-5.1) L 06/24/19 14:46 Chloride 116 mEq/L (98-107) H 06/27/19 04:45 Carbon Dioxide 19 mEq/L (23-29) L 06/26/19 04:19 BUN 52 mg/dL (8-23) H 06/27/19 04:45 Creatinine 2.97 mg/dL (0.60-1.20) H 06/27/19 04:45 Est GFR ( Amer) 18 (> 60) L 06/27/19 04:45 Est GFR (Non-Af Amer) 15 (> 60) L 06/27/19 04:45 BUN/Creatinine Ratio 30 (6-26) H 06/24/19 14:46 Glucose 137 mg/dL (70-105) H 06/27/19 04:45 POC Glucose 127 mg/dL (70-99) H 06/27/19 04:26 Calculated Osmolality 326 (280-300) H 06/27/19 04:45 Lactic Acid 3.5 mmol/L (0.5-2.2) H 06/20/19 17:10 Uric Acid 8.8 mg/dL (2.3-7.6) H 06/26/19 17:20 Calcium 8.3 mg/dL (8.6-10.3) L 06/26/19 21:13 Phosphorus 2.6 mg/dL (2.7-4.5) L 06/27/19 04:45 Creatine Kinase 239 Units/L (30-223) H 06/26/19 17:20 Troponin I 32.90 ng/mL (< 0.04) H* 06/21/19 17:12 Serum Total Protein 5.1 g/dL (6.4-8.9) L 06/27/19 04:45 Albumin 2.5 g/dL (3.5-5.7) L 06/27/19 04:45 Albumin/Globulin Ratio 1.0 (1.1-2.2) L 06/27/19 04:45 Hep Bs Antibody 3.39 mIU/mL (10.00-) L 06/26/19 17:20 - Microbiology Findings Microbiology Findings: Microbiology, Last 48 Hours 06/25/19 11:51 Sputum Culture - Preliminary Aspirate - Clinical Findings Intake & Output: Intake & Output 06/26/19 06/26/19 06/27/19 15:59 23:59 07:59 Intake Total 805 / 3979 1610 / 3979 300 / 300 Output Total 0 / 35 0 / 35 0 / 0 Balance 805 / 3944 1610 / 3944 300 / 300 Weight 139 kg Consult Discharge Plan - Plan Referrals: Juan Randall DO [Primary Care Provider] - <Dani Adams - Last Filed: 06/27/19 20:26> Date of Encounter: 06/27/19 Objective PUL Vital signs: Last Vital Signs Temp 99.4 F 06/27/19 16:00 Pulse 120 06/27/19 18:00 Resp 24 06/27/19 18:00 BP 109/93 06/27/19 18:00 Pulse Ox 93 06/27/19 18:00 Ventilator Settings Ventilator Settings: Ventilator Settings, Last 8 Hours Ventilator Tidal Volume 400 Setting Ventilator Tidal Volume 400 Setting Ventilator Tidal Volume 400 Setting Ventilator Tidal Volume 400 Setting Ventilator Tidal Volume 400 Setting Ventilator Tidal Volume 400 Setting Ventilator Tidal Volume 400 Setting Ventilator Tidal Volume 400 Setting Ventilator Respiratory Rate 18 Setting Ventilator Respiratory Rate 18 Setting Ventilator Respiratory Rate 18 Setting Ventilator Respiratory Rate 18 Setting Ventilator Respiratory Rate 18 Setting Ventilator Respiratory Rate 18 Setting Ventilator Respiratory Rate 18 Setting Ventilator Respiratory Rate 18 Setting Actual Respiratory Rate 22 Actual Respiratory Rate 22 Actual Respiratory Rate 22 Actual Respiratory Rate 22 Actual Respiratory Rate 22 Actual Respiratory Rate 24 Actual Respiratory Rate 18 Actual Respiratory Rate 18 Positive End Expiratory 10 Pressure Positive End Expiratory 10 Pressure Positive End Expiratory 10 Pressure Positive End Expiratory 10 Pressure Positive End Expiratory 10 Pressure Positive End Expiratory 10 Pressure Positive End Expiratory 10 Pressure Positive End Expiratory 10 Pressure Peak Inspiratory Airway 21 Pressure Peak Inspiratory Airway 22 Pressure Peak Inspiratory Airway 21 Pressure Peak Inspiratory Airway 19 Pressure Peak Inspiratory Airway 21 Pressure Peak Inspiratory Airway 24 Pressure Peak Inspiratory Airway 24 Pressure Peak Inspiratory Airway 25 Pressure Results - Laboratory Findings CBC and BMP: 06/27/19 04:45 06/27/19 04:45 ABG ABG pH 7.32 pH Units (7.32-7.45) 06/27/19 05:22 ABG pCO2 48 mmHg (35-45) H 06/27/19 05:22 ABG pO2 72 mmHg (85-104) L 06/27/19 05:22 ABG O2 Saturation 93 % (95-98) L 06/27/19 05:22 PT/INR, D-dimer PT 13.8 Seconds (9.4-12.1) H 06/24/19 14:04 D-Dimer 1475 ng/mLFEU (0-500) H 06/20/19 09:58 Abnormal lab findings: Abnormal lab results WBC 18.4 K/mcL (4.3-11.1) H 06/27/19 04:45 RBC 2.92 M/mcL (3.82-4.97) L 06/27/19 04:45 Hgb 9.4 g/dL (11.5-15.4) L 06/27/19 04:45 Hct 31.0 % (35.3-44.9) L 06/27/19 04:45 MCV 106.2 fL (83.0-100.0) H 06/27/19 04:45 MCHC 30.3 g/dL (31.6-35.5) L 06/27/19 04:45 Band Neutrophils % 8.0 % (0-4) H 06/27/19 04:45 Neutrophils # 17.3 K/mcL (1.6-8.9) H 06/27/19 04:45 Lymphocytes # 0.4 K/mcL (0.6-4.6) L 06/25/19 03:01 Nucleated RBCs/100 WBC 0.1 /100 WBC (0) H 06/27/19 04:45 Large Platelets Present (Not Present) A 06/27/19 04:45 PT 13.8 Seconds (9.4-12.1) H 06/24/19 14:04 D-Dimer 1475 ng/mLFEU (0-500) H 06/20/19 09:58 Heparin Anti-Xa, Unfract 0.04 IU/mL (0.30-0.70) L 06/24/19 14:04 ABG pH 7.29 pH Units (7.32-7.45) L 06/26/19 05:49 ABG pCO2 48 mmHg (35-45) H 06/27/19 05:22 ABG pO2 72 mmHg (85-104) L 06/27/19 05:22 ABG O2 Saturation 93 % (95-98) L 06/27/19 05:22 ABG Base Excess -5 mEq/L (-2 to 3) L 06/26/19 05:49 Sodium 150 mEq/L (136-145) H 06/27/19 04:45 Potassium 3.4 mEq/L (3.5-5.1) L 06/24/19 14:46 Chloride 116 mEq/L (98-107) H 06/27/19 04:45 Carbon Dioxide 19 mEq/L (23-29) L 06/26/19 04:19 BUN 52 mg/dL (8-23) H 06/27/19 04:45 Creatinine 2.97 mg/dL (0.60-1.20) H 06/27/19 04:45 Est GFR ( Amer) 18 (> 60) L 06/27/19 04:45 Est GFR (Non-Af Amer) 15 (> 60) L 06/27/19 04:45 BUN/Creatinine Ratio 30 (6-26) H 06/24/19 14:46 Glucose 137 mg/dL (70-105) H 06/27/19 04:45 POC Glucose 147 mg/dL (70-99) H 06/27/19 07:43 Calculated Osmolality 326 (280-300) H 06/27/19 04:45 Lactic Acid 3.5 mmol/L (0.5-2.2) H 06/20/19 17:10 Uric Acid 8.8 mg/dL (2.3-7.6) H 06/26/19 17:20 Calcium 8.3 mg/dL (8.6-10.3) L 06/26/19 21:13 Phosphorus 2.6 mg/dL (2.7-4.5) L 06/27/19 04:45 Creatine Kinase 239 Units/L (30-223) H 06/26/19 17:20 Troponin I 32.90 ng/mL (< 0.04) H* 06/21/19 17:12 Serum Total Protein 5.1 g/dL (6.4-8.9) L 06/27/19 04:45 Albumin 2.5 g/dL (3.5-5.7) L 06/27/19 04:45 Albumin/Globulin Ratio 1.0 (1.1-2.2) L 06/27/19 04:45 Hep Bs Antibody 3.39 mIU/mL (10.00-) L 06/26/19 17:20 - Microbiology Findings Microbiology Findings: Microbiology, Last 48 Hours 06/25/19 11:51 Sputum Culture - Preliminary Aspirate - Clinical Findings Intake & Output: Intake & Output 06/27/19 06/27/19 06/27/19 07:59 15:59 23:59 Intake Total 624 / 3280 1710 / 3280 946 / 3280 Output Total 0 / 1171 50 / 1171 1121 / 1171 Balance 624 / 2109 1660 / 2109 -175 / 2109 Weight 139 kg 139 kg - Attending Attestation Attending Attestation I saw and evaluated this patient and my medical decision-making was reviewed with the Resident Physician. I agree with the documented findings, disposition and treatment plan as described except to the extent set forth below. We independently had [id number] contact with the patient I spent 0 minutes of Critical Care time with this patient. It involved decision making of high complexity to assess, manipulate, and support vital organ system failure and/or to prevent further life threatening deterioration of the patient's condition. The time involved in the performance of separately reportable procedures was not counted toward critical care time. Patient seen and examined at bedside Labs, radiology, chart personally reviewed. Management was reviewed during multidisciplinary critical care rounds. SOLE STITCHER HAND: Patient is sedated ventilated and not following commands we will give sedation free holidays . Patient has a background of encephalopathy. Pulm: Patient has requiring high FiO2 chest x-ray shows bilateral interstitial pulmonary edema slightly diastolic heart failure will increase the PEEP to 10 cm of water and decrease FiO2. Once V/Q mismatch is stable will come down on the PEEP to 8 the background diuresis hopefully she will be extubated in one or 2 days. 06/26 patient has acceptable oxygenation and ventilation will do low tidal volume strategy with permissive hypercapnia. Patient still requiring high oxygen requirement will decrease PEEP and reduce the FiO2 patient has fluid overload with interstitial pulmonary edema with acute kidney injury with oliguria patient might need ultrafiltration with dialysis due to weekend liberated from mechanical ventilation. 06/27 patient needing increasing oxygen requirements with increased PEEP and FiO2. Counseled the nephrology most likely continuous venovenous hemodiafiltration. Cards: Patient needing minimal dose of vasopressor therapy patient had STEMI with stent to the LAD to continue Aggrenox and rectal aspirin once she is taking by mouth we will change to aspirin and Plavix at that point to continue the current regimen and according to cardiology team. 06/27 to monitor closely over the hemodynamics. FEN-GI: Patient is nothing by mouth because of the small bowel obstruction nutrition according to surgery. We will try that first for nutrition. Renal: Labs and output reviewed patient has hypernatremia and hypercholremia to continue hypotonic sodium bicarbonate. ID: To cover with broad-spectrum antibiotics for intra-abdominal surgery. Patient shock is persistent will consider adding antifungals. Heme/Onc: Labs reviewed Endo: Glucose Monitored Integ/MSK: Skin Care per routine ICU Nursing Protocol to prevent ulcers. Lines: All lines examined without evidence of infection : Dispo: critically ill CODE: DNR CCA with intubation
[2019-06-27] MEDS ORDERED: Sodium Bicarbonate 50 MEQ in D5% in Water 1,000 ML IVC SCH (07:45)
[2019-06-27] MEDS ORDERED: *HR* Heparin 5,000 UNIT/ML VIAL IV PRN (07:46)
[2019-06-27] MEDS: Norepinephrine 4 MG in 0.9 % Sodium Chloride 250 ML IVC SCH (07:57)
[2019-06-27] MEDS ORDERED: 0.9 % Sodium Chloride 1,000 ML PRIME SCH (08:00)
[2019-06-27] MEDS: Chlorhexidine Rinse 15 ML MOUTHWASH MM SCH ×2 (08:11→20:23)
[2019-06-27] MEDS ORDERED: Albumin 25% 25gram/100mL 25 GM/100 ML IV.SOLN IVPB ONE (08:37)
[2019-06-27] MEDS: MetroNIDAZOLE 500 MG/100 ML 500 MG/100 ML BAG IVPB SCH ×3 (09:09→23:03)
--- NOTE | 2019-06-27 09:38 | AcuteCareSurgery Progress Note ---
Date of Encounter: 06/27/19 Time of Encounter: 09:37 - Assessment and Plan (1) Small bowel obstruction Current Visit: Yes Status: Acute POD#3 SBR. Patient currently on TPN. Continue conservative management at this time. Continue with daily dressing changes. Subjective Patient reports: other (Patient intubated, sedated. On IV pressors.) Objective Vital Signs - Last 8 Hours Temp Pulse Resp BP Pulse Ox 06/27/19 08:53 18 106/53 92 06/27/19 08:26 99.0 F 06/27/19 07:27 18 97/51 91 06/27/19 06:00 80 18 101/53 94 06/27/19 05:25 18 93 06/27/19 05:00 80 18 104/54 94 06/27/19 04:00 99.2 F 80 18 102/56 93 06/27/19 03:39 18 91 06/27/19 03:00 80 18 100/54 91 06/27/19 02:00 78 18 99/56 90 Intake and Output 06/26/19 06/27/19 06/27/19 23:59 07:59 15:59 Intake Total 1610 / 3979 624 / 624 Output Total 0 / 35 0 / 50 50 / 50 Balance 1610 / 3944 624 / 574 -50 / 574 Intake: IV Fluids 1610 / 3979 624 / 624 FentaNYL (PF) 1,000 MCG In 0.9 100 / 300 200 / 200 % Sodium Chloride 80 ML @ 25 MCG/HR 2.5 mls/hr IVC CONT [facility] Rx#:[id number] Versed 50 MG In 0.9 % Sodium 100 / 100 Chloride 90 ML @ 2 MG/HR 4 mls/ hr IVC CONT [facility] Rx#:[id number] Levophed 4 MG In 0.9 % Sodium 224 / 224 Chloride 250 ML @ 5 MCG/MIN 19. 05 mls/hr IVC CONT [facility] Rx#: [id number] Sodium Bicarbonate 150 MEQ In 1150 / 1150 Dextrose 5% 1,000 ML @ 100 mls/ hr IVC .[id number] [facility] Rx#: [id number] Aggrastat 12.5 MG/250 ML 12.5 250 / 250 mg In 250 ml @ 0.075 MCG/KG/MIN 11.394 mls/hr IVC .[id number] [facility] Rx#:[id number] Maxipime 1,000 MG In Water for inj. (sterile) 10 ML @ 300 mls/ hr IVP Q12H [facility] Rx#:[id number] Flagyl Premix 500 MG/100 ML 500 100 / 300 100 / 100 mg In 100 ml @ 100 mls/hr IVPB Q8HR [facility] Rx#:[id number] Output: Catheter 0 / 35 0 / 0 0 / 0 Gastric Drainage 0 / 0 50 / 50 Other: Weight 139 kg Blood Glucose* 125 127 147 - General physical appearance no distress - Abdomen Abdomen: Present: soft (No present bowel sounds. Unable to assess presence of pain due to patient's sedation and intubated status. NG tube in place.) - Labs 06/27/19 04:45 06/27/19 04:45 Diabetes panel 06/26/19 06/26/19 06/27/19 Range/Units 17:20 21:13 04:45 Sodium 149 H 147 H 150 H (136-145) mEq/L Potassium 3.7 3.7 3.6 (3.5-5.1) mEq/L Chloride 117 H 118 H 116 H (98-107) mEq/L Carbon Dioxide 25 24 23 (23-29) mEq/L BUN 47 H 49 H 52 H (8-23) mg/dL Creatinine 2.92 H 2.85 H 2.97 H (0.60-1.20) mg/dL Glucose 143 H 149 H 137 H (70-105) mg/dL Calcium 8.8 8.3 L 8.8 (8.6-10.3) mg/dL AST 17 (13-39) Units/L ALT 13 (7-52) Units/L Alkaline Phosphatase 71 (34-104) Units/L Albumin 2.5 L (3.5-5.7) g/dL Calcium panel 06/26/19 06/26/19 06/27/19 Range/Units 17:20 21:13 04:45 Calcium 8.8 8.3 L 8.8 (8.6-10.3) mg/dL Phosphorus 2.6 L (2.7-4.5) mg/dL Albumin 2.5 L (3.5-5.7) g/dL Pituitary panel 09/08/0406/26/19 06/27/19 Range/Units 17:20 21:13 04:45 Sodium 149 H 147 H 150 H (136-145) mEq/L Potassium 3.7 3.7 3.6 (3.5-5.1) mEq/L Chloride 117 H 118 H 116 H (98-107) mEq/L Carbon Dioxide 25 24 23 (23-29) mEq/L BUN 47 H 49 H 52 H (8-23) mg/dL Creatinine 2.92 H 2.85 H 2.97 H (0.60-1.20) mg/dL Glucose 143 H 149 H 137 H (70-105) mg/dL Calcium 8.8 8.3 L 8.8 (8.6-10.3) mg/dL Adrenal panel 06/26/19 06/26/19 06/27/19 Range/Units 17:20 21:13 04:45 Sodium 149 H 147 H 150 H (136-145) mEq/L Potassium 3.7 3.7 3.6 (3.5-5.1) mEq/L Chloride 117 H 118 H 116 H (98-107) mEq/L Carbon Dioxide 25 24 23 (23-29) mEq/L BUN 47 H 49 H 52 H (8-23) mg/dL Creatinine 2.92 H 2.85 H 2.97 H (0.60-1.20) mg/dL Glucose 143 H 149 H 137 H (70-105) mg/dL Calcium 8.8 8.3 L 8.8 (8.6-10.3) mg/dL Total Bilirubin 0.4 (0.3-1.0) mg/dL AST 17 (13-39) Units/L ALT 13 (7-52) Units/L Alkaline Phosphatase 71 (34-104) Units/L Albumin 2.5 L (3.5-5.7) g/dL Consult Discharge Plan - Plan Referrals: Juan Randall DO [Primary Care Provider] -
[2019-06-27] MEDS ORDERED: Potassium Phosphate 44 MEQ in 0.9 % Sodium Chloride 250 ML IVPB ONE (10:49)
[2019-06-27] MEDS: Pantoprazole 40 MG VIAL IVP SCH ×2 (11:14→23:03)
--- NOTE | 2019-06-27 11:32 | Cardiology Progress Note ---
Date of Encounter: 06/27/19 Time of Encounter: 11:30 Assessment and Plan (1) Small bowel obstruction Current Visit: Yes Status: Acute 1. S/P small bowel resection. Remains NPO with NG tube in place and mechanically ventilated. On vasopressor support. Management per primary service. (2) NSTEMI (non-ST elevated myocardial infarction) Current Visit: Yes Status: Acute Previous note reviewed: 1. [facility] 06/21/19 successful PCTA/SKIP to prox LAD without ischemic changes. Previously recommended continue ASA and Plavix due to high risk of stent thrombosis. 2. Per Dr. 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 Dr. Kaufman started Aggrastat. Discussed with Pharmacy, Cangrelor not on formulary. Previoously discussed with Dr. Cortes as well and remained on Aggrastat and placed on rectal ASA. 4. BB, ACEI off at moment-- now on vasopressor support; recs to resume when able. Statin intolerant will need pravastatin (RX at DC). 5. Remains NPO per surgery related to Small bowel resection POD -2. Previously disussed with Dr. Jones, discussed with Dr. Cortes today; will continue renal dose Aggrastat gtt and ASA rectal dose for now. Will need to monitor closely for instent re-thrombosis. 6. Continue to recommend ASA and Plavix PO when able. Will continue to follow. Staff note difficult clinical situation with fresh coronary stent and now no oral intake due to small bowel obstruction and surgery. She is receiving aspirin via MA Route. The short-term use of IIb IIIa inhibitor is reasonable for now but should be transitioned quickly to an oral agent. (3) Hypertension Current Visit: Yes Status: Chronic 1. Remains in ICU, mechanically ventilated and sedated. 2. Currently on vasopressor support. BB and ACEI stopped per primary team. 2. Remains NPO pending surgery recs. Qualifiers: Hypertension type: essential hypertension Qualified Code(s): I10 - Essential (primary) hypertension Discussion w patient/family: The assessment and plan as outlined above was discussed with the patient and/or family members who expressed understanding and agreement. All questions were answered. Thank you for involving us in the care of your patient. Please call with any questions. Subjective Principal diagnosis: NSTEMI Interval history: Currently intubated and sedate. On vasopressor support. Objective Vital Signs, Last 4 Hours Temp Pulse Resp BP Pulse Ox 06/27/19 11:03 18 90 06/27/19 11:00 76 18 105/53 92 06/27/19 10:00 77 18 97/62 95 06/27/19 09:00 77 18 98/53 94 06/27/19 08:53 18 106/53 92 06/27/19 08:26 99.0 F 06/27/19 08:00 77 General: Other (intubated and sedated. ) HEENT: Atraumatic, Normocephaly, Mucus Membranes Moist Neck: No JVD, Normal carotid pulses Cardiac: Reg Rate and Rhythm, Normal S1 and S2, No Murmur Neuro: Other (sedated) Abdomen: Other (recent SBR) Skin: No rashes noted on visualized skin Musculoskeletal: No Chest Wall Tenderness Extremities: Other (bilat lower 2+pittiing edema. ) Results 06/27/19 04:45 06/27/19 04:45 Lab Results Laboratory Tests 06/27/19 06/27/19 04:45 04:45 WBC 18.4 H Hgb 9.4 L Hct 31.0 L BUN 52 H Creatinine 2.97 H Est GFR (Non-Af Amer) 15 L Calculated Osmolality 326 H Laboratory Tests 06/20/19 06/20/19 06/21/19 09:58 15:59 16:00 Troponin I < 0.03 < 0.03 30.41 H* 06/21/19 17:12 Troponin I 32.90 H* Echocardiogram 06/21/19 12:02 Impressions: LVEF 40-45%. Normal LV chamber size. Basal sigmoid septum. Segmental left ventricular systolic dysfunction. Mild left ventricular diastolic dysfunction. There is no LV thrombus. Normal right ventricular structure and function. Moderately calcified aortic valve leaflets. Mild aortic stenosis by Doppler. Mean gradient 9 mmHg. Mild tricuspid regurgitation. Moderate pulmonary hypertension. Estimated RVSP is 54 mmHg. Left Ventricular Wall Motion: Rest Echo Findings The apex, apical inferior, apical septal and mid anterior septal tijer[place] were hypokinetic. All other wall segments showed normal motion. Echocardiogram Limited Views 06/23/19 08:00 Impressions: LVEF 40-45%. Normal LV chamber size. Basal sigmoid septum. Segmental left ventricular systolic dysfunction. There is no LV thrombus. Normal right ventricular structure and function. Left Ventricular Wall Motion: Rest Echo Findings The apex, apical inferior, apical anterior, apical septal and mid anterior septal tijer[place] were hypokinetic. All other wall segments showed normal motion. Active Medications Artificial Tears (Akwa Tears) 1 drop BOTH EYES Q2HR PRN; Protocol PRN Reason: Dry Eyes Stop: 12/25/19 10:43 Artificial Tears (Akwa Tears) 1 drop BOTH EYES Q4HR FROY; Protocol Stop: 12/25/19 12:01 Last Admin: 06/27/19 08:04 Dose: 1 drop Documented by: Aspirin (Aspirin) 300 mg RC DAILY [facility] Stop: 12/25/19 11:49 Last Admin: 06/27/19 08:11 Dose: 300 mg Documented by: Chlorhexidine Gluconate (Chlorhexidine Rinse) 15 ml MM BID [facility] Stop: 12/25/19 21:01 Last Admin: 06/27/19 08:11 Dose: 15 ml Documented by: Dextrose/Water (Dextrose 50% (Syg)) 25 ml IVP AD PRN PRN Reason: Hypoglycemia Stop: 12/25/19 10:40 Glucagon (Glucagen) 1 mg IM ONCE PRN PRN Reason: Hypoglycemia Stop: 12/25/19 10:40 Glucose (Gluctose) 15 gm PO ONCE PRN PRN Reason: Hypoglycemia Stop: 12/25/19 10:40 Glucose (Gluctose) 30 gm PO ONCE PRN PRN Reason: Hypoglycemia Stop: 12/25/19 10:40 Heparin Sodium (Porcine) (Heparin) 5,000 unit SQ Q8HCO [facility]; Protocol Stop: 12/26/19 14:01 Last Admin: 06/27/19 05:38 Dose: 5,000 unit Documented by: Heparin Sodium (Porcine) (Heparin) 0 unit IV ONCE PRN PRN Reason: SEE COMMENTS Stop: 12/27/19 07:47 Metronidazole (Flagyl Premix 500 Mg/100 Ml) 500 mg in 100 mls @ 100 mls/hr IVPB Q8HR [facility] Stop: 12/24/19 12:01 Last Infusion: 06/27/19 10:10 Dose: Infused Documented by: Tirofiban/Sodium Chloride (Aggrastat 12.5 Mg/250 Ml) 12.5 mg in 250 mls @ 11.394 mls/hr IVC .[id number] [facility] Stop: 12/24/19 20:31 Last Admin: 06/26/19 16:03 Dose: 0.075 mcg/kg/min, 11.4 mls/hr Documented by: Fentanyl Citrate 1,000 mcg/ (Sodium Chloride) 100 mls @ 2.5 mls/hr IVC CONT [facility]OY; Protocol Stop: 12/24/19 19:16 Last Admin: 06/27/19 07:55 Dose: 150 mcg/hr, 15 mls/hr Documented by: Midazolam HCl 50 mg/ Sodium (Chloride) 100 mls @ 4 mls/hr IVC CONT [facility]OY; Protocol Stop: 12/24/19 19:16 Last Admin: 06/27/19 01:26 Dose: 5 mg/hr, 10 mls/hr Documented by: Norepinephrine Bitartrate 4 mg (/ Sodium Chloride) 254 mls @ 19.05 mls/hr IVC CONT FROY; Protocol Stop: 12/24/19 13:01 Last Admin: 06/27/19 07:57 Dose: 3 mcg/min, 11.4 mls/hr Documented by: Dextrose (Dextrose 5%) 1,000 mls @ 100 mls/hr IVC .Q10H PRN PRN Reason: HYPOGLYCEMIA Stop: 12/25/19 10:40 Dextrose (Dextrose 10% Water 500 Ml Ivbag) 500 mls @ 50 mls/hr IVC .Q10H PRN PRN Reason: TPN delayed or interrupted Stop: 12/26/19 10:48 Multivitamins 10 ml/ Amino (Acids/Electrolytes) 2,010 mls @ 20 mls/hr IVC .Q24H ONE; Protocol Stop: 06/27/19 16:59 Last Admin: 06/26/19 16:52 Dose: 20 ml/hr, 20 mls/hr Documented by: Cefepime HCl 1,000 mg/ Sterile (Water) 10 mls @ 300 mls/hr IVP Q24H [facility] Stop: 12/27/19 16:01 Sodium Bicarbonate 50 meq/ (Dextrose) 1,050 mls @ 200 mls/hr IVC .Q5H15M [facility] Stop: 12/27/19 07:46 Last Admin: 06/27/19 10:12 Dose: 200 mls/hr Documented by: Sodium Chloride (0.9 % Sodium Chloride) 20 mls @ 0 mls/hr IV CONT [facility]OY Stop: 12/27/19 08:01 Sodium Chloride (0.9 % Sodium Chloride) 1,000 mls @ 0 mls/hr PRIME .Q0M [facility]OY Stop: 12/27/19 08:01 CRRT Dialysis Solution (Prismasate Bgk 4/2.5) 5,000 mls @ 1,250 mls/hr CRRT CONT [facility] Stop: 12/27/19 08:01 CRRT Dialysis Solution (Prismasate Bgk 4/2.5) 5,000 mls @ 1,250 mls/hr CRRT CONT [facility] Stop: 12/27/19 08:01 Potassium Phosphate 44 meq/ (Sodium Chloride) 260 mls @ 40 mls/hr IVPB ONCE ONE Stop: 06/27/19 17:18 Last Admin: 06/27/19 11:22 Dose: 40 mls/hr Documented by: Fat Emulsion Intravenous (Intralipid 20%) 250 mls @ 21 mls/hr IVPB DAILY@1700 S Stop: 12/27/19 17:01 Multivitamins 10 ml/ Amino (Acids/Electrolytes) 2,010 mls @ 50 mls/hr IVC .Q24H [facility]; Protocol Stop: 06/28/19 16:59 Insulin Human Lispro (Humalog) 0 units SQ Q4HR [facility]; Protocol Stop: 12/26/19 20:01 Last Admin: 06/27/19 08:05 Dose: 2 units Documented by: Metoprolol Tartrate (Lopressor) 5 mg IVP Q6HR PRN PRN Reason: tachycardia Stop: 12/26/19 05:02 Last Admin: 06/26/19 05:11 Dose: 5 mg Documented by: Naloxone HCl (Narcan) 0.4 mg IVP Q2MPRN PRN PRN Reason: SEE COMMENTS Stop: 12/20/19 15:35 Nitroglycerin (Nitroglycerin) 0.4 mg SL Q5MPRN PRN PRN Reason: Chest Pain Stop: 12/22/19 13:43 Ondansetron HCl (Zofran) 4 mg IVP Q6HR PRN PRN Reason: Nausea And Vomiting Stop: 12/23/19 03:24 Oxycodone HCl (Oxycodone Oral Conc) 5 mg SL Q4H PRN; Protocol PRN Reason: mild to moderate pain Stop: 12/20/19 15:35 Oxycodone HCl (Oxycodone Oral Conc) 10 mg SL Q4H PRN; Protocol PRN Reason: Severe Pain Stop: 12/23/19 17:44 Pantoprazole Sodium (Protonix) 40 mg IVP Q12H [facility] Stop: 12/25/19 12:01 Last Admin: 06/27/19 11:14 Dose: 40 mg Documented by: - Imaging and Cardiology Chest Xray: report reviewed Echo: report reviewed Cardiac cath: report reviewed - EKG Interpretation EKG results cardiology: sinus rhythm (sinus tach) Consult Discharge Plan - Plan Referrals: Juan Randall DO [Primary Care Provider] -
[2019-06-27] MEDS ORDERED: *HR* Heparin 5,000 UNIT/ML VIAL ONE (13:55)
[2019-06-27] MEDS: Tirofiban 12.5 MG/250ML 12.5 MG/250 ML BAG IVC SCH (14:27)
[2019-06-27] MEDS: PrismaSATE BGK 4/2.5 5,000 ML CRRT SCH ×8 (14:53→23:25)
[2019-06-27] MEDS ORDERED: Cefepime HCl 1,000 MG in Water for inj. (sterile) 10 ML IVP SCH (16:00)
[2019-06-27] MEDS: *HR* Metoprolol 5 MG/5 ML VIAL IVP PRN (16:38)
[2019-06-27] MEDS ORDERED: Clinimix E 5%-15% SOLUTION 2,000 ML with MVI, adult with vitamin K 10 ML IVC SCH (17:00)
[2019-06-27] MEDS ORDERED: Acetaminophen 650 MG RECTAL SUPP RC ONE (19:57)
[2019-06-28 00:47] LABS: Color,Urine Brown (Yellow)
[2019-06-28 00:48] LABS: Bilirubin,Urine Moderate (Negative); Blood,Urine Large (Negative); Clarity,Urine Turbid (Clear); Glucose,Urine (UA) Normal (Normal); Ketones,Urine 15 mg/dL (Negative); Leukocyte Esterase,Urine Small (Negative); Nitrite,Urine Positive (Negative); PH,Urine 5.5 pH Units (5.0-8.0); Potassium,Urine 45.5 mEq/L; Protein,Urine 100 mg/dL (Neg-Trace); Sodium, Urine 32.5 mEq/L; Specific Gravity,Urine 1.029 (1.010-1.025); Urobilinogen,Urine Normal (Normal)
[2019-06-28] MEDS: Insulin LISPRO 300 UNITS/3 ML VIAL SQ SCH ×2 (03:56→10:42)
[2019-06-28] MEDS: Artificial Tears SOLN 15 ML BOTTLE BOTH EYES SCH ×3 (03:56→12:42)
[2019-06-28 04:10] LABS: Phosphorous 2.5 mg/dL (2.7-4.5); Potassium 3.7 mEq/L (3.5-5.1)
[2019-06-28] MEDS: PrismaSATE BGK 4/2.5 5,000 ML CRRT SCH ×2 (04:45)
[2019-06-28 05:02] LABS: Eosinophils # 0.4 K/mcL (0.0-0.6); Hematocrit 29.6 % (35.3-44.9); Hemoglobin 9.4 g/dL (11.5-15.4); Lymphocytes # 0.8 K/mcL (0.6-4.6); Mean Corpuscular HGB Conc 31.8 g/dL (31.6-35.5); Mean Corpuscular Hemoglobin 32.4 pg (28.0-33.3); Mean Corpuscular Volume 102.1 fL (83.0-100.0); Nucleated Red Blood Cells 0.2 /100 WBC (0)
[2019-06-28 05:06] LABS: Platelet Count < 2 K/mcL (140-400)
[2019-06-28] MEDS ORDERED: 0.9 % Sodium Chloride 250 ML IVC SCH (05:15)
[2019-06-28] MEDS ORDERED: *HR* Heparin 5,000 UNIT/ML VIAL ONE (05:20)
[2019-06-28] MEDS: *HR* Heparin 5,000 UNIT/ML VIAL SQ SCH (05:28)
[2019-06-28 05:31] LABS: Monocytes # 2.1 K/mcL (0.0-1.3); Neutrophils # 17.2 K/mcL (1.6-8.9); Platelet Estimate Marked Decrease (Normal)
[2019-06-28 05:43] LABS: Hematocrit 29.4 % (35.3-44.9); Hemoglobin 9.5 g/dL (11.5-15.4)
[2019-06-28] MEDS: FentaNYL (PF) 1,000 MCG in 0.9 % Sodium Chloride 80 ML IVC SCH ×3 (06:10→10:50)
--- NOTE | 2019-06-28 06:11 | Event Note ---
Date of Encounter: 06/28/19 Time of Encounter: 05:59 Critical Critical lab notified platelets less than 2. On arrival to the room patient had bloody drainage from the tube, and urinary catheter, undergoing CVVHD, and on Aggrastat drip. 3 repeats was sent to the lab with EDTA and peripheral smear showing no platelet clumping and 0 platelets. Nephrology(appreciate recommendations) was contacted and agreed to discontinue CVVHD. Cardiology was contacted(appreciate recommendations) and agreed to discontinue Aggrastat IV, restart birlinta due to recent SKIP placement and contact heme/onc. Heme/oncology(appreciate recommendations) was contacted and agreed with platelet transfusion with goal 50-60. Noted patient has not passed any bowel movement, and hypoactive bowel sounds on exam-x-ray abdomen, HHq 6hour were ordered. Family was contacted and updated on the clinical course and changes that was done overnight.
--- NOTE | 2019-06-28 07:09 | Pulmonology Progress Note ---
<Rell Leahy - Last Filed: 06/28/19 09:31> Date of Encounter: 06/28/19 Time of Encounter: 06:57 Subjective Principal diagnosis: NSTEMI Interval history: The patient is an 83-year-old female past medical history of hypertension, chronic renal replacement therapy, currently on aspirin, losartan/hydrochlorothiazide, metoprolol succinate who presented to [facility] ED on June 202018 for complaint of nausea vomiting and diaphoresis which had started the last evening. Initial EKG evaluation in the emergency department yielded anterior lead ST segment elevations without reciprocal depressions and imaging results yielded concern for a small bowel obstruction. Interventional cardiology as well as general surgery were consulted due to concerns for non-ST segment myocardial infarction and small bowel obstruction the patient was noted to hospitalist medicine service further evaluation and management. During the course of patient's hospital stay she was found to have worsening ST segment elevations in the anterior leads with a rise in her troponin noted on June 21. She was taken to the catheter lab where a left anterior descending stent was placed. 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 Surgery was performed by Dr. Satnos which the patient tolerated well. Following these interventions there was concern of ARDS versus CHF or pneumonia- subsequently the patient required mechanical ventilation after surgery, cefepime was started. On the morning of June 28 critical lab values identified a platelet value of less than 2 on laboratory analysis. Hospitalists contacted nephrology, cardiology, hematology/oncology and the following recommendations were made to discontinue the patient's CVVHD, discontinue Aggrastat drip and restart Brilinta, he woke recommended platelet transfusion with a goal of 50-60 which was placed by the hospitalist. Upon my initial evaluation on the morning of June 28 the patient remains intubated and mechanically ventilated to [place] scale of approximately 4. Cardiopulmonary auscultation unremarkable, there are hypoactive bowel sounds noted abdomen is otherwise soft nondistended, there is a large midline abdominal incision that is clean, well dressed, minor amount of blood staining noted to the dressing, scattered petechiae noticed across the abdomen as well as upper ex tremities which is consistent with thrombocytopenia. Patient's pupils are miotic but are otherwise equal and reactive. Significant peripheral edema is noted I will place stat order for repeat CBC in order to establish platelet count after 2 units were perfused approximate 5:30 this morning. Assessment and plan: 1. Acute respiratory failure with hypoxia High concern for ARDS-patient with known diastolic heart failure so CHF is also on the differential Concern for pneumonia Continue cefepime day 4 Continue mechanical ventilation 2. ST segment myocardial infarction. LAD stent placed on June 21 We have stopped Aggrastat due to thrombocytopenia Cardiology consulted and following and have switched patient to Brilinta 3. Small bowel obstruction. Surgery performed on June 24 Surgery continues to follow 4. Thrombocythemia Concern for heparin-induced thrombocytopenia DIC is also high on the differential in the setting of sepsis Possibly due to Aggrastat versus CVVHD Patient stopped CVVHD, Aggrastat, 2 units of platelets transfused on the morning of 06/28 Cardiology, nephrology and hematology/oncology R consulted and following 5. Goals of care Patient continues declining clinically We have consulted palliative care The patient's family will have a meeting today at 1 PM to discuss goals of care with palliative medicine and ICU physicians present. 6. DVT prophylaxis SCDs Objective PUL Vital signs: Last Vital Signs Temp 98.5 F 06/28/19 06:54 Pulse 94 06/28/19 06:54 Resp 18 06/28/19 06:54 BP 97/60 06/28/19 06:54 Pulse Ox 95 06/28/19 06:54 General appearance: other (Intubated and mechanically ventilated) Eyes: nonicteric ENT: oropharynx moist Auscultation: bilateral: clear Cardiovascular: regular rate and rhythm Gastrointestinal: hypoactive bowel sounds, soft, non-tender, non-distended Integumentary: normal, other (scattered petechiae) Extremities: no cyanosis, edema unable to assess due to mental status Ventilator Settings Ventilator Settings: Ventilator Settings, Last 8 Hours Ventilator Tidal Volume 400 Setting Ventilator Tidal Volume 400 Setting Ventilator Tidal Volume 400 Setting Ventilator Tidal Volume 400 Setting Ventilator Tidal Volume 400 Setting Ventilator Tidal Volume 400 Setting Ventilator Tidal Volume 400 Setting Ventilator Tidal Volume 400 Setting Ventilator Tidal Volume 400 Setting Ventilator Tidal Volume 400 Setting Ventilator Tidal Volume 400 Setting Ventilator Respiratory Rate 18 Setting Ventilator Respiratory Rate 18 Setting Ventilator Respiratory Rate 18 Setting Ventilator Respiratory Rate 18 Setting Ventilator Respiratory Rate 18 Setting Ventilator Respiratory Rate 18 Setting Ventilator Respiratory Rate 18 Setting Ventilator Respiratory Rate 18 Setting Ventilator Respiratory Rate 18 Setting Ventilator Respiratory Rate 18 Setting Ventilator Respiratory Rate 18 Setting Actual Respiratory Rate 18 Actual Respiratory Rate 18 Actual Respiratory Rate 20 Actual Respiratory Rate 19 Actual Respiratory Rate 21 Actual Respiratory Rate 21 Actual Respiratory Rate 18 Actual Respiratory Rate 20 Actual Respiratory Rate 21 Actual Respiratory Rate 19 Actual Respiratory Rate 24 Positive End Expiratory 10 Pressure Positive End Expiratory 10 Pressure Positive End Expiratory 10 Pressure Positive End Expiratory 10 Pressure Positive End Expiratory 10 Pressure Positive End Expiratory 10 Pressure Positive End Expiratory 10 Pressure Positive End Expiratory 10 Pressure Positive End Expiratory 10 Pressure Positive End Expiratory 10 Pressure Positive End Expiratory 10 Pressure Peak Inspiratory Airway 25 Pressure Peak Inspiratory Airway 26 Pressure Peak Inspiratory Airway 22 Pressure Peak Inspiratory Airway 25 Pressure Peak Inspiratory Airway 23 Pressure Peak Inspiratory Airway 24 Pressure Peak Inspiratory Airway 27 Pressure Peak Inspiratory Airway 24 Pressure Peak Inspiratory Airway 24 Pressure Peak Inspiratory Airway 27 Pressure Peak Inspiratory Airway 24 Pressure Results - Laboratory Findings CBC and BMP: 06/28/19 05:25 06/28/19 03:35 ABG ABG pH 7.32 pH Units (7.32-7.45) 06/27/19 05:22 ABG pCO2 48 mmHg (35-45) H 06/27/19 05:22 ABG pO2 72 mmHg (85-104) L 06/27/19 05:22 ABG O2 Saturation 93 % (95-98) L 06/27/19 05:22 PT/INR, D-dimer PT 13.8 Seconds (9.4-12.1) H 06/24/19 14:04 D-Dimer 1475 ng/mLFEU (0-500) H 06/20/19 09:58 Abnormal lab findings: Abnormal lab results WBC 21.0 K/mcL (4.3-11.1) H 06/28/19 04:28 RBC 2.90 M/mcL (3.82-4.97) L 06/28/19 04:28 Hgb 9.5 g/dL (11.5-15.4) L 06/28/19 05:25 Hct 29.4 % (35.3-44.9) L 06/28/19 05:25 MCV 102.1 fL (83.0-100.0) H 06/28/19 04:28 MCHC 30.3 g/dL (31.6-35.5) L 06/27/19 04:45 Plt Count < 2 K/mcL (140-400) L* D 06/28/19 04:28 Band Neutrophils % 14.0 % (0-4) H 06/28/19 04:28 Metamyelocytes % 2.0 % (0) H 06/28/19 04:28 Neutrophils # 17.2 K/mcL (1.6-8.9) H 06/28/19 04:28 Lymphocytes # 0.4 K/mcL (0.6-4.6) L 06/25/19 03:01 Monocytes # 2.1 K/mcL (0.0-1.3) H 06/28/19 04:28 Nucleated RBCs/100 WBC 0.2 /100 WBC (0) H 06/28/19 04:28 Platelet Estimate Marked Decrease (Normal) L 06/28/19 04:28 Plt Count ,Citrate 0 K/mcL (140-400) L* 06/28/19 05:16 Large Platelets Present (Not Present) A 06/27/19 04:45 PT 13.8 Seconds (9.4-12.1) H 06/24/19 14:04 D-Dimer 1475 ng/mLFEU (0-500) H 06/20/19 09:58 Heparin Anti-Xa, Unfract 0.04 IU/mL (0.30-0.70) L 06/24/19 14:04 ABG pH 7.29 pH Units (7.32-7.45) L 06/26/19 05:49 ABG pCO2 48 mmHg (35-45) H 06/27/19 05:22 ABG pO2 72 mmHg (85-104) L 06/27/19 05:22 ABG O2 Saturation 93 % (95-98) L 06/27/19 05:22 ABG Base Excess -5 mEq/L (-2 to 3) L 06/26/19 05:49 Sodium 150 mEq/L (136-145) H 06/27/19 04:45 Potassium 3.4 mEq/L (3.5-5.1) L 06/24/19 14:46 Chloride 111 mEq/L (98-107) H 06/28/19 03:35 Carbon Dioxide 19 mEq/L (23-29) L 06/26/19 04:19 BUN 37 mg/dL (8-23) H 06/28/19 03:35 Creatinine 1.99 mg/dL (0.60-1.20) H 06/28/19 03:35 Est GFR ( Amer) 29 (> 60) L 06/28/19 03:35 Est GFR (Non-Af Amer) 24 (> 60) L 06/28/19 03:35 BUN/Creatinine Ratio 30 (6-26) H 06/24/19 14:46 Glucose 151 mg/dL (70-105) H 06/28/19 03:35 POC Glucose 124 mg/dL (70-99) H 06/27/19 23:32 Calculated Osmolality 306 (280-300) H 06/28/19 03:35 Lactic Acid 3.5 mmol/L (0.5-2.2) H 06/20/19 17:10 Uric Acid 8.8 mg/dL (2.3-7.6) H 06/26/19 17:20 Calcium 8.0 mg/dL (8.6-10.3) L 06/28/19 03:35 Phosphorus 2.5 mg/dL (2.7-4.5) L 06/28/19 03:35 Creatine Kinase 239 Units/L (30-223) H 06/26/19 17:20 Troponin I 32.90 ng/mL (< 0.04) H* 06/21/19 17:12 Serum Total Protein 5.1 g/dL (6.4-8.9) L 06/27/19 04:45 Albumin 2.5 g/dL (3.5-5.7) L 06/27/19 04:45 Albumin/Globulin Ratio 1.0 (1.1-2.2) L 06/27/19 04:45 Ur Specimen Adequacy See below A 06/28/19 00:27 Urine Clarity Turbid (Clear) A 06/28/19 00:27 Ur Specific [place] 1.029 (1.010-1.025) H 06/28/19 00:27 Urine Protein 100 mg/dL (Neg-Trace) H 06/28/19 00:27 Urine Ketones 15 mg/dL (Negative) H 06/28/19 00:27 Urine Blood Large (Negative) H 06/28/19 00:27 Urine Nitrite Positive (Negative) A 06/28/19 00:27 Urine Bilirubin Moderate (Negative) H 06/28/19 00:27 Ur Leukocyte Esterase Small (Negative) H 06/28/19 00:27 Ur Culture Indicated? YES (NO) A 06/28/19 00:27 Hep Bs Antibody 3.39 mIU/mL (10.00-) L 06/26/19 17:20 - Microbiology Findings Microbiology Findings: Microbiology, Last 48 Hours 06/28/19 00:27 Urine Culture - Preliminary Urine,Clean Catch Culture is incubating. 06/25/19 11:51 Sputum Culture - Preliminary Aspirate - Clinical Findings Intake & Output: Intake & Output 06/27/19 06/27/19 06/28/19 15:59 23:59 07:59 Intake Total 1710 / 4067.2 1074.1 / 4067.2 1204.8 / 1204.8 Output Total 50 / 1754 1535 / 1754 824 / 824 Balance 1660 / 2313.2 -460.9 / 2313.2 380.8 / 380.8 Weight 139 kg 139 kg 141.6 kg Consult Discharge Plan - Plan Referrals: Juan Randall DO [Primary Care Provider] - <Dani Adams - Last Filed: 06/28/19 14:23> Date of Encounter: 06/28/19 Objective PUL Vital signs: Last Vital Signs Temp 99.1 F 06/28/19 09:35 Pulse 102 06/28/19 11:07 Resp 19 06/28/19 11:07 BP 84/54 06/28/19 11:07 Pulse Ox 100 06/28/19 11:07 Ventilator Settings Ventilator Settings: Ventilator Settings, Last 8 Hours Ventilator Tidal Volume 400 Setting Ventilator Tidal Volume 400 Setting Ventilator Tidal Volume 400 Setting Ventilator Tidal Volume 400 Setting Ventilator Tidal Volume 400 Setting Ventilator Tidal Volume 400 Setting Ventilator Tidal Volume 400 Setting Ventilator Tidal Volume 400 Setting Ventilator Respiratory Rate 18 Setting Ventilator Respiratory Rate 18 Setting Ventilator Respiratory Rate 18 Setting Ventilator Respiratory Rate 18 Setting Ventilator Respiratory Rate 18 Setting Ventilator Respiratory Rate 18 Setting Ventilator Respiratory Rate 18 Setting Ventilator Respiratory Rate 18 Setting Actual Respiratory Rate 19 Actual Respiratory Rate 22 Actual Respiratory Rate 26 Actual Respiratory Rate 25 Actual Respiratory Rate 18 Actual Respiratory Rate 18 Actual Respiratory Rate 18 Actual Respiratory Rate 18 Positive End Expiratory 12 Pressure Positive End Expiratory 12 Pressure Positive End Expiratory 12 Pressure Positive End Expiratory 12 Pressure Positive End Expiratory 12 Pressure Positive End Expiratory 12 Pressure Positive End Expiratory 12 Pressure Positive End Expiratory 10 Pressure Peak Inspiratory Airway 23 Pressure Peak Inspiratory Airway 20 Pressure Peak Inspiratory Airway 17 Pressure Peak Inspiratory Airway 21 Pressure Peak Inspiratory Airway 20 Pressure Peak Inspiratory Airway 25 Pressure Peak Inspiratory Airway 25 Pressure Peak Inspiratory Airway 25 Pressure Results - Laboratory Findings CBC and BMP: 06/28/19 10:15 06/28/19 03:35 ABG ABG pH 7.32 pH Units (7.32-7.45) 06/27/19 05:22 ABG pCO2 48 mmHg (35-45) H 06/27/19 05:22 ABG pO2 72 mmHg (85-104) L 06/27/19 05:22 ABG O2 Saturation 93 % (95-98) L 06/27/19 05:22 PT/INR, D-dimer PT 14.2 Seconds (9.4-12.1) H 06/28/19 10:15 D-Dimer 1475 ng/mLFEU (0-500) H 06/20/19 09:58 Abnormal lab findings: Abnormal lab results WBC 21.0 K/mcL (4.3-11.1) H 06/28/19 04:28 RBC 2.78 M/mcL (3.82-4.97) L 06/28/19 10:15 Hgb 9.0 g/dL (11.5-15.4) L 06/28/19 10:15 Hct 28.7 % (35.3-44.9) L 06/28/19 10:15 MCV 103.2 fL (83.0-100.0) H 06/28/19 10:15 MCHC 31.4 g/dL (31.6-35.5) L 06/28/19 10:15 Plt Count < 2 K/mcL (140-400) L* 06/28/19 10:15 Band Neutrophils % 8.0 % (0-4) H 06/28/19 10:15 Metamyelocytes % 3.0 % (0) H 06/28/19 10:15 Myelocytes % 7.0 % (0) H 06/28/19 10:15 Promyelocytes % 3.0 % (0) H 06/28/19 10:15 Neutrophils # 17.2 K/mcL (1.6-8.9) H 06/28/19 04:28 Lymphocytes # 0.3 K/mcL (0.6-4.6) L 06/28/19 10:15 Monocytes # 2.1 K/mcL (0.0-1.3) H 06/28/19 04:28 Nucleated RBCs/100 WBC 1.1 /100 WBC (0) H 06/28/19 10:15 Toxic Granulation Present (Not Present) A 06/28/19 10:15 Platelet Estimate Marked Decrease (Normal) L 06/28/19 10:15 Plt Count ,Citrate 0 K/mcL (140-400) L* 06/28/19 05:16 Large Platelets Present (Not Present) A 06/27/19 04:45 Immature Plt Fraction 0.0 % (1.1-6.1) L 06/28/19 10:15 PT 14.2 Seconds (9.4-12.1) H 06/28/19 10:15 Fibrinogen 713 mg/dL (169-393) H* 06/28/19 10:15 D-Dimer 1475 ng/mLFEU (0-500) H 06/20/19 09:58 Heparin Anti-Xa, Unfract 0.04 IU/mL (0.30-0.70) L 06/24/19 14:04 ABG pH 7.29 pH Units (7.32-7.45) L 06/26/19 05:49 ABG pCO2 48 mmHg (35-45) H 06/27/19 05:22 ABG pO2 72 mmHg (85-104) L 06/27/19 05:22 ABG O2 Saturation 93 % (95-98) L 06/27/19 05:22 ABG Base Excess -5 mEq/L (-2 to 3) L 06/26/19 05:49 Sodium 150 mEq/L (136-145) H 06/27/19 04:45 Potassium 3.4 mEq/L (3.5-5.1) L 06/24/19 14:46 Chloride 111 mEq/L (98-107) H 06/28/19 03:35 Carbon Dioxide 19 mEq/L (23-29) L 06/26/19 04:19 BUN 37 mg/dL (8-23) H 06/28/19 03:35 Creatinine 1.99 mg/dL (0.60-1.20) H 06/28/19 03:35 Est GFR ( Amer) 29 (> 60) L 06/28/19 03:35 Est GFR (Non-Af Amer) 24 (> 60) L 06/28/19 03:35 BUN/Creatinine Ratio 30 (6-26) H 06/24/19 14:46 Glucose 151 mg/dL (70-105) H 06/28/19 03:35 POC Glucose 124 mg/dL (70-99) H 06/27/19 23:32 Calculated Osmolality 306 (280-300) H 06/28/19 03:35 Lactic Acid 3.5 mmol/L (0.5-2.2) H 06/20/19 17:10 Uric Acid 8.8 mg/dL (2.3-7.6) H 06/26/19 17:20 Calcium 8.0 mg/dL (8.6-10.3) L 06/28/19 03:35 Phosphorus 2.5 mg/dL (2.7-4.5) L 06/28/19 03:35 Direct Bilirubin 0.3 mg/dL (0.0-0.2) H 06/28/19 10:15 Creatine Kinase 239 Units/L (30-223) H 06/26/19 17:20 Troponin I 32.90 ng/mL (< 0.04) H* 06/21/19 17:12 Serum Total Protein 5.7 g/dL (6.4-8.9) L 06/28/19 10:15 Albumin 2.9 g/dL (3.5-5.7) L 06/28/19 10:15 Albumin/Globulin Ratio 1.0 (1.1-2.2) L 06/28/19 10:15 Ur Specimen Adequacy See below A 06/28/19 00:27 Urine Clarity Turbid (Clear) A 06/28/19 00:27 Ur Specific [place] 1.029 (1.010-1.025) H 06/28/19 00:27 Urine Protein 100 mg/dL (Neg-Trace) H 06/28/19 00:27 Urine Ketones 15 mg/dL (Negative) H 06/28/19 00:27 Urine Blood Large (Negative) H 06/28/19 00:27 Urine Nitrite Positive (Negative) A 06/28/19 00:27 Urine Bilirubin Moderate (Negative) H 06/28/19 00:27 Ur Leukocyte Esterase Small (Negative) H 06/28/19 00:27 Ur Culture Indicated? YES (NO) A 06/28/19 00:27 Hep Bs Antibody 3.39 mIU/mL (10.00-) L 06/26/19 17:20 - Microbiology Findings Microbiology Findings: Microbiology, Last 48 Hours 06/25/19 11:51 Sputum Culture - Final Aspirate 06/28/19 00:27 Urine Culture - Preliminary Urine,Clean Catch Culture is incubating. - Clinical Findings Intake & Output: Intake & Output 06/27/19 06/28/19 06/28/19 23:59 07:59 15:59 Intake Total 1074.1 / 4067.2 1204.8 / 2438.8 1234 / 2438.8 Output Total 1535 / 1754 844 / 844 Balance -460.9 / 2313.2 360.8 / 1594.8 1234 / 1594.8 Weight 139 kg 141.6 kg - Attending Attestation I saw and evaluated this patient and my medical decision-making was reviewed with the Resident Physician. I agree with the documented findings, disposition and treatment plan as described except to the extent set forth below. We independently had [id number] contact with the patient I spent 33 minutes of Critical Care time with this patient. It involved decision making of high complexity to assess, manipulate, and support vital organ system failure and/or to prevent further life threatening deterioration of the patient's condition. The time involved in the performance of separately reportable procedures was not counted toward critical care time. Patient seen and examined at bedside Labs, radiology, chart personally reviewed. Management was reviewed during multidisciplinary critical care rounds. [employer]: Patient is sedated ventilated and not following commands this is due to toxic/metabolic encephalopathy Pulm: Patient has requiring high FiO2 chest x-ray shows bilateral interstitial pulmonary edema slightly diastolic heart failure will increase the PEEP to 10 cm of water and decrease FiO2. Once V/Q mismatch is stable will come down on the PEEP to 8 the background diuresis hopefully she will be extubated in one or 2 days. 06/26 patient has acceptable oxygenation and ventilation will do low tidal volume strategy with permissive hypercapnia. Patient still requiring high oxygen requirement will decrease PEEP and reduce the FiO2 patient has fluid overload with interstitial pulmonary edema with acute kidney injury with oliguria patient might need ultrafiltration with dialysis due to weekend liberated from mechanical ventilation. 06/27 patient needing increasing oxygen requirements with increased PEEP and FiO2. Counseled the nephrology most likely continuous venovenous hemodiafiltration. 9/12 patient has excellent approximation and ventilation patient needing significant ventilatory support fluid removal was stopped during he modiafiltration because of the severe thrombocytopenia. Cards: Patient needing minimal dose of vasopressor therapy patient had STEMI with stent to the LAD to continue Aggrenox and rectal aspirin once she is taking by mouth we will change to aspirin and Plavix at that point to continue the current regimen and according to cardiology team. 06/27 to monitor closely over the hemodynamics. 06/28 patient is still in shock antiplatelet therapy was changed to Brilinta. FEN-GI: Patient is nothing by mouth because of the small bowel obstruction nutrition according to surgery. To continue TPN. Renal: Labs and output reviewed patient has severe acute kidney injury patient had CVVH yesterday was stopped due to thrombocytopenia ID: To cover with broad-spectrum antibiotics for intra-abdominal surgery. 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 Patient had 2 packs of platelets now she is having bleeding from the endotracheal tube and also bleedi ng from the IV puncture site. Endo: Glucose Monitored Integ/MSK: Skin Care per routine ICU Nursing Protocol to prevent ulcers. Lines: All lines examined without evidence of infection : Dispo: critically ill CODE: DNR CCA Patient family might change the goals of care as patient never wanted prolonged mechanical ventilation .
[2019-06-28] MEDS ORDERED: Pantoprazole 40 MG in 0.9 % Sodium Chloride Mini Bag 100 ML IVC SCH (07:30)
[2019-06-28] MEDS ORDERED: Cefepime HCl 1,000 MG in Water for inj. (sterile) 10 ML IVP SCH (08:00)
[2019-06-28] MEDS: MetroNIDAZOLE 500 MG/100 ML 500 MG/100 ML BAG IVPB SCH (08:21)
[2019-06-28] MEDS: Chlorhexidine Rinse 15 ML MOUTHWASH MM SCH ×2 (08:33→08:52)
[2019-06-28] MEDS ORDERED: IVIG (wt based) 5 GM/50 ML INFUS..BTL IVC ONE ×2 (09:01→09:21)
--- NOTE | 2019-06-28 09:15 | Palliative - Consult Note ---
Date of Encounter: 06/28/19 Time of Encounter: 11:30 - Assessment and Plan (1) Palliative care by specialist Status: Acute Assessment and plan: Pt currently does not have capacity to make complex medical decisions. Pt's daughter Kalpana Holden is documented HPOA. Paperwork on file in chart. (2) Goals of care, counseling/discussion Status: Acute Assessment and plan: Pt's condition acutely worsened overnight. Multiple family members at bedside today. Pt's daughter Kalpana (HPOA) and entire family have made decision to liberate her from the ventilator and focus on full comfort care. (3) End of life care Status: Acute Assessment and plan: End of Life Care: - CRRT and Levophed drip has been discontinued per ICU team. - Discontinue Versed drip in preparation for removal of vent. Pt currently over breathing ventilator. - DNRCC order placed per family wishes. Extubation order placed per primary ICU team. Generalized Pain: Decrease current Fentanyl gtt to 100mcg/hr. Recommend 150mcg bolus of IV Fentanyl 15 minutes prior to extubation + 100mcg Fentanyl IV push Q15min PRN for pain/dyspnea. Dyspnea: Opioids as above will assist with sensation of shortness of breath. Anxiety: Recommend IV Ativan 2mg once 15 minutes prior to extubation + IV Ativan 1mg Q2hr PRN for anxiety. If dose ineffective, low threshold to increase to 2mg. Secretions: Recommend dose of IV Robinul 0.4mg 15 minutes prior to extubation. May also use Atropine 4 drops SL Q4hr PRN for secretions. Continue to support and educate family on the natural dying process and management of secretions at end of life. End of Life comfort care plan discussed with ICU team and Daniel Hurtado, DiptiD. Palliative-CN HPI - Data of Consult Patient: new to practice Consult date: 06/28/19 Requesting Physician: Robina Thomas Primary Care Provider: Juan Randall - Consult Narrative Palliative Care/Comfort Measures: Palliative care Reason for consult: Goals of Care History of present illness: Ms. Marrero is a 83 year old female with past medical hx of HTN, chronic renal replacement therapy who p/w complaints of N/V on 06/20/19, she was found to have STEMI and stent was placed to the LAD. She was also found to have a SBO for which she underwent surgery on 06/24 requiring intubation and transfer to ICU. Hospital course complicated by concern for ARDS vs. CHF vs pneumonia. Pt was started on CVVHD yesterday. Today, pt had critical drop in her platelets (platelet <2). Nephrology, Hematology/Oncology and Cardiology now weighing in. Patient's CVVHD and Aggrastat drip have now been discontinued. Palliative Care was consulted today to assist with goals of care. Pt lying in bed, critically ill-appearing, intubated and sedated, pt is non- responsive on exam. Blood noted in ET tube, pt suctioned per bedside RN. Plan for family meeting today at 1300. Primary team has called family in now given pt's worsening clinical condition. Multiple family members present at bedside, pt's daughter Kalpana Holden (documented HPOA) along with the entire family has requested to remove her from the ventilator and focus on full comfort care. Pt transitioned to DNRCC status, comfort measures in place, pt to be extubated 15 minutes after comfort medications given. Educated family on the natural dying process and what to expect. Bedside staff and family deny any further needs at this time. Palliative Care following closely. CC: Robina Thomas - Time Spent with Patient Time: Total time spent is greater than 50% in coordination of care (as documented) at patient's floor/unit and/or counseling patient: 60 minutes Past Med Surg Social Fam HX - Past Medical History Medical history: cancer, CVA, hypertension, renal disease, TIA, other Additional medical history: breast cancer Psychiatric history: no psych history - Past Surgical History Surgical History: herniorrhaphy, other Additional surgical history: kidney stone removed L kidney, hernia repair, tubal ligation left lumpectomy, d&c, carpal tunnel, lithotripsy, bilateral breast bx, parthyroidectomy, tyroid nodule and parathyroid, left breast cancer. - Social History Smoking Status: Former smoker Smokeless Tobacco Status: No Alcohol use: none Drug use: none - Family History Father Hx Family Cardiac Disorders: Yes Medications and Allergies Aspirin 81 mg PO QPM 08/04/15 [History] Losartan/Hydrochlorothiazide [Hyzaar 100-12.5 Tablet] 1 each PO QPM 08/04/15 [History] Loratadine [Claritin] 10 mg PO DAILY 08/23/18 [History] Tolterodine Tartrate [Detrol] 2 mg PO BID 09/25/18 [History] Cholecalciferol (D-3) [Vitamin D] 2,000 units PO QAM 06/20/19 [History] Metoprolol Succinate [Toprol Xl] 25 mg PO QAM 06/20/19 [History] Multivit-Min/Iron/Folic/Lutein [Centrum Silver Women Tablet] 1 tab PO QPM 06/20/19 [History] Omeprazole 20 mg PO QAM 06/20/19 [History] PARoxetine HCl [Paroxetine HCl] 20 mg PO QAM 06/20/19 [History] Allergy/AdvReac Type Severity Reaction Status Date / Time Iodinated Contrast Media AdvReac Hives Verified 06/20/19 21:06 Penicillins [PCN] AdvReac Hives Verified 06/20/19 21:06 Qdqbiyk-Mrn-Kbk Reductase AdvReac Muscle Pain Verified 06/20/19 21:06 Inhibitor [Statins] ROS unobtainable: due to endotracheal tube, due to mental status Palliative Care-Exam - Constitutional Vitals: Temp Pulse Resp BP Pulse Ox 99.8 F H 92 20 108/57 97 06/28/19 08:45 06/28/19 08:45 06/28/19 08:45 06/28/19 08:45 06/28/19 08:45 Exam: CONSTITUTIONAL/GENERAL: Intubated, sedated, non-responsive, lying in bed. EYES: Pupils symmetric; pinpoint-reactive. Ear/Nose/Mouth/Throat (EMNT): ET tube present, NG tube present to suction. CARDIOVASCULAR: Tachycardia noted; generalized edema, 2+ pitting edema to BLE. RESPIRATORY: Currently on ventilator. TV 400, RR18, Peep 10, 70% FiO2 GASTROINTESTINAL: Surgical dressing noted to abdomen, absent bowel sounds. GENITOURINARY: Celestin catheter present. NEUROLOGIC: Pt sedated, non-responsive. PSYCHIATRY: Unable to assess d/t mental status. Internal Medicine - CN: Reslt - Labs CBC & Chem 7: 06/28/19 10:15 06/28/19 03:35 Labs: Short CBC 06/28/19 06/28/19 Range/Units 04:28 05:25 WBC 21.0 H (4.3-11.1) K/mcL Hgb 9.4 L 9.5 L (11.5-15.4) g/dL Hct 29.6 L 29.4 L (35.3-44.9) % Plt Count < 2 L* D (140-400) K/mcL Neutrophils # 17.2 H (1.6-8.9) K/mcL BMP 06/28/19 03:35 Sodium 142 Potassium 3.7 Chloride 111 H Carbon Dioxide 23 BUN 37 H Creatinine 1.99 H Glucose 151 H Calcium 8.0 L Urine 06/28/19 Range/Units 00:27 Urine Color Brown (Yellow) Urine Clarity Turbid A (Clear) Urine pH 5.5 (5.0-8.0) pH Units Ur Specific [place] 1.029 H (1.010-1.025) Urine Protein 100 H (Neg-Trace) mg/dL Urine Glucose (UA) Normal (Normal) mg/dL - ABG Interpretation ABG results: ABG ABG pH 7.32 pH Units (7.32-7.45) 06/27/19 05:22 ABG pCO2 48 mmHg (35-45) H 06/27/19 05:22 ABG pO2 72 mmHg (85-104) L 06/27/19 05:22 ABG O2 Saturation 93 % (95-98) L 06/27/19 05:22 PT/INR, D-dimer PT 13.8 Seconds (9.4-12.1) H 06/24/19 14:04 D-Dimer 1475 ng/mLFEU (0-500) H 06/20/19 09:58 - Impressions Impressions Guidance Ultrasound 06/27/19 00:00 IMPRESSION: Ultrasound-guided non tunneled dialysis catheter placement performed. D/ / Marlon Caicedo MD / Marlon Caicedo MD Interpreting Provider: Marlon Caicedo MD Insertion Non-Tunneled Catheter 06/27/19 00:00 IMPRESSION: Ultrasound-guided non tunneled dialysis catheter placement performed. D/ / Marlon Caicedo MD / Marlon Caicedo MD Interpreting Provider: Marlon Caicedo MD Chest X-Ray 06/27/19 13:53 IMPRESSION: 1. Interval placement of right IJ hemodialysis catheter with the tip in the lower SVC. No pneumothorax. 2. Remaining support lines and tubes are unchanged. 3. Left more than right lung opacities may represent multifocal pneumonia or asymmetric pulmonary edema. Continued follow-up recommended. D/ / Magali Carrion MD / Magali Carrion MD Interpreting Provider: Magali Carrion MD Chest X-Ray 06/27/19 18:28 IMPRESSION: 1. Life support appliances appear appropriately positioned. 2. Increasing opacity mid and lower left lung with obscuration left hemidiaphragm in keeping with pleural effusion and consolidation. Pneumonia, atypical pulmonary edema pattern or pulmonary hemorrhage are considerations. There are additional findings of congestive heart failure as well. 3. Cardiomegaly. 4. No pneumothorax. D/ / Justin Gillespie / Justin Gillespie Interpreting Provider: Justin Gillespie Chest/Abdomen X-ray 06/28/19 05:56 IMPRESSION: Markedly improved small bowel distention when compared to the previous examination on 06/24/2019. Central vascular congestion with consolidative changes seen in the left perihilar region and left lung base with a small left pleural effusion. D/ / Corey Trinidad MD / Corey Trinidad MD Interpreting Provider: Corey Trinidad MD Consult Discharge Plan - Plan Referrals: Juan Randall DO [Primary Care Provider] - Palliative Quality Palliative Quality: Screen for Code Status: Yes (Pt transitioned to full comfort care per family wishes. ), Screen for Goals of Care: Yes, Screen for Pain: Yes, If Pain Regimen Started, Initiate Bowel Regimen: NA, Screen for Nausea/Vomitting: Yes Code Status: 06/20/19 15:34 Resuscitation Status: Active [RES] Routine Comment: Resuscitation Status: [id number] 06/25/19 23:17 Resuscitation Status: Active [RES] Routine Comment: Resuscitation Status: DNR-Comfort Care-Arrest Palliative Scale - Palliative Performance Scale How ambulatory is this patient?: Totally bed bound What is patient's level of activity and evidence of disease?: Unable to do any activity, Extensive disease How much self-care assistance does patient require?: Full How much oral intake does the patient have?: Mouth care only What is this patient's level of consciousness?: Drowsy or coma with or without confusion Palliative Performance Score: 10 %
[2019-06-28] MEDS ORDERED: IMMUNE GLOBULIN IVC ONE (09:30)
[2019-06-28] MEDS ORDERED: Immune Globulin, Gamma (IGG) 5 GM/50 ML INFUS..BTL IVC ONE (09:30)
[2019-06-28] MEDS ORDERED: Furosemide 20 MG/2 ML VIAL IVP ONE ×2 (09:43→09:44)
--- NOTE | 2019-06-28 09:44 | AcuteCareSurgery Progress Note ---
Date of Encounter: 06/28/19 Time of Encounter: 09:00 - Assessment and Plan (1) Small bowel obstruction Current Visit: Yes Status: Acute Partial small bowel obstruction appears to have clinically resolved. Discontinue nasogastric tube. Start volume restricted clear liquids. Start aspirin and Plavix. 06/23/2019. The patient is seen and evaluated on morning rounds with the acute care surgery team. The nasogastric tube was removed yesterday. She is not reported any flatus or bowel movement, however, she does have nausea and is being treated every 6 hours. She is also developed shortness of breath. I am concerned that this is cardiac in origin based on her recent elevated troponin levels. Certainly with previous findings on KUB a partial small bowel obstructions to be ruled out. We will plan nothing by mouth and Gastrografin small bowel follow-through 06/28/2019. Please see intervening progress notes. The patient is referred for palliative consultation today after developing multisystem organ failure. Surgery will sign off. Please contact us if there are any other questions. Subjective Narrative: The patient is seen and evaluated on morning rounds with the acute care surgery team. She has developed multisystem organ failure. Palliative consultation is completely appropriate and it is the opinion of acute care surgery that her surviaval is in doubt even with the most aggressive care. Acute care surgery will sign off. Please contact acute care surgery for any future questions. Objective Vital Signs - Last 8 Hours Temp Pulse Resp BP Pulse Ox 06/28/19 09:35 131 25 122/85 91 06/28/19 08:45 99.8 F H 92 20 108/57 97 06/28/19 08:30 99.6 F 92 19 110/59 97 06/28/19 08:20 99.4 F 94 20 119/55 98 06/28/19 08:00 94 18 113/60 99 06/28/19 07:40 96 06/28/19 07:31 19 102/59 99 06/28/19 07:18 99.4 F 06/28/19 07:15 94 20 96/57 97 06/28/19 06:54 98.5 F 94 18 97/60 95 06/28/19 06:39 99.0 F 87 18 94/55 98 06/28/19 06:27 19 96 06/28/19 06:00 89 18 101/56 89 06/28/19 05:00 87 20 107/57 94 06/28/19 04:54 19 92 06/28/19 04:00 99.6 F 93 21 101/59 91 06/28/19 03:00 92 21 100/57 94 06/28/19 02:00 92 18 100/54 86 Intake and Output 06/27/19 06/28/19 06/28/19 23:59 07:59 15:59 Intake Total 1074.1 / 4067.2 1204.8 / 1518.8 314 / 1518.8 Output Total 1535 / 1754 844 / 844 Balance -460.9 / 2313.2 360.8 / 674.8 314 / 674.8 Intake: IV Fluids 1074.1 / 4067.2 1204.8 / 1214.8 10 / 1214.8 PrismaSATE BGK 4/2.5 5,000 ML @ 0 / 0 1250 mls/hr CRRT CONT [facility] Rx#: [id number] FentaNYL (PF) 1,000 MCG In 0.9 100 / 500 200 / 200 % Sodium Chloride 80 ML @ 25 MCG/HR 2.5 mls/hr IVC CONT [facility] Rx#:[id number] Clinimix E 5%-15% SOLUTION 2, 480 / 748.2 268.2 / 268.2 000 ML @ 50 mls/hr IVC .Q24H [facility] with M.v.i. Adult 10 ml Rx# :[id number] Versed 50 MG In 0.9 % Sodium 100 / 400 200 / 200 Chloride 90 ML @ 2 MG/HR 4 mls/ hr IVC CONT [facility] Rx#:[id number] Levophed 4 MG In 0.9 % Sodium 34.1 / 275.5 65.8 / 65.8 Chloride 250 ML @ 5 MCG/MIN 19. 05 mls/hr IVC CONT [facility] Rx#: [id number] Aggrastat 12.5 MG/250 ML 12.5 120.8 / 120.8 mg In 250 ml @ 0.075 MCG/KG/MIN 11.394 mls/hr IVC .[id number] [facility] Rx#:[id number] Maxipime 1,000 MG In Water for 10 / 10 inj. (sterile) 10 ML @ 300 mls/ hr IVP Q12H [facility] Rx#:[id number] Intralipid 20% 250 ML @ 21 mls/ 250.0 / 250.0 hr IVPB DAILY@1700 [facility] Rx#: [id number] Flagyl Premix 500 MG/100 ML 500 100 / 300 100 / 100 mg In 100 ml @ 100 mls/hr IVPB Q8HR [facility] Rx#:[id number] Potassium Phosphate 44 MEQ In 0 260 / 260 .9 % Sodium Chloride 250 ML @ 40 mls/hr IVPB ONCE ONE Rx#: [id number] Oral 0 / 0 Blood Product 0 / 304 304 / 304 Platelet Pheresis Lp Unit 0 / 0 [id number] Platelet Pheresis Lp Irr 2nd 0 / 304 304 / 304 Unit [id number] Output: Urine 0 / 0 Catheter 0 / 0 455 / 455 Gastric Drainage 0 / 100 50 / 50 Fluid Removed by Prismaflex 1535 / 1654 339 / 339 Other: Weight 139 kg 141.6 kg Blood Glucose* 120 153 Patient Weight 06/28/19 23:59 Weight 141.6 kg - General physical appearance other (The patient is still on ventilatory support with persistent hypoxia. The patient is in renal failure.) - Respiratory other (Breath sounds are clear on maximum ventilatory support) - Cardiovascular Cardiovascular exam: Present: RRR, tachycardia (Hypotensive on pressors) - Abdomen Abdomen: Present: bowel sounds present (Few bowel sounds.) - Incision Incision: Present: clean and dry - Neurologic other (Unresponsive sedated) - Labs 06/28/19 05:25 06/28/19 03:35 Diabetes panel 06/28/19 Range/Units 03:35 Sodium 142 (136-145) mEq/L Potassium 3.7 (3.5-5.1) mEq/L Chloride 111 H (98-107) mEq/L Carbon Dioxide 23 (23-29) mEq/L BUN 37 H (8-23) mg/dL Creatinine 1.99 H (0.60-1.20) mg/dL Glucose 151 H (70-105) mg/dL Calcium 8.0 L (8.6-10.3) mg/dL Triglycerides 106 (< 150) mg/dL Calcium panel 06/28/19 Range/Units 03:35 Calcium 8.0 L (8.6-10.3) mg/dL Phosphorus 2.5 L (2.7-4.5) mg/dL Pituitary panel 06/28/19 Range/Units 03:35 Sodium 142 (136-145) mEq/L Potassium 3.7 (3.5-5.1) mEq/L Chloride 111 H (98-107) mEq/L Carbon Dioxide 23 (23-29) mEq/L BUN 37 H (8-23) mg/dL Creatinine 1.99 H (0.60-1.20) mg/dL Glucose 151 H (70-105) mg/dL Calcium 8.0 L (8.6-10.3) mg/dL Adrenal panel 06/28/19 Range/Units 03:35 Sodium 142 (136-145) mEq/L Potassium 3.7 (3.5-5.1) mEq/L Chloride 111 H (98-107) mEq/L Carbon Dioxide 23 (23-29) mEq/L BUN 37 H (8-23) mg/dL Creatinine 1.99 H (0.60-1.20) mg/dL Glucose 151 H (70-105) mg/dL Calcium 8.0 L (8.6-10.3) mg/dL Consult Discharge Plan - Plan Referrals: Juan Randall DO [Primary Care Provider] -
[2019-06-28] MEDS: *HR* Metoprolol 5 MG/5 ML VIAL IVP PRN (09:52)
--- NOTE | 2019-06-28 10:04 | Oncology Inp Consult Note ---
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 Differentials for such severe acute Darrin therapy via includes ITP-commonly d rug-induced immune thrombocytopenia, TTP, rapid onset HIT or artifactual platelet clumping. I have personally reviewed the peripheral peripheral smear of this patient along with the pathologist. Peripheral smear revealed mild macrocytosis, very few platelets noted, no platelet clumping, no schistocytes. There is a leukocytosis with left shift. No abnormal cells noted. 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 Recommendations: 1. Hold off on all antiplatelet drugs until platelets recovers at least more than 50,000. White she has a very high risk of in-stent thrombosis with a drug- eluting stent in place the clinical risk of bleeding at this time is significant. 2. Do not administered any heparin or heparin-related products. 3. Recommend IVIG at 1 gram/kg body weight today and if she responds and and all aggressive care is continued, would recommend another dose tomorrow. 4. Recommend checking CBC every 6 hours, PT INR, PTT, HIT testing and platelet antibody testing. 5. We will follow patient along with you every day. This do not hesitate to contact us at any time with any questions. Thank you for kindly involving us in the care of this patient. - Data of Consult Requesting Physician: Robina Thomas Primary Care Provider: Juan Randall - Consult Narrative Reason for consult: acute severe thrombocytopenia History of present illness: Mrs. Marrero is an 83-year-old female patient via seeing in consultation today for acute onset severe thrombocytopenia. 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 We are consulted today because her platelet count dropped very acutely from 156,000 yesterday to less than 2000 today. She was started on antiplatelet aspirin and Plavix post PCI and switched to IV tirofiban after intubation and has been on it for more than 48 hours. She is currently sedated and unable to talk to me. There is evidence of oozing of blood noted in her NG tube, ET tube, oozing from her central line site in the right neck and blood-tinged urine noted in her Celestin catheter. Past Med Surg Social Fam HX - Past Medical History Medical history: cancer, CVA, hypertension, renal disease, TIA, other Additional medical history: breast cancer Psychiatric history: no psych history - Past Surgical History Surgical History: herniorrhaphy, other Additional surgical history: kidney stone removed L kidney, hernia repair, tubal ligation left lumpectomy, d&c, carpal tunnel, lithotripsy, bilateral breast bx, parthyroidectomy, tyroid nodule and parathyroid, left breast cancer. - Social History Smoking Status: Former smoker Smokeless Tobacco Status: No Alcohol use: none Drug use: none - Family History Father Hx Family Cardiac Disorders: Yes Medications and Allergies Aspirin 81 mg PO QPM 08/04/15 [History] Losartan/Hydrochlorothiazide [Hyzaar 100-12.5 Tablet] 1 each PO QPM 08/04/15 [History] Loratadine [Claritin] 10 mg PO DAILY 08/23/18 [History] Tolterodine Tartrate [Detrol] 2 mg PO BID 09/25/18 [History] Cholecalciferol (D-3) [Vitamin D] 2,000 units PO QAM 06/20/19 [History] Metoprolol Succinate [Toprol Xl] 25 mg PO QAM 06/20/19 [History] Multivit-Min/Iron/Folic/Lutein [Centrum Silver Women Tablet] 1 tab PO QPM 06/20 [History] Omeprazole 20 mg PO QAM 06/20/19 [History] PARoxetine HCl [Paroxetine HCl] 20 mg PO QAM 06/20/19 [History] Allergy/AdvReac Type Severity Reaction Status Date / Time Iodinated Contrast Media AdvReac Hives Verified 06/20/19 21:06 Penicillins [PCN] AdvReac Hives Verified 06/20/19 21:06 Xgtugth-Iif-Dag Reductase AdvReac Muscle Pain Verified 06/20/19 21:06 Inhibitor [Statins] ROS unobtainable: due to endotracheal tube, due to mental status Oncology - Exam - Constitutional Provider Comments:: Currently sedated General appearance: morbidly obese - ENT Additional comments: ET tube in place blood-tinged ET discharge noted - Neck Additional comments: Right-sided CVC noted, oozing of blood around CVC seen - Respiratory Additional comments: On mechanical ventilator, breath sounds heard bilaterally, coarse crepitations heard - Cardiovascular Cardiovascular exam: Present: +S1, +S2 - GI/Abdominal Additional comments: Soft bowel sounds sluggish, postop - Additional comments: Celestin in place with blood tinged urine - Neurological Exam Additional comments: sedated and ventilated, could not perform a complete a neurological assessment. - Skin Skin exam: Present: petechiae Oncology Inpatient Results Labs: Short CBC 06/28/19 06/28/19 Range/Units 05:25 04:28 WBC 21.0 H (4.3-11.1) K/mcL Hgb 9.5 L 9.4 L (11.5-15.4) g/dL Hct 29.4 L 29.6 L (35.3-44.9) % Plt Count < 2 L* D (140-400) K/mcL Neutrophils # 17.2 H (1.6-8.9) K/mcL BMP 06/28/19 Range/Units 03:35 Sodium 142 (136-145) mEq/L Potassium 3.7 (3.5-5.1) mEq/L Chloride 111 H (98-107) mEq/L Carbon Dioxide 23 (23-29) mEq/L BUN 37 H (8-23) mg/dL Creatinine 1.99 H (0.60-1.20) mg/dL Glucose 151 H (70-105) mg/dL Calcium 8.0 L (8.6-10.3) mg/dL Urine 06/28/19 Range/Units 00:27 Urine Color Brown (Yellow) Urine Clarity Turbid A (Clear) Urine pH 5.5 (5.0-8.0) pH Units Ur Specific [place] 1.029 H (1.010-1.025) Urine Protein 100 H (Neg-Trace) mg/dL Urine Glucose (UA) Normal (Normal) mg/dL Chest CTA 06/20/19 12:18 IMPRESSION: 1. No CTA evidence for acute pulmonary embolus. Otherwise, stable CT scan chest. D/ / Mirza Roman MD / Mirza Roman MD Interpreting Provider: Mirza Roman MD Abdomen/Pelvis CT 06/20/19 15:30 IMPRESSION: 1. Stable findings consistent with a mid to distal small bowel obstruction. Mildly distended fluid filled small bowel loops with transition distally. Mild infiltration of the mesenteric fat. No free air or significant interloop fluid collections. Trace pelvic ascites. 2. Otherwise stable CT of the abdomen and pelvis. D/ / 06/20/2019 16:13:20 Corey Khanna MD / Татьяна Clayton Interpreting Provider: Corey Khanna MD Echocardiogram 06/21/19 12:02 Impressions: LVEF 40-45%. Normal LV chamber size. Basal sigmoid septum. Segmental left ventricular systolic dysfunction. Mild left ventricular diastolic dysfunction. There is no LV thrombus. Normal right ventricular structure and function. Moderately calcified aortic valve leaflets. Mild aortic stenosis by Doppler. Mean gradient 9 mmHg. Mild tricuspid regurgitation. Moderate pulmonary hypertension. Estimated RVSP is 54 mmHg. Consult Discharge Plan - Plan Referrals: Juan Randall DO [Primary Care Provider] - Inpatient Charges Provider: Dr. Goldie Caraballo Follow up - Inpatient: [id number]
[2019-06-28] MEDS ORDERED: Ipratropium/Albuterol Neb 3 ML IH STA (10:07)
[2019-06-28] MEDS ORDERED: Albuterol 2.5 MG/3 ML NEBULIZER IH PRN (10:08)
--- NOTE | 2019-06-28 10:14 | Nephrology Progress Note ---
Date of Encounter: 06/28/19 Time of Encounter: 08:05 - Assessment and Plan (1) Thrombocytopenia Status: Acute Thrombocytopenia is likely multifactorial from sepsis, the antiplatelet IV drug medication, and possibly DIC. The patient was not on citrate and did not receive a heparin drip on Dixie. Nevertheless I will stop Dixie because the patient's platelets are so incredibly low at less than 2. (2) S/P drug eluting coronary stent placement Status: Acute (3) Acidosis Status: Acute (4) Acute kidney injury Status: Acute Dixie was started yesterday and was held this AM d/t severely low Plts (see above). Discussed in detail with the primary team. This highly complex pt required a high degree of E/M and MDM; and she has a poor prognosis. (5) Hypernatremia Status: Acute (6) Small bowel obstruction Status: Acute Subjective Principal diagnosis: NSTEMI Interval history: The patient was seen and examined. Since yesterday, the patient tolerated Dixie well without overt / worsening of her hemodynamics. The dialysis filter has not yet been replaced. Early this morning, I was paged by the [employer] and the patient appears to be falling into DIC with quite severe thrombocytopenia. No family members were present during my interview and exam. Discussed with the ICU team in detail. The IV antiplatelet drug Aggrastat was stopped by cardiology. Objective - Vital Signs Vital signs: Vital Signs Temp Pulse Resp BP Pulse Ox 06/28/19 09:57 25 113/93 90 06/28/19 09:35 99.1 F 105 20 122/85 97 06/28/19 08:45 99.8 F H 92 20 108/57 97 06/28/19 08:30 99.6 F 92 19 110/59 97 06/28/19 08:20 99.4 F 94 20 119/55 98 06/28/19 08:00 94 18 113/60 99 06/28/19 07:40 96 06/28/19 07:31 19 102/59 99 06/28/19 07:18 99.4 F 06/28/19 07:15 94 20 96/57 97 06/28/19 06:54 98.5 F 94 18 97/60 95 06/28/19 06:39 99.0 F 87 18 94/55 98 06/28/19 06:27 19 96 06/28/19 06:00 89 18 101/56 89 06/28/19 05:00 87 20 107/57 94 06/28/19 04:54 19 92 06/28/19 04:00 99.6 F 93 21 101/59 91 06/28/19 03:00 92 21 100/57 94 06/28/19 02:00 92 18 100/54 86 06/28/19 01:00 89 20 92/51 100 06/28/19 00:50 21 100 06/28/19 00:00 97.3 F L 108 19 66/47 92 06/27/19 23:36 93 06/27/19 23:00 99 24 104/61 96 06/27/19 22:52 19 96 06/27/19 22:00 99.6 F 106 20 105/72 96 06/27/19 21:00 97 23 95/80 95 06/27/19 20:14 25 93 06/27/19 20:00 100.9 F H 120 20 116/64 94 06/27/19 19:00 120 24 99/58 92 06/27/19 18:00 120 24 109/93 93 06/27/19 17:23 24 93 06/27/19 17:00 103 22 113/99 96 06/27/19 16:00 99.4 F 123 22 83/63 93 06/27/19 15:34 24 86/78 93 06/27/19 15:00 97 24 116/64 96 06/27/19 14:00 84 19 113/61 92 06/27/19 13:00 86 18 109/57 93 06/27/19 12:00 99.7 F H 76 18 103/57 93 06/27/19 11:03 18 90 06/27/19 11:00 76 18 105/53 92 Intake and Output 06/27/19 06/28/19 06/28/19 23:59 07:59 15:59 Intake Total 1074.1 / 4067.2 1204.8 / 1735.8 531 / 1735.8 Output Total 1535 / 1754 844 / 844 Balance -460.9 / 2313.2 360.8 / 891.8 531 / 891.8 Intake: IV Fluids 1074.1 / 4067.2 1204.8 / 1214.8 10 / 1214.8 PrismaSATE BGK 4/2.5 5,000 ML @ 0 / 0 1250 mls/hr CRRT CONT [facility] Rx#: [id number] FentaNYL (PF) 1,000 MCG In 0.9 100 / 500 200 / 200 % Sodium Chloride 80 ML @ 25 MCG/HR 2.5 mls/hr IVC CONT [facility] Rx#:[id number] Clinimix E 5%-15% SOLUTION 2, 480 / 748.2 268.2 / 268.2 000 ML @ 50 mls/hr IVC .Q24H FROY with M.v.i. Adult 10 ml Rx# :[id number] Versed 50 MG In 0.9 % Sodium 100 / 400 200 / 200 Chloride 90 ML @ 2 MG/HR 4 mls/ hr IVC CONT [facility] Rx#:[id number] Levophed 4 MG In 0.9 % Sodium 34.1 / 275.5 65.8 / 65.8 Chloride 250 ML @ 5 MCG/MIN 19. 05 mls/hr IVC CONT [facility] Rx#: [id number] Aggrastat 12.5 MG/250 ML 12.5 120.8 / 120.8 mg In 250 ml @ 0.075 MCG/KG/MIN 11.394 mls/hr IVC .[id number] [facility] Rx#:[id number] Maxipime 1,000 MG In Water for inj. (sterile) 10 ML @ 300 mls/ hr IVP Q12H [facility] Rx#:[id number] Intralipid 20% 250 ML @ 21 mls/ 250.0 / 250.0 hr IVPB DAILY@1700 [facility] Rx#: [id number] Flagyl Premix 500 MG/100 ML 500 100 / 300 100 / 100 mg In 100 ml @ 100 mls/hr IVPB Q8HR [facility] Rx#:[id number] Potassium Phosphate 44 MEQ In 0 260 / 260 .9 % Sodium Chloride 250 ML @ 40 mls/hr IVPB ONCE ONE Rx#: [id number] Oral 0 / 0 Blood Product 0 / 521 521 / 521 Platelet Pheresis Lp Unit 217 / 217 [id number] Platelet Pheresis Lp Irr 2nd 0 / 304 304 / 304 Unit [id number] Output: Urine 0 / 0 Catheter 0 / 0 455 / 455 Gastric Drainage 0 / 100 50 / 50 Fluid Removed by Prismaflex 1535 / 1654 339 / 339 Other: Weight 139 kg 141.6 kg Blood Glucose* 120 153 Patient Weight 06/28/19 23:59 Weight 141.6 kg - General Appearance General appearance: Present: well-developed, obese, moderate distress, chron ically ill, fatigue, frail EENT: Present: ATNC, mucous membranes moist Additional Comments: Right IJ temporary HD catheter was ozzing. She also has a Rt IJ CVC. Neck: Present: no JVD, supple Respiratory: Present: course breath sounds Cardiology: Present: edema, normal S1, normal S2 Dialysis Vascular Access: Venous Catheter (Right IJ temporary HD catheter) Gastrointestinal: Present: normoactive bowel sounds, no tenderness, no guarding Integumentary: Present: ecchymotic (with petechia noted on the LEs bilaterally) Neurologic: Present: obtunded (intubated/sedated) Musculoskeletal: Present: no cyanosis - Lab 06/28/19 10:15 06/28/19 03:35 Most recent lab results 06/28/19 06/28/19 00:27 03:35 Calcium 8.0 L Phosphorus 2.5 L Magnesium 2.0 Urine Sodium 32.5 Consult Discharge Plan - Plan Referrals: Juan Randall DO [Primary Care Provider] -
[2019-06-28] MEDS ORDERED: Immune Globulin, Gamma (IGG) 20 GM/200 ML INFUS..BTL IVC ONE ×6 (10:15→10:30)
[2019-06-28 10:37] LABS: Mean Corpuscular Volume 103.2 fL (83.0-100.0)
[2019-06-28 10:39] LABS: Hematocrit 28.7 % (35.3-44.9); Mean Corpuscular HGB Conc 31.4 g/dL (31.6-35.5); Mean Corpuscular Hemoglobin 32.4 pg (28.0-33.3); Monocytes # 0.1 K/mcL (0.0-1.3); Nucleated Red Blood Cells 1.1 /100 WBC (0); Red Blood Count 2.78 M/mcL (3.82-4.97); White Blood Count 6.6 K/mcL (4.3-11.1)
[2019-06-28 10:56] LABS: Albumin 2.9 g/dL (3.5-5.7); Bilirubin,Direct 0.3 mg/dL (0.0-0.2); Bilirubin,Indirect 0.3 mg/dL (0.0-1.2); Bilirubin,Total 0.6 mg/dL (0.3-1.0); Globulin 2.8 g/dL (2.4-3.5); Total Protein 5.7 g/dL (6.4-8.9)
[2019-06-28] MEDS ORDERED: Tranexamic Acid 1,000 MG/10 ML VIAL IR ONE (11:00)
[2019-06-28 11:02] LABS: INR 1.3; Prothrombin Time 14.2 Seconds (9.4-12.1)
[2019-06-28 11:04] LABS: Activated Partial Thrombo Time 30.3 Seconds (26.0-36.0)
[2019-06-28 11:09] VITALS: BP 84/54
[2019-06-28 11:09] LABS: Platelet Count < 2 K/mcL (140-400)
[2019-06-28] MEDS ORDERED: *HR* LORazepam 2 MG/ML VIAL IVP PRN (11:12)
[2019-06-28] MEDS ORDERED: *HR* FentaNYL (PF) 100 MCG/2 ML VIAL IVP ONE (11:28)
[2019-06-28] MEDS ORDERED: *HR* FentaNYL (PF) 100 MCG/2 ML VIAL IVP PRN (11:29)
[2019-06-28 11:57] LABS: Eosinophils # 0.1 K/mcL (0.0-0.6); Lymphocytes # 0.3 K/mcL (0.6-4.6); Neutrophils # 5.2 K/mcL (1.6-8.9)
[2019-06-28 11:58] LABS: Platelet Estimate Marked Decrease (Normal)
[2019-06-28 11:59] LABS: Toxic Granulation Present (Not Present)
[2019-06-28] MEDS ORDERED: Atropine Sulfate 1% 40 DROP/2 ML BOTTLE SL PRN (12:04)
--- NOTE | 2019-06-28 13:06 | Death Note ---
Pronouncement Note - Date and Time of Date of : 06/28/19 Time of : 12:53 - PCOD Preliminary cause of : Cardiac arrest - Summary Additional details: Patient was palliatively extubated as per her wishes after CODE STATUS ordered as DNR-CC as stated by her daughter who is the patient's POA with additional family at bedside. Patient time of was 12:53 PM. was confirmed by 2 RNs at bedside noting asystole on the monitor and confirming patient was pulseless and apneic with fixed and dilated pupils. No cardiac or pulmonary sounds were heard to auscultation. Resident physician Dr. Rell Ward was notified and time of was confirmed at 12:53. Attending physician Dr. Molina Riggs was notified after time of was pronounced. - Additional Data Confirmation of : no pulse, no respirations, no heart sounds, pupils fixed and dilated Family: at bedside Attending/PCP notified?: Yes Attending physician: Robina Riggs Was code activated?: No Autopsy requested?: No cop examiner notified?: No Organ bank notified?: No Advance directives: No
--- NOTE | 2019-06-28 13:12 | Death Note ---
Discharge Sum: Summary - Date and Time Date of admission: 06/20/19 17:00 Date of : 06/28/19 Time of : 12:53 - Summary Details: Patient was palliatively extubated as per her wishes after CODE STATUS ordered as DNR-CC as stated by her daughter who is the patient's POA with additional family at bedside. Patient time of was 12:53 PM. was confirmed by 2 RNs at bedside noting asystole on the monitor and confirming patient was pulseless and apneic with fixed and dilated pupils. No cardiac or pulmonary sounds were heard to auscultation. Resident physician Dr. Rell Ward was notified and time of was confirmed at 12:53. Attending physician Dr. oMlina Riggs was notified after time of was pronounced. - Additional Data Confirmation of as documented by pronouncing clinician: no pulse, no respirations, no heart sounds, pupils fixed and dilated Family: at bedside Attending/PCP notified?: Yes Attending physician: Robina Thomas Was code activated?: No Autopsy requested?: No garment examiner notified?: No Organ bank notified?: No Advance directives: No Hospice patient?: No Discharge Sum: Diag - PCOD Probable Cause of : Cardiac arrest Discharge Sum: Prov - Provider Primary care physician: Juan Randall Admitting clinician: Robina Thomas Attending physician on admission: Dani Adams Consults: 06/20/19 13:48 Consult to Surgery [CONS] Stat Consulting Provider: Cedric Lane Reason for Consult: SBO Call Completed: Yes 06/20/19 23:27 Consult to Cardiology [CONS] Stat Comment: Consulting Provider: Cardiology Latesha Reason for Consult: ECG changes. Time Notified: 13:30 Call Completed: Yes 06/20/19 23:29 Consult to Physical Therapy [CONS] Routine Comment: Evaluate, develop and implement POC Reason for Consult: falls Does patient have active BEDREST order?: No Is patient medically & hemodynamically stable?: Yes Patient assessed for mobility or mobilized this visit?: No 06/21/19 19:58 Consult to Cardiac Rehabilitation-Phase1 [CONS] Routine Comment: Reason for Consult: AMI Call Completed: Yes Consult to Nurse Navigator [CONS] Routine Comment: 06/25/19 16:59 Consult to Nutrition [CONS] Routine Comment: Consulting Provider: NUTRITION Reason for Dietary Consult: TPN Start and Manage 06/26/19 09:00 Consult to Nephrology [CONS] Routine Consulting Provider: Kidney Latesha/HENNY/JOSE A/NELY Reason for Consult: Decreased urine output Call Completed: Yes 06/27/19 07:46 Consult to Interventional Radiology [CONS] Routine Consulting Provider: Radiology Interventional Cols Reason for Consult: Please eval for placement of a temporary HD catheter Call Completed: Yes 06/28/19 06:00 Consult to Oncology Hematology [CONS] Routine Consulting Provider: Saad Juarez Reason for Consult: severe thrombocytopenia with bleeding, and recent drug eluing stent placed. Call Completed: Yes 06/28/19 08:48 Consult to Palliative Care [CONS] Stat Comment: Consulting Provider: Palliative Care Latesha Reason for Consult: Goals of care discussion Time Notified: 08:49 Call Completed: Yes Pronouncing clinician: Rell Leahy
== END 2019-06-28 12:53 | disposition expired | DRG 329 ==
LOC: EMEROOARM 09:47 → 3ANU 09:47 → SUATTDRO 15:34 → 3ANU 16:40 → 2NNU 06-21 18:42 → ICNU 06-21 18:51 → 2ANU 06-22 13:26 → ICNU 06-24 12:26
PROVIDERS: ADMIT Internal Medicine; ATTEND Internal Medicine